=== PATIENT | female | born 1970 | race Caucasian/White ===

== ENCOUNTER → 2018-07-20 10:43 | Outpatient (CLI) | payer OTHER, SELFPAY ==
--- NOTE | 2018-07-20 | BRBX_PTH ---
PATIENT: TERRY FRANCO LOC: [facility] U#:[id number] AGE/SX: 55/F ROOM: RE07/20/[address]: Dr. Kya Bland MD : 1970 BED: DIS: SPEC #: [id number] RECD: 07/20/18 13:25 STATUS: LUIS AGUS #: [id number] YOHANA: 07/20/18 00:[address]: Kya Bland DEPT: SURGICAL PATHOLOGY RECD BY: Yousuf Potts ENTERED: 07/20/18 13:25 SP TYPE: BREAST BX OT DR: Dr. Monroe Dozier MD Tissues: Right breast, NOS Procedures: Surgery Specimen Level IV HEADER OPERATION: Right stereotactic breast biopsy PRE-OP DIAGNOSIS: Right upper outer quadrant microcalcifications TISSUE SUBMITTED: Right breast core tissue Ischemic time: 2 minutes Fixation time: 7.5 hours MICROSCOPIC DIAGNOSIS Right upper outer breast, stereotactic core biopsy: Focal intraductal hyperplasia without atypia. Nonproliferative fibrocystic change. Banal microcalcifications. No evidence of malignancy. AM:jayshree 07/21/18 MICROSCOPIC DESCRIPTION Slides are reviewed. GROSS DESCRIPTION Received is one container labeled with the patient's name and not further designated. The specimen consists of multiple irregular fragments of light marin-yellow soft tissue that in aggregate measure 2 x 1.6 x 0.2 cm. The specimen is totally submitted in one cassette. / AM:jayshree 07/20/18 TC:5 CPT: 24525
--- NOTE | 2018-07-20 16:47 | OP.PCM_ITS ---
Report of Operation Date of Procedure: 07/20/18 Pre-Operative Diagnosis: abnormal calcifications on right breast mammograms Post-Operative Diagnosis: same Surgery/Procedure Performed:: right stereotactic breast biopsy Description of Surgical Findings:: calcifications in upper outer quadrant of right breast, few calcifications seen on specimen mammogram Type of Anesthesia:: Local - 1% xylocaine Specimen's removed: right breast tissue Estimated Blood Loss (mL): < 1 ml Description of Procedure: After informed consent was given, the patient was brought into the breast biopsy suite. Appropriate time out protocol was followed. She was then placed in the prone position on the stereotactic biopsy table. The patient?s right breast was then placed at the opening at the head of the table. A strategic planning specialist compression mammogram was then obtained in the CC view. The suspicious radiological lesion was then identified. Stereo pictures of the lesion were then taken for XYZ coordinates. The Mammotome biopsy stylus was then positioned where it would be entering into the patient?s breast. The skin at this site was then cleansed with a surgical skin preparation. The skin and subcutaneous tissues at this site were then infiltrated with 1% xylocaine. A small skin incision was made with an 11 blade scalpel. The biopsy stylus was then positioned into the patient?s breast at the proper coordinates of depth. Using the Mammotome vacuum-assist device, several core samples of breast tissue were obtained. A specimen mammogram was the obtained and revealed that the suspicious lesion was within the specimen. A hemostatic marker clip was then placed into the biopsy cavity and a strategic planning specialist film revealed that it was properly deployed. The patient was then placed in the supine position and pressure was applied to the breast until no active bleeding was noted. Steristrips were applied to reapproximate the skin. A unilateral mammogram in the CC and MLO view were then taken which revealed that the marker clip was in the same area as the previous suspicious lesion. The patient tolerated the procedure well and was discharged from the breast biopsy suite in good condition. - Complications none noted
== END ==
PROVIDERS: Family Provider Family Medicine; PCP Family Medicine; Visit Provider Surgery
DX: N60.91 Unspecified benign mammary dysplasia of right breast (principal); N60.11 Diffuse cystic mastopathy of right breast; E10.9 Type 1 diabetes mellitus without complications; F41.9 Anxiety disorder, unspecified; Z79.82 Long term (current) use of aspirin; Z79.4 Long term (current) use of insulin; Z79.899 Other long term (current) drug therapy; F17.210 Nicotine dependence, cigarettes, uncomplicated
CPT/HCPCS: 19081; 88305; J7050

== ENCOUNTER 2020-09-17 16:42 | Emergency (ER) | payer OTHER, SELFPAY ==
[2020-09-17 16:42] VITALS: BP 151/86; PULSE 101; RESP 17; TEMP 36.2; O2SAT 100; BMI 25.8
--- NOTE | 2020-09-17 17:15 | ED.DCSUM_ITS ---
History of Present Illness Chief Complaint: Cold Sx Informant: Patient Current Severity: Mild Maximum Severity: Mild Narrative: The patient is a 50-year-old female with medical history significant for smoking that presents to the emergency department concerned that she may have Covid. She states that she was exposed about 10 days ago. She states that she was at a gathering with a band. She states 3 people in the band ended up testing posit crys. She states that she is also had other people that were at this gathering that tested positive. She denies any kiersten symptoms. She states she does smoke and has a cough, but states it has not significantly changed. She denies fever. She denies chest pain. She is otherwise been in her normal state of health. Prior similar symptoms: No Recent Illness/Hospitalization: No Past Medical History - Allergies and Home Meds Allergies/Adverse Reactions: Allergies No Known Allergies Allergy (Verified 09/17/20 16:44) Primary Care Physician: Monroe Dozier MD [Primary Care Provider] - Prior records reviewed: Yes Past Medical History: None Surgical History: no surgical history Smoking Status: Current every day smoker Review of Systems General: Denies: Chills, Fever, Sweats Eyes: Denies: Visual changes - bilaterally, Diplopia ENT: Denies: Rhinorrhea, Sore throat Cardiovascular: Denies: Chest pain, Palpitations Respiratory: Denies: Dyspnea, Cough, Dyspnea on exertion Gastrointestinal: Denies: Abdominal pain, Nausea, Vomiting, Diarrhea, Melena, Hematochezia Genitourinary: Denies: Dysuria, Hematuria, Frequency Musculoskeletal: Denies: Back pain, Extremity Pain Skin: Denies: Rash, Wounds Neurological: Denies: Headache, Weakness, Numbness Physical Exam Vital Signs/Narrative: Vital Signs Temp Pulse Resp BP Pulse Ox 09/17/20 16:42 97.2 F L 101 H 17 151/86 H 100 Inital Vital Signs reviewed: Yes General: Well nourished, Well developed, No Acute Distress Head: Normocephalic, Atraumatic Eyes: Perrl, EOMI ENT: Moist mucous membranes, No rhinorrhea Neck: Supple, Nontender Cardiovascular: Regular rate, Regular rhythm, No murmurs Respiratory: No distress, CTA bilaterally, Chest nontender Abdomen: Soft, Nontender, Nondistended, Normal bowel sounds Back: Nontender, Normal Inspection Extremities: Nontender, No edema Skin: Normal color, No rash Neurological: Alert, Oriented x3, Cranial nerves II-XII grossly intact, Normal Strength, Normal Sensation Psychological: Normal affect, Normal Mood Diagnostic/Tx/Re-eval - Medical Decision Making Patient is very well-appearing. She is not febrile. She is not hypoxic. She has no tachypnea. She really has no symptoms. Did discuss options. The patient will undergo a send out test. She was counseled to quarantine. She will follow-up for the results of this. She will be discharged home. Impression 1. Exposure to COVID-19 ED Disposition - Plan for ED Patient: Instructions: ED Upper Resp Infec No Abx Tx Referrals: Monroe Dozier MD [Primary Care Provider] -
== END 2020-09-17 18:02 | disposition home or self-care (01) ==
LOC: ED 18:01
PROVIDERS: Emergency Provider Emergency Medicine; PCP Family Medicine
DX: Z20.828 Contact with and (suspected) exposure to other viral communicable diseases (principal)
CPT/HCPCS: 87635; 99281; U0003

== ENCOUNTER 2020-12-31 14:10 | Inpatient (IN) | payer OTHER, SELFPAY ==
[2020-12-31] VITALS (28 sets, daily range): BP systolic 60–211; BP diastolic 38–135; PULSE 62–145; RESP 14–43; TEMP -17.7–37.9; O2SAT 92–100; BMI 32.7; BMI 32.8
[2020-12-31] MEDS: Etomidate 20 MG/10 ML Vial IV (14:18)
[2020-12-31] MEDS: 0.9% Normal Saline 1,000 ML 999 ML IV (14:20)
--- NOTE | 2020-12-31 14:20 | NURSING ---
1407 CODE BLUE 1417 STEMI
[2020-12-31] MEDS: Rocuronium Bromide 50 MG/5 ML Vial IV (14:21)
[2020-12-31] MEDS: Aspirin 300 MG Suppository RC (14:22)
[2020-12-31] MEDS: Heparin 10,000 UNITS/10 ML Vial 4000 UNITS IV (14:22)
--- NOTE | 2020-12-31 14:27 | NURSING ---
DR GUZMAN IN ROOM
--- NOTE | 2020-12-31 14:36 | EKG12_ITS ---
Test Reason : Blood Pressure : / mmHG Vent. Rate : 138 BPM Atrial Rate : 138 BPM P-R Int : 128 ms QRS Dur : 110 ms QT Int : 268 ms P-R-T Axes : 063 076 110 degrees QTc Int : 406 ms Sinus tachycardia with occasional Premature ventricular complexes ST elevation consider inferior injury or acute infarct ACUTE VT / STEMI Consider right ventricular involvement in acute inferior infarct Abnormal ECG Confirmed by OVI BARRAGAN, RUPESH ([id number]), staff editor GAUDENCIO HERZOG ([id number]) on 01/02/2021 10:28:34 AM Referred By: Rob Gracia Confirmed By:RUPESH DIOR MD
--- NOTE | 2020-12-31 14:38 | ED.DCSUM_ITS ---
- ER Visit Summary Date of Service: 12/31/20 Chief Complaint: V. fib arrest brought in by squad History of Present Illness: The patient is a 50 F history of diabetes insulin- dependent and smoker. No known cardiac history. According to the squad and the patient's sister she works to go to [employer]. Her sister also works to go to [employer]. 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 They started CPR at the scene the squad was called and arrived quickly. Family stated that she was admitted to another hospital in September for her diabetes. Sister stated that she has not had any complaints recently and did not have any complaints today prior to the episode. Physical Examination: Middle-aged female arrives via squad with a life band CPR device in place and doing CPR. She and I gel in place. Patient is unresponsive. She is not breathing on her own. Currently she is pulseless. CPR was continued. She was given a dose of epinephrine. H EENT exam unremarkable. Pupils about 3 mm bilaterally. They are not dilated. Neck nontender. Lungs clear to auscultation with bagging bilaterally. Initially she had no spontaneous heart tones. He did require abdomen soft nontender normal bowel sounds. Extremities are flaccid but warm. Initially she did not have femoral or carotid pulses. Neurologically she is completely unresponsive. Test Results: [] Emergency Department Course and Treatment: We continued CPR. Patient was given 1 dose of epinephrine here in the emergency department. She did regain pulses femoral and carotid. She was also given an amp of bicarbonate. And then a second. EKG was obtained which shows a sinus tachycardia with acute inferior wall MO. STEMI team was activated. Dr. Tarango from cardiology was in the emergency department evaluate the patient and took her to the [facility]. Prior to leaving the emergency department she had a second event where she was pulseless. Was given another dose of epinephrine. CPR was again restarted and she again regained her pulses. Patient was given a 4000 heparin bolus once the EKG confirmed acute inferior wall MO. She will be given rectal aspirin. Treatment Plan: Patient being taken to the cardiac catheterization lab for an acute inferior wall MO and cardiopulmonary arrest secondary to ventricular fibrillation. I spoken to her sisters in emergency department. She understands she is critically ill and also the concern not only of cardiac damage but also for possible anoxic brain injury. Procedure patient was given IV etomidate. Was intubated on the first attempt. I did remove her upper dentures. We obtained good bilateral breath sounds. There was a 7/2 ET tube at 22 cm at the lips. Good color change. Good vapor and ET tube. Disposition: Admission ICU from the [facility]. Impression: Acute cardiopulmonary arrest Acute ventricular fibrillation Acute PEA Acute inferior wall MO Intubated by emergency department This note was generated with Rdio dictation software. It may contain incorrect words, spelling, and punctuation that were not noted in review of the chart prior to signing ED Disposition - Plan for ED Patient: Referrals: Monroe Dozier MD [Primary Care Provider] -
--- NOTE | 2020-12-31 14:39 | NURSING ---
DR VALDEZ FOR DR BHAT
[2020-12-31 14:54] LABS: Hematocrit 39.3 % (37-47); Hemoglobin 11.9 g/dL (12.0-15.0); Mean Corp Hgb Conc 30.3 g/dL (32-36); Mean Corpuscular Hgb 29.8 pg (27.0-32.0); Mean Corpuscular Volume 98.5 fL (81-99); POSITIVE COUNT YES; POSITIVE DIFFERENTIAL YES; POSITIVE MORPHOLOGY YES; Platelet Count 108 K/mm3 (150-450); RBC Distribution Width CV 12.1 % (11.6-14.6); RBC Distribution Width SD 44.4 fl (35.1-43.9); Red Blood Count 3.99 M/mm3 (4.2-5.4); White Blood Count 9.8 K/mm3 (4.4-11.0)
--- NOTE | 2020-12-31 15:05 | CM.ED ---
Social Work Responding to Code Blue. Patient sister, Dalia present. Support provided. quill worker assisted with facilitating conversation with Dalia and Dr. Pope. Izzy Lutz also present for support. Per Dalia patient has daughter, Lian that is on her way. Dalia reports that Lian is patient HCPOA. Will continue to follow as needed. Kris Beaulieu MSW, ADAN-S
[2020-12-31 15:25] LABS: Basophil 1 % (0-1); Eosinophil 5 % (0-5); Lymphocyte 65 % (19-41); Metamyelocyte 1 % (0-1); Monocyte 4 % (0-10); Myelocyte 2 (0-0); Neutrophil-Band 8 % (0-5); Neutrophil-Segmented 14 % (47-70); Nucleated Red Bld Cells,Manual 1 % (0-5); Total Cells Counted 100 (MANUAL DIFF)
[2020-12-31 15:27] LABS: Differential Indicated MANUAL DIFF
[2020-12-31 15:28] LABS: Absolute Lymphocyte Count 6.39 X10^3/uL (0.83-4.51); Absolute Neutrophil Count 2.2 X10^3/uL (2.0-7.7); Reactive Lymphocyte 1+
[2020-12-31 15:29] LABS: Platelet Estimate SLT DEC (ADEQ); Red Cell Morphology NORM C+C NORMAL (NORM C&C)
--- NOTE | 2020-12-31 15:45 | EKG12_ITS ---
Test Reason : AM EKG Blood Pressure : / mmHG Vent. Rate : 123 BPM Atrial Rate : 123 BPM P-R Int : 114 ms QRS Dur : 084 ms QT Int : 324 ms P-R-T Axes : 061 054 102 degrees QTc Int : 463 ms Sinus tachycardia Otherwise normal ECG When compared with ECG of 01-JAN-2021 05:25, MANUAL COMPARISON REQUIRED, DATA IS UNCONFIRMED Confirmed by MEGAN BARRAGAN, ZACHARIAH ([id number]), photographic editor GAUDENCIO HERZOG ([id number]) on 01/03/2021 8:51:19 AM Referred By: Rob Gracia Confirmed By:GARY GUZMAN MD
[2020-12-31 15:51] LABS: Lactic Acid 11.1 mmol/L (0.4-1.9)
--- NOTE | 2020-12-31 15:51 | PCM.CONS.C ---
Problem List (1) Cardiac arrest Status: Acute (2) STEMI (ST elevation myocardial infarction) Status: Acute Reason for Consult Date of Consultation: 12/31/20 Reason for Consultation: cardiac arrest, STEMI History of Present Illness: The patient is a 50 year old F [who had a witnessed collapse. 911 was called and bystanders initiated CPR. When the paramedics came to the patient, she was in V. fib. CPR was continued and she required 6 shocks. CPR was continued for about half an hour on the way to the hospital. As she was entering the hospital she was in sinus rhythm and had a pulse. The EKG showed inferior ST elevation SC and STEMI alert was called. Patient was also intubated in the emergency room. She went into PEA in the emergency room and required epinephrine, bicarbonate and chest compressions for about 2 minutes. She regained a pulse and then after discussing with the family patient was brought emergently to the cardiac Primary Clinician. She was evaluated initially in the emergency room. She underwent emergency coronary angiography which revealed 99% stenosis in the RCA that was treated with drug-eluting stent basement. She has residual 70 to 80% stenosis in the proximal and mid LAD. She has an EF of around 35 to 40%. Review of systems: Patient is unresponsive and intubated. Review of systems cannot be obtained.] Past Medical History Allergies/Adverse Reactions: Allergies No Known Allergies Allergy (Verified 12/31/20 14:41) Surgical History: no surgical history Smoking Status: Unknown if ever smoked Objective: Vital Signs Temp Pulse Resp BP 0 F L 139 H 22 H 211/135 H 12/31/20 14:10 12/31/20 14:35 12/31/20 14:30 12/31/20 14:30 Oxygen Delivery Method Ambu-Bag Weight: 196 lb 10.437 oz Body Mass Index (BMI) 32.7 General: - - Intubated, unresponsive Cardiovascular: Regular Rhythm Abdomen: Distended Extremities: No edema Skin: No Rashes 12/31/20 14:20: WBC 9.8, RBC 3.99 L, Hgb 11.9 L, Hct 39.3, MCV 98.5, MCH 29.8, MCHC 30.3 L, Plt Count 108 L, MPV 11.0, Neut % (Auto) Not Reportable, Absolute Neuts (auto) 2.2, Total Counted 100, Neutrophils % (Manual) 14 L, Band Neutrophils % 8 H, Lymphocytes % (Manual) 65 H, Monocytes % (Manual) 4, Eosinophils % (Manual) 5, Basophils % (Manual) 1, Metamyelocytes % 1, Myelocytes % 2 H 12/31/20 14:20: Sodium Cancelled, Potassium Cancelled, Chloride Cancelled, Carbon Dioxide Cancelled, Anion Gap Cancelled, BUN Cancelled, Creatinine Cancelled, Est GFR (MDRD) Af Amer Cancelled, Est GFR (MDRD) Non-Af Cancelled, BUN/Creatinine Ratio Cancelled, Glucose Cancelled, Calcium Cancelled, Troponin I Cancelled 12/31/20 14:20: PT Cancelled, INR Cancelled, APTT Cancelled 12/31/20 15:10: Lactic Acid 11.1 H* 12/31/20 15:10: PT Cancelled, INR Cancelled, APTT Cancelled Rhythm: EKG: ECHO: Stress Test: Cardiac Cath: PCI: CT Surgery: Holter monitor: EPS: PPM: CXR: Chest CT Scan: Assessment/Plan 1. Cardiac arrest: Secondary to inferior ST elevation SC. Patient was initially in V. fib and then was in PEA. She underwent PCI to the RCA. She is intubated. We will admit her to the ICU for further management. Her clinical condition was discussed with the family in detail. It appears that she was in cardiac arrest for about half an hour. 2. Inferior ST elevation SC: Patient was treated with JOSE J to the RCA. We will keep her on dual antiplatelet therapy, statin. Her blood pressure is on the low side and we are not able to start her on a beta-sanaz or CHAVA inhibitor at this time.
[2020-12-31 15:52] LABS: Anion Gap 16 (5-15); BUN 11 mg/dL (7-18); BUN/Creat Ratio 8.4 RATIO (10-20); Calcium,Total 6.6 mg/dL (8.5-10.1); Chloride 105 mmol/L (98-107); Creatinine, Serum 1.31 mg/dL (0.55-1.02); EST Glomerular Filtration Rate 46 mL/min (>60); Est Glom Filt Rate - Afr Amer 56 mL/min (>60); Estimated Creatinine Clearance 47.26 ml/min; Glucose 438 mg/dL (74-106); Potassium 2.6 mmol/L (3.5-5.1); Sodium Level 144 mmol/L (136-145)
--- NOTE | 2020-12-31 15:56 | CHAPLAIN ---
Type of Pastoral Visit ___ Initial Visit ___ Follow-up Visit ___ On-call Visit ___ General Patient Visit ___ Spiritual Assessment ___ Family Conference ___ Bereavement ___ Rapid Response _x__ Code Blue ___ Other (describe below) Pastoral Care Referral From ___ Patient ___ Family ___ Nurse ___ Physician ___ Open End Spinning Operator ___ Vulcanizing Machine Operator _x__ Other (describe below) Sacrament/Intervention _x__ Active listening ___ Anointing ___ Synagogue ___ Bereavement ___ Communion ___ Serenity exploration ___ ___ Life review ___ Prayer ___ Reconciliation ___ Sacrament of Sick _x__ Supportive presence ___ Wedding ___ Other (describe below) Pastoral Comments responded to Code Blue which turned into Stemi and then Catheterization; sister/co-worker was present and along with SW support and presence was given; escorted sister to Plumbing Installer and stayed present as other family members arrived and joined the waiting; was present and gave water, food, and updates from staff to the family; SW followed up and hand off made
--- NOTE | 2020-12-31 16:03 | PCM.HP.STD ---
Problem List (1) Ventricular fibrillation Status: Acute (2) Acute hypoxic respiratory failure Status: Acute (3) Cardiac arrest Status: Acute (4) STEMI (ST elevation myocardial infarction) Status: Acute History of Present Illness Date of Admission: 12/31/20 Chief Complaint: Cardiac arrest outside hospital The patient is a 50 year old F with diabetes mellitus type 1, chronic smoker was brought by EMS with cardiac arrest outside hospital. 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 She started CPR at the scene and EMS arrived on the scene and took over. Patient was witnessed cardiac arrest at 1315 hrs. Patient was in V. fib and was shocked multiple times and then PEA. Patient had LMA with Ambu bag. 4 doses of epi given and 300 mg of IV amiodarone. Patient arrived in ER. Patient was on bag mask ventilation and CPR and received epinephrine, bicarbonate and was shocked. In ED, CPR was continued, PEA and had Epinephrine and bicarbonate. The patient was intubated. Twelve-lead EKG shows inferior wall STEMI. Sinus tachycardia at 138 bpm, reciprocal changes in V1 V2. [place] interval 128 ms, first-degree AV block, QRS 110 ms, QTC 406 ms. Patient was taken emergently to [employer] [facility] and mid RCA was 99% stenosis and had PCI and stent inserted. Patient is admitted in ICU. I talked briefly with the patient's daughter and sisters present in the [employer] [facility]. I discussed with Dr. Tarango about the [employer] [facility] report. [] Past Medical History Allergies No Known Allergies Allergy (Verified 12/31/20 14:41) Surgical History: no surgical history Smoking Status: Unknown if ever smoked - *Family History Maternal History Items: Unknown Review of Systems Unable to obtain accurate/complete ROS d/t: Unconscious, unresponsive, intubated. VTE Information - Inpt Only VTE Present on Admission: No VTE Mechan Device Prophylaxis: SCD's Reason prophylaxis not ordered:: Treatment Not Indicated - Patient just had a STEMI Patient Problems: Active and Suspected Problems Cardiac arrest (Acute) STEMI (ST elevation myocardial infarction) (Acute) Ventricular fibrillation (Acute) Acute hypoxic respiratory failure (Acute) Objective: Physical exam General: Unconscious, unresponsive, intubated on ventilator. HEENT: Bilateral pupils dilated. No light reflex or corneal reflex elicited. Oral: ET tube present. Neck: Supple, No JVD, Negative Carotid Bruits Lungs: Patient intubated on ventilator. Air entry diminished in bilateral lung bases. Cardiovascular: Heart sounds muffled. Carotid pulse present. No murmur gallop or rub. Abdomen: Possible gaseous from Ambu bag. Bowel Sounds absent, Soft, Non Tender. : No renal angle tenderness. No suprapubic tenderness. Extremities: No edema, Capillary Refill Less than 3 Seconds Skin: No rashes, No breakdown Musculoskeletal: No Tenderness to Palpation of Joints or Extremities Neurological: Neuro exam unobtainable. Psych/Mental Status: Intubated. - Physical Exam Vitals/I&O's: Vital Signs Temp Pulse Resp BP 0 F L 139 H 22 H 211/135 H 12/31/20 14:10 12/31/20 14:35 12/31/20 14:30 12/31/20 14:30 Oxygen Delivery Method Ambu-Bag Weight: 196 lb 10.437 oz Body Mass Index (BMI) 32.7 Laboratory Results 12/31/20 14:20: WBC 9.8, RBC 3.99 L, Hgb 11.9 L, Hct 39.3, MCV 98.5, MCH 29.8, MCHC 30.3 L, RDW Std Deviation 44.4 H, RDW Coeff of Ana 12.1, Plt Count 108 L, MPV 11.0, Neut % (Auto) Not Reportable, Absolute Neuts (auto) 2.2, Absolute Lymphs (auto) 6.39 H, Total Counted 100, Neutrophils % (Manual) 14 L, Band Neutrophils % 8 H, Lymphocytes % (Manual) 65 H, Monocytes % (Manual) 4, Eosinophils % (Manual) 5, Basophils % (Manual) 1, Metamyelocytes % 1, Myelocytes % 2 H, Nucleated RBCs/100 WBC 1, Diff Path Review May foll, Reactive Lymphocytes 1+, Platelet Estimate SLT DEC, RBC Morphology NORM C+C 12/31/20 14:20: Sodium Cancelled, Potassium Cancelled, Chloride Cancelled, Carbon Dioxide Cancelled, Anion Gap Cancelled, BUN Cancelled, Creatinine Cancelled, Estim Creat Clear Calc Cancelled, Est GFR (MDRD) Af Amer Cancelled, Est GFR (MDRD) Non-Af Cancelled, BUN/Creatinine Ratio Cancelled, Glucose Cancelled, Calcium Cancelled, Troponin I Cancelled 12/31/20 14:20: PT Cancelled, INR Cancelled, APTT Cancelled 12/31/20 15:10: Lactic Acid 11.1 H* 12/31/20 15:10: PT Cancelled, INR Cancelled, APTT Cancelled 12/31/20 15:10: Sodium 144, Potassium 2.6 L*, Chloride 105, Carbon Dioxide 23.0, Anion Gap 16 H, BUN 11, Creatinine 1.31 H, Estim Creat Clear Calc 47.26, Est GFR (MDRD) Af Amer 56 L, Est GFR (MDRD) Non-Af 46 L, BUN/Creatinine Ratio 8.4 L, Glucose 438 H, Calcium 6.6 L, Troponin I 3.870 H* Current Medications Aspirin (Aspirin E.C. 81 Mg Tablet) 81 mg PO DAILY@0800 [facility] Atorvastatin Calcium (Atorvastatin Calcium 40 Mg Tablet) 40 mg PO QHS [facility] Atropine Sulfate (Atropine Sulfate 1 Mg/10 Ml Syringe) 0.5 mg IV UD PRN PRN Reason: HR <50 bpm Heparin Sodium (Beef Lung) (Heparin Lock 500 Unit/5 Ml In 10 Ml Syringe) 500 unit IV UD PRN PRN Reason: HEPARIN FLUSH Sodium Chloride () 1,000 mls @ 60 mls/hr IV .[id number] [facility] Eptifibatide (Integrilin) 75 mg in 100 mls @ 14.272 mls/hr CONT INF .Q7H1M [facility] Stop: 12/31/20 19:00 Labetalol HCl (Labetalol (Prefilled) 20 Mg/4 Ml) 5 mg IV X1 PRN PRN Reason: SBP >160 when pulling sheath Stop: 01/02/21 15:45 Sodium Chloride (0.9% Normal Saline 500 Ml Iv.Soln.) 500 ml IV BOLUS PRN PRN Reason: VASO-VAGAL PROTOCOL Ticagrelor (Ticagrelor 90 Mg Tablet) 180 mg PO X1 ONE Stop: 12/31/20 15:46 Ticagrelor (Ticagrelor 90 Mg Tablet) 90 mg PO BID [facility] Assessment/Plan All Active Problems Cardiac arrest (Acute) STEMI (ST elevation myocardial infarction) (Acute) Ventricular fibrillation (Acute) Acute hypoxic respiratory failure (Acute) The patient is a 50 year old F with diabetes mellitus type 1, chronic smoker was brought by EMS with cardiac arrest outside hospital.Twelve-lead EKG shows inferior wall STEMI. Sinus tachycardia at 138 bpm, reciprocal changes in V1 V2. [place] interval 128 ms, first-degree AV block, QRS 110 ms, QTC 406 ms. Patient is admitted in ICU. 1. Cardiac arrest mostly due to inferior wall STEMI, complicated with ventricular fibrillation, PEA: Patient had short period of asystole in [employer] [facility] and had 1 dose of epinephrine and atropine in [employer] [facility] as per cruise staff member. Patient had emergent cardiac cath with PCI/stent in mid RCA. Mid RCA was about 99% stenosis. Patient is admitted in ICU. On aspirin, Brilinta, atorvastatin. Patient blood pressure is still low therefore no CHAVA or ARB if needed. Lactic acid 11.1, troponin III 0.87. 1 L Ringer lactate and then 150 mill per hour. Patient has sheath left on the radial artery access for A-line monitoring. 2. Acute hypoxic respiratory failure with cardiac arrest: Patient is on ventilator. ABG stat ordered. Patient has severe hypokalemia, K2.6, bicarb 23, anion gap 16. 40 M EQ IV KCl bolus. Serum magnesium, phosphorus, PT/INR, UA ordered. Serum test also ordered. COVID-19 PCR negative on 09/17/2020. 3. Severe hypokalemia, ventricular fibrillation, PEA: As mentioned above 4. Diabetes mellitus type 1: Accu-Chek every 4 hourly and cover with Humalog sliding scale. Glucose in BMP 438. A1c tomorrow a.m. 5. Chronic smoker: VTE prophylaxis: Bilateral SCDs. Patient just had cardiac cath therefore no antithrombotic agent for next 24 hours. Prognosis: I talked briefly with the patient's daughter and sisters present in the [employer] [facility]. I talked to the patient's daughter and 3 other sisters and try to explain the possibility of anoxic brain injury for prolonged period of cardiac arrest, CPR and difficulty in extubation. Inpatient E&M: 96571 Init Hosp L3
[2020-12-31 16:16] LABS: Base Excess 0 mmol/L (-2 to +2); Bicarbonate 25.7 mmol/L (22-26); Blood Gas Specimen Type ART; FI02 100; Mode AC; O2 Delivery Device Adult Vent; PEEP 5; PO2 230 mmHG (75-100); RR 24; SITE Art Line; SO2 100 % (95-99); Total Carbon Dioxide 27 mmol/L; Vt 450; pCO2 46.8 mmHg (35-45); pH 7.35 (7.35-7.45)
--- NOTE | 2020-12-31 16:25 | RAD_ITS ---
STUDY: X-RAY CHEST REASON FOR EXAM: Female, 50 years old. ETT PLACEMENT, OG PLACEMENT, S/P CPR TECHNIQUE: Single AP portable view of the chest. COMPARISON: FINDINGS: Interval placement of endotracheal tube with the tip approximately 3 cm above the kenisha. Interval placement of nasogastric tube with the tip below the diaphragm. Alveolar opacity throughout the right lung consistent with right-sided pneumonia. There is no demonstrated pleural abnormality. Normal size heart. Normal mediastinum and ish. Normal visualized pulmonary arteries. Normal visualized aortic arch and descending thoracic aorta. Normal visualized thoracic spine. Normal visualized ribs, clavicles, and shoulders. There is no demonstrated abnormality of the visualized soft tissue structures of the upper abdomen. RAD/Chest 1 View (Portable) IMPRESSION: 1. Interval placement of endotracheal tube with tip approximately 3 7 m above the kenisha. 2. Interval placement of nasogastric tube with the tip below the diaphragm. 3. Right-sided pneumonia. Electronically Signed: Akash Jamse MD at 17:23 EST Tel , Service support ,
[2020-12-31] MEDS: Propofol 10MG/Ml 1,000 MG/100 ML Bottle 5.4 MG CONT INF (16:44)
[2020-12-31] MEDS: Lactated Ringers 1,000 ML 999 ML IV ×2 (16:46→18:00)
[2020-12-31 16:49] LABS: Mucous, Urine 0 SEEN /hpf (<or=2+); Squamous Epithelial Cells - UA 0 SEEN /hpf (5-10)
--- NOTE | 2020-12-31 16:53 | PCS.PANDOC ---
PANDEMIC DOCUMENTATION INITIATED: Date: 12/31/20 Time: 5517
[2020-12-31 16:56] LABS: Hematocrit 34.5 % (37-47); Hemoglobin 11.6 g/dL (12.0-15.0); Mean Corp Hgb Conc 33.6 g/dL (32-36); Mean Corpuscular Hgb 30.9 pg (27.0-32.0); Mean Platelet Vol. 9.4 fl (6.2-12.0); Platelet Count 290 K/mm3 (150-450); RBC Distribution Width CV 12.2 % (11.6-14.6); RBC Distribution Width SD 41.2 fl (35.1-43.9); Red Blood Count 3.75 M/mm3 (4.2-5.4); White Blood Count 22.6 K/mm3 (4.4-11.0)
[2020-12-31 16:57] LABS: Color, Urine Yellow (Yellow); Glucose, Dipstick 1000 mg/dl (Normal); Ketone-Dipstick Negative (Negative); Leukocyte Esterase-Dipstick 25 /ul (Negative); Nitrite-Dipstick Negative (Negative); Occult Blood-Urine 250 /ul (Negative); Protein-Dipstick 100 mg/dl (Negative); Urine Bilirubin Dipstick Negative (Negative); Urine Clarity Sl. Cloudy (Clear); Urine Urobilinogen Normal (Normal)
[2020-12-31 16:58] LABS: Internal QC Validated? YES +Cl - CLEAR BKGD; International Normalized Ratio 1.4; Pregnancy, Serum, hCG Quali. NEGATIVE Negative; Prothrombin Time (Protime)PT. 16.7 SECONDS (11.7-14.9)
[2020-12-31 17:00] LABS: Magnesium 1.8 mg/dL (1.6-2.6)
[2020-12-31 17:03] LABS: POSITIVE COUNT NO; POSITIVE DIFFERENTIAL NO; POSITIVE MORPHOLOGY NO; Scan Indicated on CBC? Y/N NO
[2020-12-31 17:06] LABS: Bacteria RARE /hpf (None Seen); Red Blood Cells-Urine 5-10 SEEN /hpf (0-5); White Blood Cells 0-5 SEEN /hpf (0-5)
[2020-12-31 17:15] LABS: Partial Thromboplast Time > 250.0 Seconds (24.1-36.2)
[2020-12-31 17:22] LABS: CPK Total, Creatine Kinase 1504 U/L (26-192); Triglycerides 59 mg/dL
[2020-12-31] MEDS: Lactated Ringers 1,000 ML 150 ML IV ×2 (17:23→23:53)
[2020-12-31] MEDS: Potassium Chloride 10mEq/100mL 10 MEQ/100 ML IV.SOLN. 100 MEQ IV BOLUS ×4 (17:23→21:35)
[2020-12-31 17:56] LABS: AST(SGOT) 387 U/L (15-37); Alanine Aminotransfer ALT/SGPT 161 U/L (13-56); Albumin, Serum 2.7 g/dL (3.2-5.0); Alkaline Phosphatase 419 U/L (45-117); Bilirubin, Direct 0.11 mg/dL (0.00-0.30); Globulin 3.3 g/dL (2.2-4.2); Phosphorus 4.4 mg/dL (2.5-4.9)
[2020-12-31 18:04] LABS: M R Staph aureus DNA By PCR Negative (Negative); Probe Check PASS; Specimen Processing Control PASS
--- NOTE | 2020-12-31 18:25 | RAD_ITS ---
STUDY: X-RAY - ABDOMEN/PELVIS REASON FOR EXAM: Female, 50 years old. NG/OG tube placement TECHNIQUE: Single AP view of the abdomen / pelvis. COMPARISON: None. FINDINGS: Normal visualized lung bases. Nasogastric tube is coiled in the fundus of the stomach. Abnormal loops of small bowel are seen in the left mid abdomen. RAD/Abdomen Single View (Portable) IMPRESSION: Nasogastric tube is coiled in the fundus of the stomach. Electronically Signed: Dariel Eid MD at 19:19 EST , Service support ,
[2020-12-31 19:17] LABS: Reflex Lactate? Y
--- NOTE | 2020-12-31 20:00 | RAD_ITS ---
STUDY: X-RAY CHEST REASON FOR EXAM: Female, 50 years old. CENTRAL LINE PLACEMENT TECHNIQUE: Single AP portable view of the chest. COMPARISON: Same day 4:18 PM. FINDINGS: Endotracheal tube terminates 3.5 cm above the kenisha. Nasogastric tube coiled in the fundus of the stomach. New right IJ line terminates in the mid SVC. No pneumothorax. No other change since 4 hours earlier. Electronically Signed: Dariel Eid MD at 20:38 EST , Service support , RAD/Chest 1 View (Portable)
--- NOTE | 2020-12-31 20:10 | PRO.PCM_ITS ---
Problem List (1) Ventricular fibrillation Status: Acute (2) Acute hypoxic respiratory failure Status: Acute (3) Cardiac arrest Status: Acute (4) STEMI (ST elevation myocardial infarction) Status: Acute Procedure Report Date of Procedure: 12/31/20 Ultrasound-guided right IJ CVC catheter insertion Indication: Shock most probably cardiac shock but may be additional septic shock, needs vasopressor Procedure: Right neck and supraclavicular area was sterilized and draped. With ultrasound probe, right IJ was located and marked. Lidocaine 1% was used for local anesthesia. Under ultrasound guidance, right IJ vein was punctured and guidewire was passed without obstruction. Subsequently, the track was dilated with dilator and triple-lumen catheter was inserted over the guidewire. Good venous blood return from all 3 ports. Dressing was done. No hematoma or excessive bleeding. Portable chest x-ray was ordered, done and reviewed. Right IJ tip is at cavoat rial junction. No pneumothorax. Other findings as right lung diffuse infiltrates suggestive of possible pneumonic infiltrates or possible aspiration Procedures: [id number] Insert Non-tunnel CV Cath
[2020-12-31 21:14] LABS: Lactic Acid 5.2 mmol/L (0.4-1.9)
[2020-12-31] MEDS: TICAGRELOR 90 MG TABLET 180 MG PO (21:41)
[2020-12-31] MEDS: Atorvastatin Calcium 40 MG Tablet PO (21:50)
[2020-12-31] MEDS: Propofol 10MG/Ml 1,000 MG/100 ML Bottle 10.7 MG CONT INF (23:49)
[2021-01-01] VITALS (74 sets, daily range): BP systolic 71–154; BP diastolic 34–95; PULSE 83–150; RESP 12–43; TEMP 36.6–39.1; O2SAT 91–99; BMI 24.1
[2021-01-01 04:08] LABS: Absolute Lymphocyte Count 0.85 X10^3/uL (0.83-4.51); Absolute Neutrophil Count 21.3 X10^3/uL (2.0-7.7); Basophil# 0.05 X10^3/uL; Basophil% 0.2 % (0-1); Eosinophil# 0.01 X10^3/uL; Hematocrit 30.4 % (37-47); Hemoglobin 10.1 g/dL (12.0-15.0); Lymphocyte # 0.85 X10^3/ul (4.0); Lymphocyte % 3.6 % (19-41); Mean Corp Hgb Conc 33.2 g/dL (32-36); Mean Corpuscular Volume 93.3 fL (81-99); Mean Platelet Vol. 9.6 fl (6.2-12.0); Monocyte% 5.1 % (0-10); NRBC Flagged by Analyzer 0 % (0-5); Neutrophil # 21.28 X10^3/uL (2.7-7.7); Neutrophil % 90.2 % (47-70); POSITIVE DIFFERENTIAL YES; Platelet Count 230 K/mm3 (150-450); RBC Distribution Width CV 12.4 % (11.6-14.6); RBC Distribution Width SD 42.2 fl (35.1-43.9); Red Blood Count 3.26 M/mm3 (4.2-5.4); White Blood Count 23.6 K/mm3 (4.4-11.0)
[2021-01-01 04:09] LABS: Differential Indicated SCAN CRITERIA MET
[2021-01-01] MEDS: Insulin Lispro 100 UNIT/ML INSULN.PEN SC ×2 (04:59→10:36)
[2021-01-01 05:11] LABS: ALB/GLOB Ratio 0.8 RATIO (0.9-2.4); AST(SGOT) 292 U/L (15-37); Alanine Aminotransfer ALT/SGPT 124 U/L (13-56); Albumin, Serum 2.4 g/dL (3.2-5.0); Alkaline Phosphatase 288 U/L (45-117); Anion Gap 13 (5-15); BUN 21 mg/dL (7-18); BUN/Creat Ratio 13.5 RATIO (10-20); Calcium,Total 7.7 mg/dL (8.5-10.1); Chloride 106 mmol/L (98-107); Creatinine, Serum 1.55 mg/dL (0.55-1.02); EST Glomerular Filtration Rate 38 mL/min (>60); Est Glom Filt Rate - Afr Amer 46 mL/min (>60); Estimated Creatinine Clearance 38.33 ml/min; Glucose 498 mg/dL (74-106); Potassium 4.4 mmol/L (3.5-5.1); Protein, Total 5.4 g/dL (6.4-8.2); Sodium Level 141 mmol/L (136-145); Thyroid Stim Hormone (TSH) 2.79 uIU/mL (0.358-3.74)
--- NOTE | 2021-01-01 06:20 | CON.PCM_ITS ---
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 The patient does have a known history of type 1 diabetes mellitus. The remainder of her medical history is unknown, as there is no family available at the bedside. On presentation to the emergency department, CPR was in progress. The patient's eye gel was removed and she was intubated with an endotracheal tube. Shortly after arriving to the ED, return of spontaneous circulation was achieved. Cardiology was contacted to evaluate the patient after an EKG revealed sinus tachycardia with an acute inferior wall GA. Prior to leaving the emergency department, the patient once again became pulseless and experienced a second arrest due to ventricular fibrillation. The patient underwent cardiac catheterization which revealed a 99% stenosis in the RCA which was treated with a drug-eluting stent. She was noted to have residual 70 to 80% stenosis in the proximal and mid LAD. Ejection fraction was noted to be 35 to 40%. The patient did develop an elevated white blood cell count to 22,000 overnight. She did have a presenting potassium which was low at 2.6 noted on her chemistry profile. Creatinine was elevated at 1.3. Initial lactate was documented to be 11.1. Urine analysis was largely unremarkable. MRSA screen was negative. Chest x-ray revealed diffuse right-sided airspace opacities. Past Medical History Allergies No Known Allergies Allergy (Verified 12/31/20 14:41) Surgical History: no surgical history Smoking Status: Unknown if ever smoked - *Family History Maternal History Items: Unknown Review of Systems Unable to obtain accurate/complete ROS d/t: Due to current intubation and mechanical ventilation status Patient Problems: Active and Suspected Problems Cardiac arrest (Acute) STEMI (ST elevation myocardial infarction) (Acute) Ventricular fibrillation (Acute) Acute hypoxic respiratory failure (Acute) Objective: The patient's most recent lab work, culture data and imaging studies have all been personally reviewed. Respiratory viral panel was negative. Strep and urine Legionella antigens were negative. Blood and sputum cultures are pending. - Physical Exam Vitals/I&O's: Vital Signs Temp Pulse Resp BP Pulse Ox 99.9 F H 124 H 12 105/53 L 95 02/10/21 05:00 01/01/21 05:00 01/01/21 05:00 01/01/21 05:00 01/01/21 05:00 Oxygen Delivery Method Mechanical Ventilator Weight: 144 lb 13.499 oz Body Mass Index (BMI) 32.8 Intake and Output for Last 24 Hours 12/30/20 12/31/20 01/01/21 23:59 23:59 23:59 Intake Total 4938.52 / 4993.63 209.75 / 209.75 Output Total 295 / 395 810 / 810 Balance 4643.52 / 4598.63 -600.25 / -600.25 General: - - Currently intubated and mechanically ventilated. No ventilator dyssynchrony noted. HEENT: Atraumatic, Normocephalic, - - Brisk left pupillary response Oral: No Gingival or Mucosal Lesions/ Ulcerations, - - Endotracheal and OG tubes in place Neck: Supple, No Nodes, Trachea Midline, - - Right IJ central venous catheter in place Lungs: No rhonchi, No wheeze, No rales, Diminished Cardiovascular: Normal S1, Normal S2, No murmurs, Tachycardic Abdomen: Bowel Sounds Present, Soft, Non Tender Extremities: No clubbing, No cyanosis, No edema Skin: No breakdown Musculoskeletal: No Muscle Wasting Lymphatic: No Cervical, Supraclavicular, or Inguinal Adenopathy Neurological: - - The patient is currently off of all forms of sedation and remains nonresponsive. She is, nevertheless, overbreathing the set rate on the ventilator. Labs (Last 48 Hours) 12/31/20 12/31/20 12/31/20 14:20 14:20 14:20 WBC 9.8 RBC 3.99 L Hgb 11.9 L Hct 39.3 MCV 98.5 MCH 29.8 MCHC 30.3 L RDW Std Deviation 44.4 H RDW Coeff of Ana 12.1 Plt Count 108 L MPV 11.0 Immature Gran % (Auto) Neut % (Auto) Not Reportable Lymph % (Auto) [place] % (Auto) Eos % (Auto) Baso % (Auto) Absolute Neuts (auto) 2.2 Absolute Lymphs (auto) 6.39 H Total Counted 100 Neutrophils % (Manual) 14 L Band Neutrophils % 8 H Lymphocytes % (Manual) 65 H Monocytes % (Manual) 4 Eosinophils % (Manual) 5 Basophils % (Manual) 1 Metamyelocytes % 1 Myelocytes % 2 H Nucleated RBC % Nucleated RBCs/100 WBC 1 Diff Path Review May foll Reactive Lymphocytes 1+ Platelet Estimate SLT DEC RBC Morphology NORM C+C PT Cancelled INR Cancelled APTT Cancelled Specimen Type Sample Site pH Bicarbonate Actual Total CO2 Base Excess O2 Saturation O2 % ABG pCO2 ABG pO2 Respiration Rate O2 Delivery Device Vent Mode Tidal Volume POC PEEP Sodium Cancelled Potassium Cancelled Chloride Cancelled Carbon Dioxide Cancelled Anion Gap Cancelled BUN Cancelled Creatinine Cancelled Estim Creat Clear Calc Cancelled Est GFR (MDRD) Af Amer Cancelled Est GFR (MDRD) Non-Af Cancelled BUN/Creatinine Ratio Cancelled Glucose Cancelled Lactic Acid Calcium Cancelled Phosphorus Magnesium Total Bilirubin Direct Bilirubin AST ALT Alkaline Phosphatase Total Creatine Kinase Troponin I Cancelled Total Protein Albumin Globulin Albumin/Globulin Ratio Triglycerides TSH Serum , Qual Urine Color Urine Clarity Urine pH Ur Specific Adams Urine Protein Urine Glucose (UA) Urine Ketones Urine Occult Blood Urine Nitrite Urine Bilirubin Urine Urobilinogen Ur Leukocyte Esterase Urine RBC Urine WBC Ur Squamous Epith Cells Urine Bacteria Urine Mucus MRSA (PCR) 12/31/20 12/31/20 12/31/20 15:10 15:10 15:10 WBC RBC Hgb Hct MCV MCH MCHC RDW Std Deviation RDW Coeff of Ana Plt Count MPV Immature Gran % (Auto) Neut % (Auto) Lymph % (Auto) [place] % (Auto) Eos % (Auto) Baso % (Auto) Absolute Neuts (auto) Absolute Lymphs (auto) Total Counted Neutrophils % (Manual) Band Neutrophils % Lymphocytes % (Manual) Monocytes % (Manual) Eosinophils % (Manual) Basophils % (Manual) Metamyelocytes % Myelocytes % Nucleated RBC % Nucleated RBCs/100 WBC Diff Path Review Reactive Lymphocytes Platelet Estimate RBC Morphology PT Cancelled INR Cancelled APTT Cancelled Specimen Type Sample Site pH Bicarbonate Actual Total CO2 Base Excess O2 Saturation O2 % ABG pCO2 ABG pO2 Respiration Rate O2 Delivery Device Vent Mode Tidal Volume POC PEEP Sodium 144 Potassium 2.6 L* Chloride 105 Carbon Dioxide 23.0 Anion Gap 16 H BUN 11 Creatinine 1.31 H Estim Creat Clear Calc 47.26 Est GFR (MDRD) Af Amer 56 L Est GFR (MDRD) Non-Af 46 L BUN/Creatinine Ratio 8.4 L Glucose 438 H Lactic Acid 11.1 H* Calcium 6.6 L Phosphorus Magnesium Total Bilirubin Direct Bilirubin AST ALT Alkaline Phosphatase Total Creatine Kinase Troponin I 3.870 H* Total Protein Albumin Globulin Albumin/Globulin Ratio Triglycerides TSH Serum , Qual Urine Color Urine Clarity Urine pH Ur Specific Adams Urine Protein Urine Glucose (UA) Urine Ketones Urine Occult Blood Urine Nitrite Urine Bilirubin Urine Urobilinogen Ur Leukocyte Esterase Urine RBC Urine WBC Ur Squamous Epith Cells Urine Bacteria Urine Mucus MRSA (PCR) 12/31/20 12/31/20 12/31/20 16:08 16:35 16:35 WBC 22.6 H RBC 3.75 L Hgb 11.6 L Hct 34.5 L MCV 92.0 D MCH 30.9 MCHC 33.6 D RDW Std Deviation 41.2 RDW Coeff of Ana 12.2 Plt Count 290 MPV 9.4 Immature Gran % (Auto) Neut % (Auto) Lymph % (Auto) [place] % (Auto) Eos % (Auto) Baso % (Auto) Absolute Neuts (auto) Absolute Lymphs (auto) Total Counted Neutrophils % (Manual) Band Neutrophils % Lymphocytes % (Manual) Monocytes % (Manual) Eosinophils % (Manual) Basophils % (Manual) Metamyelocytes % Myelocytes % Nucleated RBC % Nucleated RBCs/100 WBC Diff Path Review Reactive Lymphocytes Platelet Estimate RBC Morphology PT 16.7 H INR 1.4 APTT > 250.0 H* Specimen Type ART Sample Site Art Line pH 7.35 Bicarbonate Actual 25.7 Total CO2 27 Base Excess 0 O2 Saturation 100 H O2 % 100 ABG pCO2 46.8 H ABG pO2 230 H Respiration Rate 24 O2 Delivery Device Adult Vent Vent Mode AC Tidal Volume 450 POC PEEP 5 Sodium Potassium Chloride Carbon Dioxide Anion Gap BUN Creatinine Estim Creat Clear Calc Est GFR (MDRD) Af Amer Est GFR (MDRD) Non-Af BUN/Creatinine Ratio Glucose Lactic Acid Calcium Phosphorus Magnesium Total Bilirubin Direct Bilirubin AST ALT Alkaline Phosphatase Total Creatine Kinase Troponin I Total Protein Albumin Globulin Albumin/Globulin Ratio Triglycerides TSH Serum , Qual Urine Color Urine Clarity Urine pH Ur Specific Adams Urine Protein Urine Glucose (UA) Urine Ketones Urine Occult Blood Urine Nitrite Urine Bilirubin Urine Urobilinogen Ur Leukocyte Esterase Urine RBC Urine WBC Ur Squamous Epith Cells Urine Bacteria Urine Mucus MRSA (PCR) 12/31/20 12/31/20 12/31/20 16:35 16:35 16:35 WBC RBC Hgb Hct MCV MCH MCHC RDW Std Deviation RDW Coeff of Ana Plt Count MPV Immature Gran % (Auto) Neut % (Auto) Lymph % (Auto) [place] % (Auto) Eos % (Auto) Baso % (Auto) Absolute Neuts (auto) Absolute Lymphs (auto) Total Counted Neutrophils % (Manual) Band Neutrophils % Lymphocytes % (Manual) Monocytes % (Manual) Eosinophils % (Manual) Basophils % (Manual) Metamyelocytes % Myelocytes % Nucleated RBC % Nucleated RBCs/100 WBC Diff Path Review Reactive Lymphocytes Platelet Estimate RBC Morphology PT Cancelled INR Cancelled APTT Specimen Type Sample Site pH Bicarbonate Actual Total CO2 Base Excess O2 Saturation O2 % ABG pCO2 ABG pO2 Respiration Rate O2 Delivery Device Vent Mode Tidal Volume POC PEEP Sodium Potassium Chloride Carbon Dioxide Anion Gap BUN Creatinine Estim Creat Clear Calc Est GFR (MDRD) Af Amer Est GFR (MDRD) Non-Af BUN/Creatinine Ratio Glucose Lactic Acid Calcium Phosphorus Magnesium 1.8 Total Bilirubin Direct Bilirubin AST ALT Alkaline Phosphatase Total Creatine Kinase Troponin I Total Protein Albumin Globulin Albumin/Globulin Ratio Triglycerides TSH Serum , Qual NEGATIVE Urine Color Urine Clarity Urine pH Ur Specific [place] Urine Protein Urine Glucose (UA) Urine Ketones Urine Occult Blood Urine Nitrite Urine Bilirubin Urine Urobilinogen Ur Leukocyte Esterase Urine RBC Urine WBC Ur Squamous Epith Cells Urine Bacteria Urine Mucus MRSA (PCR) 12/31/20 12/31/20 12/31/20 16:35 16:35 16:40 WBC RBC Hgb Hct MCV MCH MCHC RDW Std Deviation RDW Coeff of Ana Plt Count MPV Immature Gran % (Auto) Neut % (Auto) Lymph % (Auto) [place] % (Auto) Eos % (Auto) Baso % (Auto) Absolute Neuts (auto) Absolute Lymphs (auto) Total Counted Neutrophils % (Manual) Band Neutrophils % Lymphocytes % (Manual) Monocytes % (Manual) Eosinophils % (Manual) Basophils % (Manual) Metamyelocytes % Myelocytes % Nucleated RBC % Nucleated RBCs/100 WBC Diff Path Review Reactive Lymphocytes Platelet Estimate RBC Morphology PT INR APTT Specimen Type Sample Site pH Bicarbonate Actual Total CO2 Base Excess O2 Saturation O2 % ABG pCO2 ABG pO2 Respiration Rate O2 Delivery Device Vent Mode Tidal Volume POC PEEP Sodium Potassium Chloride Carbon Dioxide Anion Gap BUN Creatinine Estim Creat Clear Calc Est GFR (MDRD) Af Amer Est GFR (MDRD) Non-Af BUN/Creatinine Ratio Glucose Lactic Acid Calcium Phosphorus 4.4 Magnesium Total Bilirubin 0.50 Direct Bilirubin 0.11 AST 387 H ALT 161 H Alkaline Phosphatase 419 H Total Creatine Kinase 1504 H Troponin I Total Protein 6.0 L Albumin 2.7 L Globulin 3.3 Albumin/Globulin Ratio Triglycerides 59 TSH Serum , Qual Urine Color Yellow Urine Clarity Sl. Cloudy Urine pH 5.0 Ur Specific Adams 1.010 Urine Protein 100 H Urine Glucose (UA) 1000 H Urine Ketones Negative Urine Occult Blood 250 H Urine Nitrite Negative Urine Bilirubin Negative Urine Urobilinogen Normal Ur Leukocyte Esterase 25 H Urine RBC 5-10 SEEN Urine WBC 0-5 SEEN Ur Squamous Epith Cells 0 SEEN Urine Bacteria RARE Urine Mucus 0 SEEN MRSA (PCR) 12/31/20 12/31/20 01/01/21 16:40 20:20 04:00 WBC RBC Hgb Hct MCV MCH MCHC RDW Std Deviation RDW Coeff of Ana Plt Count MPV Immature Gran % (Auto) Neut % (Auto) Lymph % (Auto) [place] % (Auto) Eos % (Auto) Baso % (Auto) Absolute Neuts (auto) Absolute Lymphs (auto) Total Counted Neutrophils % (Manual) Band Neutrophils % Lymphocytes % (Manual) Monocytes % (Manual) Eosinophils % (Manual) Basophils % (Manual) Metamyelocytes % Myelocytes % Nucleated RBC % Nucleated RBCs/100 WBC Diff Path Review Reactive Lymphocytes Platelet Estimate RBC Morphology PT INR APTT Specimen Type Sample Site pH Bicarbonate Actual Total CO2 Base Excess O2 Saturation O2 % ABG pCO2 ABG pO2 Respiration Rate O2 Delivery Device Vent Mode Tidal Volume POC PEEP Sodium 141 Potassium 4.4 Chloride 106 Carbon Dioxide 22.0 Anion Gap 13 BUN 21 H Creatinine 1.55 H Estim Creat Clear Calc 38.33 Est GFR (MDRD) Af Amer 46 L Est GFR (MDRD) Non-Af 38 L BUN/Creatinine Ratio 13.5 Glucose 498 H* Lactic Acid 5.2 H* Calcium 7.7 L Phosphorus Magnesium Total Bilirubin 0.90 Direct Bilirubin AST 292 H ALT 124 H Alkaline Phosphatase 288 H Total Creatine Kinase Troponin I 68.600 H* Total Protein 5.4 L Albumin 2.4 L Globulin 3.0 Albumin/Globulin Ratio 0.8 L Triglycerides TSH 2.79 Serum , Qual Urine Color Urine Clarity Urine pH Ur Specific [place] Urine Protein Urine Glucose (UA) Urine Ketones Urine Occult Blood Urine Nitrite Urine Bilirubin Urine Urobilinogen Ur Leukocyte Esterase Urine RBC Urine WBC Ur Squamous Epith Cells Urine Bacteria Urine Mucus MRSA (PCR) Negative 01/01/21 Unknown WBC 23.6 H RBC 3.26 L Hgb 10.1 L Hct 30.4 L MCV 93.3 MCH 31.0 MCHC 33.2 RDW Std Deviation 42.2 RDW Coeff of Ana 12.4 Plt Count 230 MPV 9.6 Immature Gran % (Auto) 0.900 Neut % (Auto) 90.2 H Lymph % (Auto) 3.6 L [place] % (Auto) 5.1 Eos % (Auto) 0.0 Baso % (Auto) 0.2 Absolute Neuts (auto) 21.3 H Absolute Lymphs (auto) 0.85 Total Counted Neutrophils % (Manual) Band Neutrophils % Lymphocytes % (Manual) Monocytes % (Manual) Eosinophils % (Manual) Basophils % (Manual) Metamyelocytes % Myelocytes % Nucleated RBC % 0 Nucleated RBCs/100 WBC Diff Path Review Reactive Lymphocytes Platelet Estimate RBC Morphology PT INR APTT Specimen Type Sample Site pH Bicarbonate Actual Total CO2 Base Excess O2 Saturation O2 % ABG pCO2 ABG pO2 Respiration Rate O2 Delivery Device Vent Mode Tidal Volume POC PEEP Sodium Potassium Chloride Carbon Dioxide Anion Gap BUN Creatinine Estim Creat Clear Calc Est GFR (MDRD) Af Amer Est GFR (MDRD) Non-Af BUN/Creatinine Ratio Glucose Lactic Acid Calcium Phosphorus Magnesium Total Bilirubin Direct Bilirubin AST ALT Alkaline Phosphatase Total Creatine Kinase Troponin I Total Protein Albumin Globulin Albumin/Globulin Ratio Triglycerides TSH Serum , Qual Urine Color Urine Clarity Urine pH Ur Specific [place] Urine Protein Urine Glucose (UA) Urine Ketones Urine Occult Blood Urine Nitrite Urine Bilirubin Urine Urobilinogen Ur Leukocyte Esterase Urine RBC Urine WBC Ur Squamous Epith Cells Urine Bacteria Urine Mucus MRSA (PCR) Microbiology 12/31/20 22:40 Mucosa - Nasopharyngeal Respiratory Panel (PCR) - Final 12/31/20 16:40 Urine Catheter - De Jesus Legionella Antigen - Final 12/31/20 16:40 Urine Catheter - De Jesus Streptococcus pneumoniae Antigen (M - Final Clinical Impression(s) from Imaging Studies Chest X-Ray 12/31/20 16:25 IMPRESSION: 1. Interval placement of endotracheal tube with tip approximately 3 7 m above the kenisha. 2. Interval placement of nasogastric tube with the tip below the diaphragm. 3. Right-sided pneumonia. Electronically Signed: Akash James MD at 17:23 EST Tel , Service support , KUB X-Ray 12/31/20 18:25 IMPRESSION: Nasogastric tube is coiled in the fundus of the stomach. Electronically Signed: Dariel Eid MD at 19:19 EST , Service support , Chest X-Ray 12/31/20 20:00 Current Medications Acetaminophen (Acetaminophen 325 Mg Tablet) 650 mg PO Q6H PRN PRN PRN Reason: Pain Score 1-10/Temp > 100.7 F Albuterol/Ipratropium (Ipratropium/Albuterol Sulfate 3 Ml Ampul.Neb) 3 ml INHALATION Q4H.RT PRN PRN Reason: wheezing Aspirin (Aspirin E.C. 81 Mg Tablet) 81 mg PO DAILY@0800 [facility] Atorvastatin Calcium (Atorvastatin Calcium 40 Mg Tablet) 40 mg PO QHS [facility] Last Admin: 12/31/20 21:50 Dose: 40 mg Documented by: Atropine Sulfate (Atropine Sulfate 1 Mg/10 Ml Syringe) 0.5 mg IV UD PRN PRN Reason: HR <50 bpm Heparin Sodium (Beef Lung) (Heparin Lock 500 Unit/5 Ml In 10 Ml Syringe) 500 unit IV UD PRN PRN Reason: HEPARIN FLUSH Lactated Ringer's () 1,000 mls @ 75 mls/hr IV .[id number] [facility] Last Admin: 12/31/20 23:53 Dose: 150 mls/hr Documented by: Propofol (Diprivan) 1,000 mg in 100 mls @ 5.352 mls/hr CONT INF .Q12H [facility]; Protocol Last Titration: 01/01/21 05:00 Dose: 10 mcg/kg/min, 5.4 mls/hr Documented by: Fentanyl Citrate 1,000 mcg/ (Sodium Chloride) 100 mls @ 5 mls/hr CONT INF .Q20H [facility]; Protocol Last Admin: 01/01/21 05:10 Dose: 50 mcg/hr, 5 mls/hr Documented by: Sodium Chloride () 250 mls @ 15 mls/hr IV .[id number] PRN PRN Reason: Saline Flush Sodium Chloride () 250 mls @ 15 mls/hr IV .[id number] PRN PRN Reason: Additional IVPB Infusion Piperacillin Sod/Tazobactam (Sod 3.375 gm/ Sodium Chloride) 50 mls @ 12.5 mls/hr IV Q8 [facility] Last Infusion: 01/01/21 01:00 Dose: Infused Documented by: Vancomycin IV Pharmacy to Dose (1 ea/ Sodium Chloride) 500 mls @ 250 mls/hr IV DAILY PRN; Protocol PRN Reason: RX to dose Norepinephrine Bitartrate 8 mg (/ Sodium Chloride) 250 mls @ 9.375 mls/hr CONT INF .[id number] [facility]; Protocol Last Titration: 01/01/21 05:36 Dose: 5 mcg/min, 9.4 mls/hr Documented by: Vancomycin HCl 750 mg/ Sodium (Chloride) 265 mls @ 250 mls/hr IV Q12H [facility] Insulin Human Lispro (Insulin Lispro 100 Unit/Ml Insuln.Pen) 0 unit SC Q4 [facility]; Protocol Last Admin: 01/01/21 04:59 Dose: 4 units Documented by: Labetalol HCl (Labetalol (Prefilled) 20 Mg/4 Ml) 5 mg IV X1 PRN PRN Reason: SBP >160 when pulling sheath Stop: 01/02/21 15:45 Morphine Sulfate (Morphine 2 Mg/Ml Syringe) 2 mg IV Q3H PRN PRN PRN Reason: Pain Score 6-10 Oxycodone HCl (Oxycodone 5 Mg Tablet) 5 mg PO Q4H PRN PRN PRN Reason: Pain Score 4-5 Prochlorperazine Edisylate (Prochlorperazine 10 Mg/2 Ml Vial) 5 mg IV Q4H PRN PRN PRN Reason: Breakthrough Nausea/Vomiting Sodium Chloride (0.9% Saline Lock 10 Ml Syringe) 10 - 40 ml IV UD PRN PRN Reason: SALINE FLUSH Ticagrelor (Ticagrelor 90 Mg Tablet) 90 mg PO BID [facility] Assessment/Plan Active and Suspected Problems Cardiac arrest (Acute) STEMI (ST elevation myocardial infarction) (Acute) Ventricular fibrillation (Acute) Acute hypoxic respiratory failure (Acute) RECOMMENDATIONS: 1. Continue patient on assist control mode of mechanical ventilation and wean FiO2 to maintain saturations at or above 90%. 2. Continue empiric antimicrobials, pending infectious work-up. 3. Continue Levophed to maintain a mean arterial pressure at or above [address] all forms of sedation on hold to better assess neurological status. 5. Obtain repeat ABG and check ammonia level. 6. Stop continuous supplemental IV fluids. 7. Okay to start tube feeds today from my perspective. 8. Start Protonix for GI prophylaxis. We will start subcu heparin for DVT prophylaxis. IMPRESSIONS: 1. Acute hypoxemic respiratory failure status post cardiac arrest The patient does appear to have multifocal airspace disease in the right hemithorax concerning for possible aspiration in the setting of cardiac arrest. Accordingly, she will be continued on broad-spectrum antimicrobials, pending further infectious work-up. Plan to continue to wean FiO2 and PEEP as tolerated to maintain saturations at or above 90%. The patient will be initiated on tube feeds today. 2. Inferior wall myocardial infarction/STEMI The patient did undergo angioplasty and stenting to her RCA. Ejection fraction was reduced at 35 to 40% per documentation. Accordingly, continuous fluids will be discontinued. Plan to continue supportive measures per cardiology recommendations. 3. Septic shock Clinical concern that the patient may also have a cardiac component to her shock state as well. Nevertheless, I do strongly suspect that she likely has an aspiration pneumonia. As noted above, the patient will be continued on broad- spectrum antimicrobials. Vasopressor support will be continued to maintain a mean arterial pressure at or above 65 mmHg. If Levophed requirements continue to increase, will add vasopressin. 4. Encephalopathy Likely metabolic and/or anoxic in etiology. The patient did have a reported 30- minute downtime prior to return of spontaneous circulation. At this time, I did recommend that all forms of sedation be discontinued to better assess the patient's baseline neurological status. Will obtain arterial blood gas as well and check ammonia level. If there is no interval improvement in her neurological status in the next 24 hours, will need to consider additional work- up including EEG and/or MRI brain. 5. Acute kidney injury Likely prerenal in etiology with likely a component of ischemic ATN due to hemodynamic instability in the setting of the patient's acute presentation. The patient will remain on vasopressor support in an attempt to maintain hemodynamic stability. We will continue to monitor urine output for now. There is no current indication for renal replacement therapy. 6. Elevated transaminases Unclear baseline levels. The mild elevations could also represent an acute reaction to the patient's cardiac arrest and subsequent hemodynamic instability. We will continue to monitor accordingly. 7. Diabetes mellitus Start Lantus and sliding scale insulin coverage. TIME: 40 minutes of critical care time, independent of procedures, was spent addressing the patient's acute hypoxemic respiratory failure, status post cardiac arrest, septic shock, encephalopathy, acute kidney injury, review of all data and collaboration with the care team. [id number]) [id number] Critical care first hour
--- NOTE | 2021-01-01 07:19 | PCM.PN.HOSP ---
Patient Problems: Active and Suspected Problems Cardiac arrest (Acute) STEMI (ST elevation myocardial infarction) (Acute) Ventricular fibrillation (Acute) Acute hypoxic respiratory failure (Acute) Reason for Visit: Acute ST segment elevation [place] Subjective: Patient is a 50-year-old lady who had a cardiac arrest found to be in V. fib resuscitated using ACLS protocol brought to the emergency department EKG demonstrated inferior ST segment elevation VT patient underwent emergency left catheterization which revealed a 99% stenosis of an RCA lesion which was treated with PCI/JOSE J. She was also found to have a 70 to 80% stenosis in the proximal and mid LAD ejection fraction found to be 35 to 40% Objective: GENERAL: on the vent without sedation HEENT: Atraumatic; EYES; Anicteric, Normal Conjunctiva NECK; supple, normal thyroid, RESPIRATORY: Diminished to auscultation CARDIOVASCULAR: Regular S1 S2, GI: soft, normoactive bowel sounds, : No Renal angle tenderness; EXTREMITIES: No edema, no clubbing, MUSCULOSKELETAL: no muscle waisting NEURO:Unresponsive on the vent without sedation SKIN: No Rash Vitals/I&O's: Vital Signs Temp Pulse Resp BP Pulse Ox 100.2 F H 132 H 21 H 111/63 97 01/01/21 06:45 01/01/21 07:00 01/01/21 07:00 01/01/21 06:45 01/01/21 07:00 Oxygen Delivery Method Mechanical Ventilator Weight: 65.7 kg Body Mass Index (BMI) 32.8 Intake and Output for Last 24 Hours 12/30/20 12/31/20 01/01/21 23:59 23:59 23:59 Intake Total 4938.52 / 4993.63 1091.88 / 1091.88 Output Total 295 / 395 910 / 910 Balance 4643.52 / 4598.63 181.88 / 181.88 Microbiology Past 72 Hours 12/31/20 22:40 Mucosa - Nasopharyngeal Respiratory Panel (PCR) - Final 12/31/20 16:40 Urine Catheter - De Jesus Legionella Antigen - Final 12/31/20 16:40 Urine Catheter - De Jesus Streptococcus pneumoniae Antigen (M - Final Laboratory Results 12/31/20 14:20: WBC 9.8, RBC 3.99 L, Hgb 11.9 L, Hct 39.3, MCV 98.5, MCH 29.8, MCHC 30.3 L, RDW Std Deviation 44.4 H, RDW Coeff of Ana 12.1, Plt Count 108 L, MPV 11.0, Neut % (Auto) Not Reportable, Absolute Neuts (auto) 2.2, Absolute Lymphs (auto) 6.39 H, Total Counted 100, Neutrophils % (Manual) 14 L, Band Neutrophils % 8 H, Lymphocytes % (Manual) 65 H, Monocytes % (Manual) 4, Eosinophils % (Manual) 5, Basophils % (Manual) 1, Metamyelocytes % 1, Myelocytes % 2 H, Nucleated RBCs/100 WBC 1, Diff Path Review March, Reactive Lymphocytes 1+, Platelet Estimate SLT DEC, RBC Morphology NORM C+C 12/31/20 14:20: Sodium Cancelled, Potassium Cancelled, Chloride Cancelled, Carbon Dioxide Cancelled, Anion Gap Cancelled, BUN Cancelled, Creatinine Cancelled, Estim Creat Clear Calc Cancelled, Est GFR (MDRD) Af Amer Cancelled, Est GFR (MDRD) Non-Af Cancelled, BUN/Creatinine Ratio Cancelled, Glucose Cancelled, Calcium Cancelled, Troponin I Cancelled 12/31/20 14:20: PT Cancelled, INR Cancelled, APTT Cancelled 12/31/20 15:10: Lactic Acid 11.1 H* 12/31/20 15:10: PT Cancelled, INR Cancelled, APTT Cancelled 12/31/20 15:10: Sodium 144, Potassium 2.6 L*, Chloride 105, Carbon Dioxide 23.0, Anion Gap 16 H, BUN 11, Creatinine 1.31 H, Estim Creat Clear Calc 47.26, Est GFR (MDRD) Af Amer 56 L, Est GFR (MDRD) Non-Af 46 L, BUN/Creatinine Ratio 8.4 L, Glucose 438 H, Calcium 6.6 L, Troponin I 3.870 H* 12/31/20 16:08: Specimen Type ART, Sample Site Art Line, pH 7.35, Bicarbonate Actual 25.7, Total CO2 27, Base Excess 0, O2 Saturation 100 H, O2 % 100, ABG pCO2 46.8 H, ABG pO2 230 H, Respiration Rate 24, O2 Delivery Device Adult Vent, Vent Mode AC, Tidal Volume 450, POC PEEP 5 12/31/20 16:35: PT 16.7 H, INR 1.4, APTT > 250.0 H* 12/31/20 16:35: WBC 22.6 H, RBC 3.75 L, Hgb 11.6 L, Hct 34.5 L, MCV 92.0 D, MCH 30.9, MCHC 33.6 D, RDW Std Deviation 41.2, RDW Coeff of Ana 12.2, Plt Count 290, MPV 9.4 12/31/20 16:35: PT Cancelled, INR Cancelled 12/31/20 16:35: Magnesium 1.8 12/31/20 16:35: Serum , Qual NEGATIVE 12/31/20 16:35: Total Creatine Kinase 1504 H, Triglycerides 59 12/31/20 16:35: Phosphorus 4.4, Total Bilirubin 0.50, Direct Bilirubin 0.11, AST 387 H, ALT 161 H, Alkaline Phosphatase 419 H, Total Protein 6.0 L, Albumin 2.7 L, Globulin 3.3 12/31/20 16:40: Urine Color Yellow, Urine Clarity Sl. Cloudy, Urine pH 5.0, Ur Specific [place] 1.010, Urine Protein 100 H, Urine Glucose (UA) 1000 H, Urine Ketones Negative, Urine Occult Blood 250 H, Urine Nitrite Negative, Urine Bilirubin Negative, Urine Urobilinogen Normal, Ur Leukocyte Esterase 25 H, Urine RBC 5-10 SEEN, Urine WBC 0-5 SEEN, Ur Squamous Epith Cells 0 SEEN, Urine Bacteria RARE, Urine Mucus 0 SEEN 12/31/20 16:40: MRSA (PCR) Negative 12/31/20 20:20: Lactic Acid 5.2 H* 01/01/21 04:00: Sodium 141, Potassium 4.4, Chloride 106, Carbon Dioxide 22.0, Anion Gap 13, BUN 21 H, Creatinine 1.55 H, Estim Creat Clear Calc 38.33, Est GFR (MDRD) Af Amer 46 L, Est GFR (MDRD) Non-Af 38 L, BUN/Creatinine Ratio 13.5, Glucose 498 H*, Calcium 7.7 L, Total Bilirubin 0.90, AST 292 H, ALT 124 H, Alkaline Phosphatase 288 H, Troponin I 68.600 H*, Total Protein 5.4 L, Albumin 2.4 L, Globulin 3.0, Albumin/Globulin Ratio 0.8 L, TSH 2.79 01/01/21 : WBC 23.6 H, RBC 3.26 L, Hgb 10.1 L, Hct 30.4 L, MCV 93.3, MCH 31.0, MCHC 33.2, RDW Std Deviation 42.2, RDW Coeff of Ana 12.4, Plt Count 230, MPV 9.6, Immature Gran % (Auto) 0.900, Neut % (Auto) 90.2 H, Lymph % (Auto) 3.6 L, Ashley % (Auto) 5.1, Eos % (Auto) 0.0, Baso % (Auto) 0.2, Absolute Neuts (auto) 21.3 H, Absolute Lymphs (auto) 0.85, Nucleated RBC % 0 Current Medications Acetaminophen (Acetaminophen 325 Mg Tablet) 650 mg PO Q6H PRN PRN PRN Reason: Pain Score 1-10/Temp > 100.7 F Albuterol/Ipratropium (Ipratropium/Albuterol Sulfate 3 Ml Ampul.Neb) 3 ml INHALATION Q4H.RT PRN PRN Reason: wheezing Aspirin (Aspirin E.C. 81 Mg Tablet) 81 mg PO DAILY@0800 [facility] Atorvastatin Calcium (Atorvastatin Calcium 40 Mg Tablet) 40 mg PO QHS [facility] Last Admin: 12/31/20 21:50 Dose: 40 mg Documented by: Atropine Sulfate (Atropine Sulfate 1 Mg/10 Ml Syringe) 0.5 mg IV UD PRN PRN Reason: HR <50 bpm Heparin Sodium (Beef Lung) (Heparin Lock 500 Unit/5 Ml In 10 Ml Syringe) 500 unit IV UD PRN PRN Reason: HEPARIN FLUSH Propofol (Diprivan) 1,000 mg in 100 mls @ 5.352 mls/hr CONT INF .Q12H [facility]; Protocol Last Titration: 01/01/21 06:00 Dose: 0 mcg/kg/min, 0 mls/hr Documented by: Fentanyl Citrate 1,000 mcg/ (Sodium Chloride) 100 mls @ 5 mls/hr CONT INF .Q20H [facility]; Protocol Last Titration: 01/01/21 06:00 Dose: 0 mcg/hr, 0 mls/hr Documented by: Sodium Chloride () 250 mls @ 15 mls/hr IV .[id number] PRN PRN Reason: Saline Flush Sodium Chloride () 250 mls @ 15 mls/hr IV .[id number] PRN PRN Reason: Additional IVPB Infusion Piperacillin Sod/Tazobactam (Sod 3.375 gm/ Sodium Chloride) 50 mls @ 12.5 mls/hr IV Q8 [facility] Last Admin: 01/01/21 06:18 Dose: 12.5 mls/hr Documented by: Vancomycin IV Pharmacy to Dose (1 ea/ Sodium Chloride) 500 mls @ 250 mls/hr IV DAILY PRN; Protocol PRN Reason: RX to dose Norepinephrine Bitartrate 8 mg (/ Sodium Chloride) 250 mls @ 9.375 mls/hr CONT INF .[id number] [facility]; Protocol Last Titration: 01/01/21 07:00 Dose: 10 mcg/min, 18.8 mls/hr Documented by: Vancomycin HCl 750 mg/ Sodium (Chloride) 265 mls @ 250 mls/hr IV Q12H [facility] Insulin Human Lispro (Insulin Lispro 100 Unit/Ml Insuln.Pen) 0 unit SC Q4 [facility]; Protocol Last Admin: 01/01/21 04:59 Dose: 4 units Documented by: Labetalol HCl (Labetalol (Prefilled) 20 Mg/4 Ml) 5 mg IV X1 PRN PRN Reason: SBP >160 when pulling sheath Stop: 01/02/21 15:45 Prochlorperazine Edisylate (Prochlorperazine 10 Mg/2 Ml Vial) 5 mg IV Q4H PRN PRN PRN Reason: Breakthrough Nausea/Vomiting Sodium Chloride (0.9% Saline Lock 10 Ml Syringe) 10 - 40 ml IV UD PRN PRN Reason: SALINE FLUSH Ticagrelor (Ticagrelor 90 Mg Tablet) 90 mg PO BID [facility] STROKE Vital Signs/Narrative: Vital Signs Temp Pulse Resp BP Pulse Ox 01/01/21 07:00 132 H 21 H 97 01/01/21 06:45 100.2 F H 134 H 21 H 111/63 95 01/01/21 06:00 100.2 F H 125 H 18 99/57 L 95 01/01/21 05:00 99.9 F H 124 H 12 105/53 L 95 01/01/21 04:41 128 H 21 H 94 01/01/21 04:00 100.1 F H 126 H 17 113/55 L 98 Medical Necessity - Tobacco Use Smoking Status: Unknown if ever smoked Assessment/Plan All Active Problems History of coronary artery stent placement (Acute ~12/31/20) Cardiac arrest (Acute) STEMI (ST elevation myocardial infarction) (Acute) Ventricular fibrillation (Acute) Acute hypoxic respiratory failure (Acute) Patient is a 50-year-old lady who had a cardiac arrest found to be in V. fib resuscitated using ACLS protocol brought to the emergency department EKG demonstrated inferior ST segment elevation [place] patient underwent emergency left catheterization which revealed a 99% stenosis of an RCA lesion which was treated with PCI/JOSE J. She was also found to have a 70 to 80% stenosis in the proximal and mid LAD ejection fraction found to be 35 to 40% 1. Acute inferior ST segment elevation [place] -Patient presented with cardiac arrest found to be in V. fib resuscitated using ACLS protocol brought to the emergency department EKG demonstrated inferior ST segment elevation [place] patient underwent emergency left catheterization which revealed a 99% stenosis of an RCA lesion which was treated with PCI/JOSE J. She was also found to have a 70 to 80% stenosis in the proximal and mid LAD ejection fraction found to be 35 to 40% 2. Cardiopulmonary arrest -Successfully resuscitated using ACLS protocol with ROSC 3. Acute hypoxic respiratory failure -Following cardiopulmonary arrest and acute inferior ST [place]. Patient was intubated admitted to the intensive care unit management deferred to biological technical officer 4. Cardiogenic shock -Patient is on Levophed and vasopressin 5. Acute kidney injury ?Following hypotension after patient's acute ST segment elevation [place] 6. Acute transaminitis -Secondary to shock liver following patient cardiopulmonary arrest 7. Diabetes mellitus type II -Placed on long acting insulin, Accu-Cheks a.c. and at bedtime and covered with sliding scale insulin 8. DVT prophylaxis ?Lovenox Inpatient E&M: [id number] [facility] L3
[2021-01-01 07:25] LABS: Blood Gas Specimen Type VEN; O2 Delivery Device Adult Vent; PEEP 5; SITE R Brach; VBG BASE EXCESS -9 mmol/L (-1.0-3.5); VBG Bicarbonate 16 mmol/L (22-26); VBG PO2 66 mmHg (25-40); VBG SO2 94 % (50-70); VBG TCO2 16 mmol/L (23-33); VBG pH 7.44 (7.32-7.42)
[2021-01-01 08:00] LABS: Base Excess -2 mmol/L (-2 to +2); Bicarbonate 26.5 mmol/L (22-26); Blood Gas Specimen Type ART; PO2 106 mmHG (75-100); SO2 96 % (95-99); Total Carbon Dioxide 29 mmol/L; pCO2 75.3 mmHg (35-45); pH 7.16 (7.35-7.45)
[2021-01-01] MEDS: Chlorhexidine 15 ML PO ×2 (09:34→21:12)
[2021-01-01 09:56] LABS: Bedside Glucose > 500 mg/dL (70-110)
--- NOTE | 2021-01-01 10:00 | EKG12_ITS ---
Test Reason : POST STEMI Blood Pressure : / mmHG Vent. Rate : 129 BPM Atrial Rate : 129 BPM P-R Int : 124 ms QRS Dur : 098 ms QT Int : 404 ms P-R-T Axes : 068 068 080 degrees QTc Int : 591 ms AGE AND GENDER SPECIFIC ECG ANALYSIS Sinus tachycardia with Premature supraventricular complexes ST elevation consider inferior injury or acute infarct * ACUTE CA Abnormal ECG When compared with ECG of 31-DEC-2020 14:17, MANUAL COMPARISON REQUIRED, DATA IS UNCONFIRMED Confirmed by MEGAN BARRAGAN, ZACHARIAH ([id number]), newspaper editor managing GAUDENCIO HERZOG ([id number]) on 01/03/2021 8:52:56 AM Referred By: Rob Gracia Confirmed By:GARY GUZMAN MD
--- NOTE | 2021-01-01 10:05 | CASEMGMT ---
Social Work SW placed phone call to pt daughter Lian Alston to determine pt medical decision maker. Dgt states pt is not and has one child which is Lian. Dgt confirms that she is over the age of 18. SW inquired about HCPOA and dgt states she is uncertain if her mother has completed a HCPOA and has not gone to pt home to go though her things and look for it. Dgt also states that pt has multiple sisters that live near by and are supportive to dgt. Pt was independent prior to hospitalization. 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 Dgt states pt has DM type I but otherwise has been healthy. Dgt Lian is agreeable to be pt decision maker at this time and has support of pt sisters. SW informed dgt that SW will remain available for support of family. Nursing updated. Further assessment deferred at this time due to pt condition. NELY Ga
[2021-01-01] MEDS: TICAGRELOR 90 MG TABLET GT ×2 (10:30→21:12)
[2021-01-01] MEDS: Aspirin 81 MG TAB.CHEW GT (10:30)
[2021-01-01] MEDS: Acetaminophen 325 MG Tablet 650 MG PO (11:20)
--- NOTE | 2021-01-01 11:31 | CL.I_ITS ---
Patient Name: TERRY FRANCO Study Date: 12/31/2020 Performing: Chioma Tarango MD Ht: inches cm : 1970 Wt: 196.5 lbs 89 kg Age: 50 Gender: female BSA: PROCEDURE(S) PERFORMED [id number]-LDN/COR/LV FL65-FSG, JOSE J AND/OR PTCA, ARTERY OR GRAFT, SINGLE VESSEL CLINICAL PROFILE AND CO-MORBIDITIES Indications: ACS <= 24 hrs Heart Failure: None Stress/Imaging Stress/Image Study Performed: No CAD Presentations: STEMI. Symptom onset Date/Time: 12/31/20 Time 13:30 Other: V fib cardiac arrest CONCLUSIONS CAD as described. EF is 35-40%. No significant or MR. Successful PCI of mRCA with JOSE J. RECOMMENDATIONS Admit to the ICU for further management of STEMI complicated by cardiac arrest. Dual antiplatelet the rapy for 1 year. Consider PCI of LAD in 1 month depending on the clinical situation DESCRIPTION OF PROCEDURE The patient arrived to the procedure lab. The risks and benefits of the procedure as well as a full d escription of our services here and current unavailability of surgical backup were fully explained to the patient and/or their significant other prior to the catheterization. The Timeout was completed, verifying the correct patient and procedure. The patient's procedural site was prepped and draped in the usual fashion. Local anesthetic was given subcutaneously to right radial region with Lidocaine 2% . Using a modified Seldinger technique, arterial access was obtained via the right femoral artery, a 6Fr sheath was inserted.. Right Coronary Artery selective angiography was then performed in multiple views using a 6 Fr.. Left Coronary Artery selective angiography was performed in multiple views using a 5 Fr. 4.0 Hamlin catheter. Left Ventriculography was performed in ARAIZA projection using a 5 Fr. Pigt ail catheter. LV to AO pullback pressures were then recorded JR 4 Guide catheter was inserted and engaged into the RCA. [employer] [place] Guide wire was advanced to the RCA. Emerge 2.5 x 15 Balloon catheter was inserted. Balloon catheter was advanced across lesio n in the right coronary, mid. PTCA balloon inflated at 4 atms for 10 secs. Drug Eluting stent was adv anced across the lesion in the right coronary, mid. Angiogram performed pre stent deployment. Synergy 3.0 x 20 Drug Eluting stent was inserted. Angiogram performed post stent deployment. The arterial s jamilah was sutured in place with heparinized normal saline under pressure INTERVENTION INFORMATION LESION SITE: RCA (Mid) Lesion Complexity: High/C, chronic total occlusion: No, lesion at bifurcation: No, thrombus present: Yes, lesion length: 15 mm, culprit lesion: Yes, Previously treated lesion: No Pre Stenosis: 99 % Pre intervention MILI flow: 2 PROCEDURE: Drug Eluting Stent with pre dilatation. Post Stenosis: 0 % Post intervention MILI flow: 3 Lesion Devices: Medtronic 6 Fr JR4.0 100cm Guide Catheter Vaughn .014 [employer] [place] Straight 190cm Kavin Sci EMERGE MR 2.50x15 BALLOON Kavin Sci Synergy MR JOSE J 3.00x20 COMPLICATIONS No Complications PROCEDURE MEDICATIONS Oxygen: % FiO2 via ventilator. See Resp Record for Settings Atropine 1mg/10ml 1 amp @ 12/31/2020 14:54:53 Epinephrine 1mg/10ml 1 amp 12/31/2020 14:54:53 Heparin 6000 unit(s) IV 12/31/2020 14:47:16 Sodium Bicarbonate 50meq/50ml 1 amp 12/31/2020 14:44:33 IV Bolus: .9 NaCl 1800 ml total 12/31/2020 15:43:56 SUMMARY OF HEMODYNAMIC DATA Time AIR REST ECG 14:42:18 AO 63/49 (57) SA 14:48:55 AO 188/105 (143) 15:02:05 AO 139/79 (107) 15:04:50 LV 87/20, 25 15:11:27 LV 83/19, 25 15:11:33 LV 85/19, 25 15:12:37 LVp 86/17, 25 15:12:43 AOp 83/60 (71) 15:12:48 Signed By Chioma Tarango MD On 01/01/2021 11:50:55 AM Chioma Tarango MD
--- NOTE | 2021-01-01 12:19 | PCM.NTREPORT ---
Nutrition Therapy Report - History Nutrition Services has been consulted to:: Manage nutrient details of diet order Current diet / nutrition support order:: NPO - Anthropometric Measurements Height:: 5 ft 4.96 in Weight:: 65.7 kg Body Mass Index (BMI):: 24.1 - Relevant Labs Relevant Labs:: WBC 23.6 K/mm3 (4.4-11.0) H 01/01/21 Unknown RBC 3.26 M/mm3 (4.2-5.4) L 01/01/21 Unknown Hgb 10.1 g/dL (12.0-15.0) L 01/01/21 Unknown Hct 30.4 % (37-47) L 01/01/21 Unknown MCHC 30.3 g/dL (32-36) L 12/31/20 14:20 RDW Std Deviation 44.4 fl (35.1-43.9) H 12/31/20 14:20 Plt Count 108 K/mm3 (150-450) L 12/31/20 14:20 Neut % (Auto) 90.2 % (47-70) H 01/01/21 Unknown Lymph % (Auto) 3.6 % (19-41) L 01/01/21 Unknown Absolute Neuts (auto) 21.3 X10^3/uL (2.0-7.7) H 01/01/21 Unknown Absolute Lymphs (auto) 6.39 X10^3/uL (0.83-4.51) H 12/31/20 14:20 Neutrophils % (Manual) 14 % (47-70) L 12/31/20 14:20 Band Neutrophils % 8 % (0-5) H 12/31/20 14:20 Lymphocytes % (Manual) 65 % (19-41) H 12/31/20 14:20 Myelocytes % 2 (0-0) H 12/31/20 14:20 PT 16.7 SECONDS (11.7-14.9) H 12/31/20 16:35 APTT > 250.0 Seconds (24.1-36.2) H* 12/31/20 16:35 Potassium 2.6 mmol/L (3.5-5.1) L* 12/31/20 15:10 Anion Gap 16 (5-15) H 12/31/20 15:10 BUN 21 mg/dL (7-18) H 01/01/21 04:00 Creatinine 1.55 mg/dL (0.55-1.02) H 01/01/21 04:00 Est GFR (MDRD) Af Amer 46 mL/min (>60) L 01/01/21 04:00 Est GFR (MDRD) Non-Af 38 mL/min (>60) L 01/01/21 04:00 BUN/Creatinine Ratio 8.4 RATIO (10-20) L 12/31/20 15:10 Glucose 498 mg/dL (74-106) H* 01/01/21 04:00 Lactic Acid 5.2 mmol/L (0.4-1.9) H* 12/31/20 20:20 Calcium 7.7 mg/dL (8.5-10.1) L 01/01/21 04:00 AST 292 U/L (15-37) H 01/01/21 04:00 ALT 124 U/L (13-56) H 01/01/21 04:00 Alkaline Phosphatase 288 U/L (45-117) H 01/01/21 04:00 Total Creatine Kinase 1504 U/L (26-192) H 12/31/20 16:35 Troponin I 68.600 ng/mL (<0.045) H* 01/01/21 04:00 Total Protein 5.4 g/dL (6.4-8.2) L 01/01/21 04:00 Albumin 2.4 g/dL (3.2-5.0) L 01/01/21 04:00 Albumin/Globulin Ratio 0.8 RATIO (0.9-2.4) L 01/01/21 04:00 - Assessment Food / Nutrition-Related History:: Information gathered from care team during ICU rounds and EMR. Currently intubated w/ OGT in place. No wt hx available, pt appears adequately nourished. Per rounds, okay to initiate nutrition support via OGT. - Nutrition Diagnosis Problem / Etiology / Signs & Symptoms (PES):: Inadequate oral intake related to increased nutrient needs d/t cardiac arrest, mechanical intubation as evidenced by NPO status Evidence of Malnutrition Exists:: No - Nutrition Intervention Nutrition Prescription:: [id number] calories/day (1.3xRMR). 90-100 g protein/day (1.5g/kg). 1800mL fluid/day (1mL/calorie) - Food / Nutrient Delivery Interventions Summary of nutrition intervention:: Will order enteral nutrition. Nutrition support ordered as / adjusted to:: Vital AF 1.2 via OGT at goal rate of 60mL/hour w/ 100mL H2O flush every 4 hours to provide 1728 calories, 108 g protein, and 1767mL total fluid/day. Start at 15mL/hour and increase by 15mL every 12 hours as pt tolerates until goal rate achieved. - MNT Monitoring Further MNT monitoring and evaluation required?: Yes MNT Follow-up in:: 1-2 days
[2021-01-01 13:32] LABS: Pathologist Review Reviewed
[2021-01-01] MEDS: Heparin Injection (Vial) 5,000 UNIT/ML VIAL 5000 UNIT SC ×2 (13:53→21:12)
[2021-01-01 13:55] LABS: Bedside Glucose > 500 mg/dL (70-110)
[2021-01-01] MEDS: Vital AF 1.2 Cal Liquid 1,000 ML 15 ML GT (15:09)
[2021-01-01 15:36] LABS: Bedside Glucose > 500 mg/dL (70-110)
--- NOTE | 2021-01-01 15:45 | EKG12_ITS ---
Test Reason : AM EKG Blood Pressure : / mmHG Vent. Rate : 123 BPM Atrial Rate : 123 BPM P-R Int : 116 ms QRS Dur : 070 ms QT Int : 366 ms P-R-T Axes : 060 043 067 degrees QTc Int : 523 ms Sinus tachycardia Otherwise normal ECG When compared with ECG of 31-DEC-2020 15:49, MANUAL COMPARISON REQUIRED, DATA IS UNCONFIRMED Confirmed by MEGAN BARRAGAN, ZACHARIAH ([id number]), editorial clerk GAUDENCIO HERZOG ([id number]) on 01/03/2021 8:51:59 AM Referred By: Rob Gracia Confirmed By:GARY GUZMAN MD
--- NOTE | 2021-01-01 16:13 | PCM.PN.CARD ---
Subjectve: Patient is intubated, not sedated. She is not arousable even to painful stimuli. Objective: Vital Signs Temp Pulse Resp BP Pulse Ox 99.6 F H 147 H 23 H 93/73 96 01/01/21 15:00 01/01/21 16:00 01/01/21 16:00 01/01/21 16:00 01/01/21 16:00 Oxygen Delivery Method Mechanical Ventilator Weight: 144 lb 13.499 oz Body Mass Index (BMI) 24.1 Finger Stick Blood Glucose 581 Intake and Output for Last 24 Hours 12/30/20 12/31/20 01/01/21 23:59 23:59 23:59 Intake Total 4938.52 / 4993.63 1841.47 / 1841.47 Output Total 295 / 395 1210 / 1210 Balance 4643.52 / 4598.63 631.47 / 631.47 General: - - Patient is not arousable to painful stimuli. Lungs: Clear to auscultation Cardiovascular: Regular Rhythm Extremities: No edema Skin: No Rashes 12/31/20 15:06: pH 7.16 L*, Bicarbonate Actual 26.5 H, Base Excess -2, O2 Saturation 96, ABG pCO2 75.3 H*, ABG pO2 106 H 12/31/20 16:08: pH 7.35, Bicarbonate Actual 25.7, Base Excess 0, O2 Saturation 100 H, ABG pCO2 46.8 H, ABG pO2 230 H 12/31/20 16:35: PT 16.7 H, INR 1.4, APTT > 250.0 H* 12/31/20 16:35: WBC 22.6 H, RBC 3.75 L, Hgb 11.6 L, Hct 34.5 L, MCV 92.0 D, MCH 30.9, MCHC 33.6 D, Plt Count 290, MPV 9.4 12/31/20 16:35: PT Cancelled, INR Cancelled 12/31/20 16:35: Magnesium 1.8 12/31/20 16:35: Triglycerides 59 12/31/20 16:35: Phosphorus 4.4, Total Bilirubin 0.50, Direct Bilirubin 0.11 12/31/20 16:40: Urine Color Yellow, Urine Clarity Sl. Cloudy, Urine pH 5.0, Ur Specific [place] 1.010, Urine Protein 100 H, Urine Glucose (UA) 1000 H, Urine Ketones Negative, Urine Occult Blood 250 H, Urine Nitrite Negative, Urine Bilirubin Negative, Urine Urobilinogen Normal, Ur Leukocyte Esterase 25 H, Urine RBC 5-10 SEEN, Urine WBC 0-5 SEEN 12/31/20 20:20: Lactic Acid 5.2 H* 01/01/21 04:00: Sodium 141, Potassium 4.4, Chloride 106, Carbon Dioxide 22.0, Anion Gap 13, BUN 21 H, Creatinine 1.55 H, Est GFR (MDRD) Af Amer 46 L, Est GFR (MDRD) Non-Af 38 L, BUN/Creatinine Ratio 13.5, Glucose 498 H*, Calcium 7.7 L, Total Bilirubin 0.90, Troponin I 68.600 H* 01/01/21 07:18: VBG pH 7.44 H, VBG pO2 66 H, VBG HCO3 16 L, VBG O2 Sat (Calc) 94 H, VBG Base Excess -9 L 01/01/21 : WBC 23.6 H, RBC 3.26 L, Hgb 10.1 L, Hct 30.4 L, MCV 93.3, MCH 31.0, MCHC 33.2, Plt Count 230, MPV 9.6, Immature Gran % (Auto) 0.900, Neut % (Auto) 90.2 H, Lymph % (Auto) 3.6 L, [place] % (Auto) 5.1, Eos % (Auto) 0.0, Baso % (Auto) 0.2, Absolute Neuts (auto) 21.3 H, Nucleated RBC % 0 Rhythm: EKG: ECHO: Stress Test: Cardiac Cath: PCI: CT Surgery: Holter monitor: EPS: PPM: CXR: Chest CT Scan: Medical Necessity - Tobacco Use Smoking Status: Unknown if ever smoked Assessment/Plan 1. Cardiac arrest: Secondary to inferior ST elevation CT. Patient was initially in V. fib and then was in PEA. She underwent PCI to the RCA. She is intubated and currently on 2 pressors. She is not arousable at this time. 2. Inferior ST elevation CT: Patient was treated with JOSE J to the RCA. We will keep her on dual antiplatelet therapy, statin. She is on 2 pressors currently.
[2021-01-01 16:30] LABS: Bedside Glucose 453 mg/dL (70-110)
[2021-01-01 16:35] LABS: Bedside Glucose > 500 mg/dL (70-110)
[2021-01-01 17:36] LABS: Bedside Glucose > 500 mg/dL (70-110)
[2021-01-01 18:35] LABS: Bedside Glucose > 500 mg/dL (70-110)
[2021-01-01] MEDS: Acetaminophen 650 MG/20 ML UDC GT (20:34)
[2021-01-01 20:36] LABS: Bedside Glucose 500 mg/dL (70-110)
[2021-01-01 20:36] LABS: Bedside Glucose 404 mg/dL (70-110)
[2021-01-01] MEDS: Atorvastatin Calcium 40 MG Tablet GT (21:12)
[2021-01-01 23:40] LABS: Bedside Glucose 415 mg/dL (70-110)
[2021-01-01 23:40] LABS: Bedside Glucose 409 mg/dL (70-110)
[2021-01-02] VITALS (64 sets, daily range): BP systolic 71–144; BP diastolic 39–73; PULSE 71–136; RESP 14–169; TEMP 37.1–38.6; O2SAT 92–100
[2021-01-02 00:55] LABS: Bedside Glucose 337 mg/dL (70-110)
[2021-01-02 02:16] LABS: Bedside Glucose 332 mg/dL (70-110)
[2021-01-02 02:16] LABS: Bedside Glucose 364 mg/dL (70-110)
[2021-01-02] MEDS: Acetaminophen 650 MG/20 ML UDC GT ×2 (02:56→09:45)
[2021-01-02 04:29] LABS: Absolute Lymphocyte Count 1.34 X10^3/uL (0.83-4.51); Absolute Neutrophil Count 20.8 X10^3/uL (2.0-7.7); Basophil# 0.07 X10^3/uL; Basophil% 0.3 % (0-1); Eosinophil# 1.12 X10^3/uL; Eosinophils% 4.5 % (0-5); Hematocrit 25.9 % (37-47); Hemoglobin 8.7 g/dL (12.0-15.0); Lymphocyte # 1.34 X10^3/ul (4.0); Lymphocyte % 5.3 % (19-41); Mean Corp Hgb Conc 33.6 g/dL (32-36); Mean Corpuscular Hgb 31.1 pg (27.0-32.0); Mean Corpuscular Volume 92.5 fL (81-99); Monocyte% 5.6 % (0-10); NRBC Flagged by Analyzer 0 % (0-5); Neutrophil % 82.9 % (47-70); POSITIVE DIFFERENTIAL YES; POSITIVE MORPHOLOGY YES; Platelet Count 199 K/mm3 (150-450); RBC Distribution Width CV 12.8 % (11.6-14.6); RBC Distribution Width SD 43.5 fl (35.1-43.9); White Blood Count 25.1 K/mm3 (4.4-11.0)
[2021-01-02 04:35] LABS: Differential Indicated SCAN CRITERIA MET
[2021-01-02 04:42] LABS: AST(SGOT) 113 U/L (15-37); Alanine Aminotransfer ALT/SGPT 84 U/L (13-56); Albumin, Serum 2.1 g/dL (3.2-5.0); Alkaline Phosphatase 205 U/L (45-117); Anion Gap 6 (5-15); BUN 34 mg/dL (7-18); Bilirubin, Direct 0.21 mg/dL (0.00-0.30); Calcium,Total 8.1 mg/dL (8.5-10.1); Chloride 117 mmol/L (98-107); Creatinine, Serum 2.43 mg/dL (0.55-1.02); EST Glomerular Filtration Rate 23 mL/min (>60); Est Glom Filt Rate - Afr Amer 27 mL/min (>60); Estimated Creatinine Clearance 24.45 ml/min; Globulin 3.3 g/dL (2.2-4.2); Glucose 365 mg/dL (74-106); Magnesium 2.1 mg/dL (1.6-2.6); Potassium 3.4 mmol/L (3.5-5.1); Protein, Total 5.4 g/dL (6.4-8.2); Sodium Level 150 mmol/L (136-145)
[2021-01-02 05:06] LABS: Bedside Glucose 334 mg/dL (70-110)
[2021-01-02 05:06] LABS: Bedside Glucose 366 mg/dL (70-110)
[2021-01-02] MEDS: Heparin Injection (Vial) 5,000 UNIT/ML VIAL 5000 UNIT SC ×3 (05:33→20:01)
[2021-01-02 06:11] LABS: Bedside Glucose 321 mg/dL (70-110)
[2021-01-02 06:11] LABS: Bedside Glucose 322 mg/dL (70-110)
[2021-01-02] MEDS: TITRATION PARAMETER CHANGE 1 EACH IV (06:28)
--- NOTE | 2021-01-02 06:28 | PCM.PN.INT ---
Subjective: The patient was seen and examined at the bedside this morning. Events from the last 24 hours have been reviewed. The patient is currently hemodynamically stable on Levophed at 5 mcg/min. Vasopressin was able to be weaned off completely overnight. The patient did have a fever overnight with a T-max of 102.3 ?F. White blood cell count remains elevated at 25,000. Hemoglobin has dropped from 10.1 to 8.7 g/dL this morning. Sodium is elevated at 150. Chloride is also elevated at 117 with a potassium of 3.4. The patient's creatinine has also worsened to 2.43 this morning. The patient did also have to be started on a continuous insulin infusion yesterday due to persistent hyperglycemia. The patient was noted to have a positive blood culture this morning with gram-negative rods. She remains on broad-spectrum antimicrobials with vancomycin and Zosyn. Ventilator requirements are minimal with an FiO2 of 30% and PEEP of 5. The patient remains off of all forms of sedation, but is still not doing anything purposeful from a neurological perspective. She is currently tolerating tube feeds. The patient is currently documented to be overall net +6.3 L for the hospital admission. Objective: The patient's most recent lab work, culture data and imaging studies have all been personally reviewed. Preliminary blood culture dated December 31 was positive for gram-negative rods. Sputum culture was positive for beta-hemolytic organism. General: - - Remains intubated and mechanically ventilated. No ventilator dyssynchrony noted. HEENT: Atraumatic, Normocephalic, - - Brisk left pupillary response. Oral: No Gingival or Mucosal Lesions/ Ulcerations, - - Stable endotracheal and OG tubes. Neck: Supple, No Nodes, Trachea Midline, - - Stable central venous catheter in place Lungs: No rhonchi, No wheeze, No rales, Diminished Cardiovascular: Normal S1, Normal S2, No murmurs, Tachycardic Abdomen: Bowel Sounds Present, Soft, Non Tender Extremities: No clubbing, No cyanosis, No edema Skin: No breakdown Musculoskeletal: No Tenderness to Palpation of Joints or Extremities, No Muscle Wasting Lymphatic: No Cervical, Supraclavicular, or Inguinal Adenopathy Neurological: - - Neurologically unchanged from previous. Nonresponsive to verbal and tactile stimulation. The patient does have a positive gag and will initiate spontaneous breaths on her own. Vital Signs Temp Pulse Resp BP Pulse Ox 100.7 F H 123 H 18 112/68 95 01/02/21 06:15 01/02/21 06:15 01/02/21 06:15 01/02/21 06:15 01/02/21 06:15 Oxygen Delivery Method Mechanical Ventilator Weight: 151 lb 3.794 oz Body Mass Index (BMI) 24.1 Finger Stick Blood Glucose 322 Intake and Output for Last 24 Hours 12/31/20 01/01/21 01/02/21 23:59 23:59 23:59 Intake Total 4938.52 / 4993.63 3588.09 / 3690.44 545.10 / 545.10 Output Total 295 / 395 2360 / 2360 100 / 100 Balance 4643.52 / 4598.63 1228.09 / 1330.44 445.10 / 445.10 Labs (Last 48 Hours) 12/31/20 12/31/20 12/31/20 14:20 14:20 14:20 WBC 9.8 RBC 3.99 L Hgb 11.9 L Hct 39.3 MCV 98.5 MCH 29.8 MCHC 30.3 L RDW Std Deviation 44.4 H RDW Coeff of Ana 12.1 Plt Count 108 L MPV 11.0 Immature Gran % (Auto) Neut % (Auto) Not Reportable Lymph % (Auto) [place] % (Auto) Eos % (Auto) Baso % (Auto) Absolute Neuts (auto) 2.2 Absolute Lymphs (auto) 6.39 H Total Counted 100 Neutrophils % (Manual) 14 L Band Neutrophils % 8 H Lymphocytes % (Manual) 65 H Monocytes % (Manual) 4 Eosinophils % (Manual) 5 Basophils % (Manual) 1 Metamyelocytes % 1 Myelocytes % 2 H Nucleated RBC % Nucleated RBCs/100 WBC 1 Diff Path Review Reviewed Reactive Lymphocytes 1+ Platelet Estimate SLT DEC RBC Morphology NORM C+C PT Cancelled INR Cancelled APTT Cancelled Specimen Type Sample Site pH Bicarbonate Actual Total CO2 Base Excess O2 Saturation O2 % ABG pCO2 ABG pO2 VBG pH VBG pO2 VBG HCO3 VBG Total CO2 VBG O2 Sat (Calc) VBG Base Excess POC Mix VBG pCO2 Pt Tmp Respiration Rate O2 Delivery Device Vent Mode Tidal Volume POC PEEP Sodium Cancelled Potassium Cancelled Chloride Cancelled Carbon Dioxide Cancelled Anion Gap Cancelled BUN Cancelled Creatinine Cancelled Estim Creat Clear Calc Cancelled Est GFR (MDRD) Af Amer Cancelled Est GFR (MDRD) Non-Af Cancelled BUN/Creatinine Ratio Cancelled Glucose Cancelled Lactic Acid Calcium Cancelled Phosphorus Magnesium Total Bilirubin Direct Bilirubin AST ALT Alkaline Phosphatase Ammonia Total Creatine Kinase Troponin I Cancelled Total Protein Albumin Globulin Albumin/Globulin Ratio Triglycerides TSH Serum , Qual Urine Color Urine Clarity Urine pH Ur Specific [place] Urine Protein Urine Glucose (UA) Urine Ketones Urine Occult Blood Urine Nitrite Urine Bilirubin Urine Urobilinogen Ur Leukocyte Esterase Urine RBC Urine WBC Ur Squamous Epith Cells Urine Bacteria Urine Mucus MRSA (PCR) POC Glucose 12/31/20 12/31/20 12/31/20 15:06 15:10 15:10 WBC RBC Hgb Hct MCV MCH MCHC RDW Std Deviation RDW Coeff of Ana Plt Count MPV Immature Gran % (Auto) Neut % (Auto) Lymph % (Auto) [place] % (Auto) Eos % (Auto) Baso % (Auto) Absolute Neuts (auto) Absolute Lymphs (auto) Total Counted Neutrophils % (Manual) Band Neutrophils % Lymphocytes % (Manual) Monocytes % (Manual) Eosinophils % (Manual) Basophils % (Manual) Metamyelocytes % Myelocytes % Nucleated RBC % Nucleated RBCs/100 WBC Diff Path Review Reactive Lymphocytes Platelet Estimate RBC Morphology PT Cancelled INR Cancelled APTT Cancelled Specimen Type ART Sample Site pH 7.16 L* Bicarbonate Actual 26.5 H Total CO2 29 Base Excess -2 O2 Saturation 96 O2 % ABG pCO2 75.3 H* ABG pO2 106 H VBG pH VBG pO2 VBG HCO3 VBG Total CO2 VBG O2 Sat (Calc) VBG Base Excess POC Mix VBG pCO2 Pt Tmp Respiration Rate O2 Delivery Device Vent Mode Tidal Volume POC PEEP Sodium Potassium Chloride Carbon Dioxide Anion Gap BUN Creatinine Estim Creat Clear Calc Est GFR (MDRD) Af Amer Est GFR (MDRD) Non-Af BUN/Creatinine Ratio Glucose Lactic Acid 11.1 H* Calcium Phosphorus Magnesium Total Bilirubin Direct Bilirubin AST ALT Alkaline Phosphatase Ammonia Total Creatine Kinase Troponin I Total Protein Albumin Globulin Albumin/Globulin Ratio Triglycerides TSH Serum , Qual Urine Color Urine Clarity Urine pH Ur Specific [place] Urine Protein Urine Glucose (UA) Urine Ketones Urine Occult Blood Urine Nitrite Urine Bilirubin Urine Urobilinogen Ur Leukocyte Esterase Urine RBC Urine WBC Ur Squamous Epith Cells Urine Bacteria Urine Mucus MRSA (PCR) POC Glucose 12/31/20 12/31/20 12/31/20 15:10 16:08 16:35 WBC RBC Hgb Hct MCV MCH MCHC RDW Std Deviation RDW Coeff of Ana Plt Count MPV Immature Gran % (Auto) Neut % (Auto) Lymph % (Auto) [place] % (Auto) Eos % (Auto) Baso % (Auto) Absolute Neuts (auto) Absolute Lymphs (auto) Total Counted Neutrophils % (Manual) Band Neutrophils % Lymphocytes % (Manual) Monocytes % (Manual) Eosinophils % (Manual) Basophils % (Manual) Metamyelocytes % Myelocytes % Nucleated RBC % Nucleated RBCs/100 WBC Diff Path Review Reactive Lymphocytes Platelet Estimate RBC Morphology PT 16.7 H INR 1.4 APTT > 250.0 H* Specimen Type ART Sample Site Art Line pH 7.35 Bicarbonate Actual 25.7 Total CO2 27 Base Excess 0 O2 Saturation 100 H O2 % 100 ABG pCO2 46.8 H ABG pO2 230 H VBG pH VBG pO2 VBG HCO3 VBG Total CO2 VBG O2 Sat (Calc) VBG Base Excess POC Mix VBG pCO2 Pt Tmp Respiration Rate 24 O2 Delivery Device Adult Vent Vent Mode AC Tidal Volume 450 POC PEEP 5 Sodium 144 Potassium 2.6 L* Chloride 105 Carbon Dioxide 23.0 Anion Gap 16 H BUN 11 Creatinine 1.31 H Estim Creat Clear Calc 47.26 Est GFR (MDRD) Af Amer 56 L Est GFR (MDRD) Non-Af 46 L BUN/Creatinine Ratio 8.4 L Glucose 438 H Lactic Acid Calcium 6.6 L Phosphorus Magnesium Total Bilirubin Direct Bilirubin AST ALT Alkaline Phosphatase Ammonia Total Creatine Kinase Troponin I 3.870 H* Total Protein Albumin Globulin Albumin/Globulin Ratio Triglycerides TSH Serum , Qual Urine Color Urine Clarity Urine pH Ur Specific [place] Urine Protein Urine Glucose (UA) Urine Ketones Urine Occult Blood Urine Nitrite Urine Bilirubin Urine Urobilinogen Ur Leukocyte Esterase Urine RBC Urine WBC Ur Squamous Epith Cells Urine Bacteria Urine Mucus MRSA (PCR) POC Glucose 12/31/20 12/31/20 12/31/20 16:35 16:35 16:35 WBC 22.6 H RBC 3.75 L Hgb 11.6 L Hct 34.5 L MCV 92.0 D MCH 30.9 MCHC 33.6 D RDW Std Deviation 41.2 RDW Coeff of Ana 12.2 Plt Count 290 MPV 9.4 Immature Gran % (Auto) Neut % (Auto) Lymph % (Auto) [place] % (Auto) Eos % (Auto) Baso % (Auto) Absolute Neuts (auto) Absolute Lymphs (auto) Total Counted Neutrophils % (Manual) Band Neutrophils % Lymphocytes % (Manual) Monocytes % (Manual) Eosinophils % (Manual) Basophils % (Manual) Metamyelocytes % Myelocytes % Nucleated RBC % Nucleated RBCs/100 WBC Diff Path Review Reactive Lymphocytes Platelet Estimate RBC Morphology PT Cancelled INR Cancelled APTT Specimen Type Sample Site pH Bicarbonate Actual Total CO2 Base Excess O2 Saturation O2 % ABG pCO2 ABG pO2 VBG pH VBG pO2 VBG HCO3 VBG Total CO2 VBG O2 Sat (Calc) VBG Base Excess POC Mix VBG pCO2 Pt Tmp Respiration Rate O2 Delivery Device Vent Mode Tidal Volume POC PEEP Sodium Potassium Chloride Carbon Dioxide Anion Gap BUN Creatinine Estim Creat Clear Calc Est GFR (MDRD) Af Amer Est GFR (MDRD) Non-Af BUN/Creatinine Ratio Glucose Lactic Acid Calcium Phosphorus Magnesium 1.8 Total Bilirubin Direct Bilirubin AST ALT Alkaline Phosphatase Ammonia Total Creatine Kinase Troponin I Total Protein Albumin Globulin Albumin/Globulin Ratio Triglycerides TSH Serum , Qual Urine Color Urine Clarity Urine pH Ur Specific [place] Urine Protein Urine Glucose (UA) Urine Ketones Urine Occult Blood Urine Nitrite Urine Bilirubin Urine Urobilinogen Ur Leukocyte Esterase Urine RBC Urine WBC Ur Squamous Epith Cells Urine Bacteria Urine Mucus MRSA (PCR) POC Glucose 12/31/20 12/31/20 12/31/20 16:35 16:35 16:35 WBC RBC Hgb Hct MCV MCH MCHC RDW Std Deviation RDW Coeff of Ana Plt Count MPV Immature Gran % (Auto) Neut % (Auto) Lymph % (Auto) [place] % (Auto) Eos % (Auto) Baso % (Auto) Absolute Neuts (auto) Absolute Lymphs (auto) Total Counted Neutrophils % (Manual) Band Neutrophils % Lymphocytes % (Manual) Monocytes % (Manual) Eosinophils % (Manual) Basophils % (Manual) Metamyelocytes % Myelocytes % Nucleated RBC % Nucleated RBCs/100 WBC Diff Path Review Reactive Lymphocytes Platelet Estimate RBC Morphology PT INR APTT Specimen Type Sample Site pH Bicarbonate Actual Total CO2 Base Excess O2 Saturation O2 % ABG pCO2 ABG pO2 VBG pH VBG pO2 VBG HCO3 VBG Total CO2 VBG O2 Sat (Calc) VBG Base Excess POC Mix VBG pCO2 Pt Tmp Respiration Rate O2 Delivery Device Vent Mode Tidal Volume POC PEEP Sodium Potassium Chloride Carbon Dioxide Anion Gap BUN Creatinine Estim Creat Clear Calc Est GFR (MDRD) Af Amer Est GFR (MDRD) Non-Af BUN/Creatinine Ratio Glucose Lactic Acid Calcium Phosphorus 4.4 Magnesium Total Bilirubin 0.50 Direct Bilirubin 0.11 AST 387 H ALT 161 H Alkaline Phosphatase 419 H Ammonia Total Creatine Kinase 1504 H Troponin I Total Protein 6.0 L Albumin 2.7 L Globulin 3.3 Albumin/Globulin Ratio Triglycerides 59 TSH Serum , Qual NEGATIVE Urine Color Urine Clarity Urine pH Ur Specific [place] Urine Protein Urine Glucose (UA) Urine Ketones Urine Occult Blood Urine Nitrite Urine Bilirubin Urine Urobilinogen Ur Leukocyte Esterase Urine RBC Urine WBC Ur Squamous Epith Cells Urine Bacteria Urine Mucus MRSA (PCR) POC Glucose 12/31/20 12/31/20 12/31/20 16:40 16:40 20:20 WBC RBC Hgb Hct MCV MCH MCHC RDW Std Deviation RDW Coeff of Ana Plt Count MPV Immature Gran % (Auto) Neut % (Auto) Lymph % (Auto) [place] % (Auto) Eos % (Auto) Baso % (Auto) Absolute Neuts (auto) Absolute Lymphs (auto) Total Counted Neutrophils % (Manual) Band Neutrophils % Lymphocytes % (Manual) Monocytes % (Manual) Eosinophils % (Manual) Basophils % (Manual) Metamyelocytes % Myelocytes % Nucleated RBC % Nucleated RBCs/100 WBC Diff Path Review Reactive Lymphocytes Platelet Estimate RBC Morphology PT INR APTT Specimen Type Sample Site pH Bicarbonate Actual Total CO2 Base Excess O2 Saturation O2 % ABG pCO2 ABG pO2 VBG pH VBG pO2 VBG HCO3 VBG Total CO2 VBG O2 Sat (Calc) VBG Base Excess POC Mix VBG pCO2 Pt Tmp Respiration Rate O2 Delivery Device Vent Mode Tidal Volume POC PEEP Sodium Potassium Chloride Carbon Dioxide Anion Gap BUN Creatinine Estim Creat Clear Calc Est GFR (MDRD) Af Amer Est GFR (MDRD) Non-Af BUN/Creatinine Ratio Glucose Lactic Acid 5.2 H* Calcium Phosphorus Magnesium Total Bilirubin Direct Bilirubin AST ALT Alkaline Phosphatase Ammonia Total Creatine Kinase Troponin I Total Protein Albumin Globulin Albumin/Globulin Ratio Triglycerides TSH Serum , Qual Urine Color Yellow Urine Clarity Sl. Cloudy Urine pH 5.0 Ur Specific [place] 1.010 Urine Protein 100 H Urine Glucose (UA) 1000 H Urine Ketones Negative Urine Occult Blood 250 H Urine Nitrite Negative Urine Bilirubin Negative Urine Urobilinogen Normal Ur Leukocyte Esterase 25 H Urine RBC 5-10 SEEN Urine WBC 0-5 SEEN Ur Squamous Epith Cells 0 SEEN Urine Bacteria RARE Urine Mucus 0 SEEN MRSA (PCR) Negative POC Glucose 01/01/21 01/01/21 01/01/21 02:53 04:00 07:18 WBC RBC Hgb Hct MCV MCH MCHC RDW Std Deviation RDW Coeff of Ana Plt Count MPV Immature Gran % (Auto) Neut % (Auto) Lymph % (Auto) [place] % (Auto) Eos % (Auto) Baso % (Auto) Absolute Neuts (auto) Absolute Lymphs (auto) Total Counted Neutrophils % (Manual) Band Neutrophils % Lymphocytes % (Manual) Monocytes % (Manual) Eosinophils % (Manual) Basophils % (Manual) Metamyelocytes % Myelocytes % Nucleated RBC % Nucleated RBCs/100 WBC Diff Path Review Reactive Lymphocytes Platelet Estimate RBC Morphology PT INR APTT Specimen Type CASSANDRA Sample Site R Brach pH Bicarbonate Actual Total CO2 Base Excess O2 Saturation O2 % ABG pCO2 ABG pO2 VBG pH 7.44 H VBG pO2 66 H VBG HCO3 16 L VBG Total CO2 16 L VBG O2 Sat (Calc) 94 H VBG Base Excess -9 L POC Mix VBG pCO2 Pt Tmp 23.0 L Respiration Rate O2 Delivery Device Adult Vent Vent Mode Tidal Volume POC PEEP 5 Sodium 141 Potassium 4.4 Chloride 106 Carbon Dioxide 22.0 Anion Gap 13 BUN 21 H Creatinine 1.55 H Estim Creat Clear Calc 38.33 Est GFR (MDRD) Af Amer 46 L Est GFR (MDRD) Non-Af 38 L BUN/Creatinine Ratio 13.5 Glucose 498 H* Lactic Acid Calcium 7.7 L Phosphorus Magnesium Total Bilirubin 0.90 Direct Bilirubin AST 292 H ALT 124 H Alkaline Phosphatase 288 H Ammonia Total Creatine Kinase Troponin I 68.600 H* Total Protein 5.4 L Albumin 2.4 L Globulin 3.0 Albumin/Globulin Ratio 0.8 L Triglycerides TSH 2.79 Serum , Qual Urine Color Urine Clarity Urine pH Ur Specific [place] Urine Protein Urine Glucose (UA) Urine Ketones Urine Occult Blood Urine Nitrite Urine Bilirubin Urine Urobilinogen Ur Leukocyte Esterase Urine RBC Urine WBC Ur Squamous Epith Cells Urine Bacteria Urine Mucus MRSA (PCR) POC Glucose 453 H* 01/01/21 01/01/21 01/01/21 08:55 09:49 13:47 WBC RBC Hgb Hct MCV MCH MCHC RDW Std Deviation RDW Coeff of Ana Plt Count MPV Immature Gran % (Auto) Neut % (Auto) Lymph % (Auto) [place] % (Auto) Eos % (Auto) Baso % (Auto) Absolute Neuts (auto) Absolute Lymphs (auto) Total Counted Neutrophils % (Manual) Band Neutrophils % Lymphocytes % (Manual) Monocytes % (Manual) Eosinophils % (Manual) Basophils % (Manual) Metamyelocytes % Myelocytes % Nucleated RBC % Nucleated RBCs/100 WBC Diff Path Review Reactive Lymphocytes Platelet Estimate RBC Morphology PT INR APTT Specimen Type Sample Site pH Bicarbonate Actual Total CO2 Base Excess O2 Saturation O2 % ABG pCO2 ABG pO2 VBG pH VBG pO2 VBG HCO3 VBG Total CO2 VBG O2 Sat (Calc) VBG Base Excess POC Mix VBG pCO2 Pt Tmp Respiration Rate O2 Delivery Device Vent Mode Tidal Volume POC PEEP Sodium Potassium Chloride Carbon Dioxide Anion Gap BUN Creatinine Estim Creat Clear Calc Est GFR (MDRD) Af Amer Est GFR (MDRD) Non-Af BUN/Creatinine Ratio Glucose Lactic Acid Calcium Phosphorus Magnesium Total Bilirubin Direct Bilirubin AST ALT Alkaline Phosphatase Ammonia 23.0 Total Creatine Kinase Troponin I Total Protein Albumin Globulin Albumin/Globulin Ratio Triglycerides TSH Serum , Qual Urine Color Urine Clarity Urine pH Ur Specific [place] Urine Protein Urine Glucose (UA) Urine Ketones Urine Occult Blood Urine Nitrite Urine Bilirubin Urine Urobilinogen Ur Leukocyte Esterase Urine RBC Urine WBC Ur Squamous Epith Cells Urine Bacteria Urine Mucus MRSA (PCR) POC Glucose > 500 H* > 500 H* 01/01/21 01/01/21 01/01/21 15:31 16:32 17:29 WBC RBC Hgb Hct MCV MCH MCHC RDW Std Deviation RDW Coeff of Ana Plt Count MPV Immature Gran % (Auto) Neut % (Auto) Lymph % (Auto) [place] % (Auto) Eos % (Auto) Baso % (Auto) Absolute Neuts (auto) Absolute Lymphs (auto) Total Counted Neutrophils % (Manual) Band Neutrophils % Lymphocytes % (Manual) Monocytes % (Manual) Eosinophils % (Manual) Basophils % (Manual) Metamyelocytes % Myelocytes % Nucleated RBC % Nucleated RBCs/100 WBC Diff Path Review Reactive Lymphocytes Platelet Estimate RBC Morphology PT INR APTT Specimen Type Sample Site pH Bicarbonate Actual Total CO2 Base Excess O2 Saturation O2 % ABG pCO2 ABG pO2 VBG pH VBG pO2 VBG HCO3 VBG Total CO2 VBG O2 Sat (Calc) VBG Base Excess POC Mix VBG pCO2 Pt Tmp Respiration Rate O2 Delivery Device Vent Mode Tidal Volume POC PEEP Sodium Potassium Chloride Carbon Dioxide Anion Gap BUN Creatinine Estim Creat Clear Calc Est GFR (MDRD) Af Amer Est GFR (MDRD) Non-Af BUN/Creatinine Ratio Glucose Lactic Acid Calcium Phosphorus Magnesium Total Bilirubin Direct Bilirubin AST ALT Alkaline Phosphatase Ammonia Total Creatine Kinase Troponin I Total Protein Albumin Globulin Albumin/Globulin Ratio Triglycerides TSH Serum , Qual Urine Color Urine Clarity Urine pH Ur Specific [place] Urine Protein Urine Glucose (UA) Urine Ketones Urine Occult Blood Urine Nitrite Urine Bilirubin Urine Urobilinogen Ur Leukocyte Esterase Urine RBC Urine WBC Ur Squamous Epith Cells Urine Bacteria Urine Mucus MRSA (PCR) POC Glucose > 500 H* > 500 H* > 500 H* 01/01/21 01/01/21 01/01/21 18:30 19:33 20:30 WBC RBC Hgb Hct MCV MCH MCHC RDW Std Deviation RDW Coeff of Ana Plt Count MPV Immature Gran % (Auto) Neut % (Auto) Lymph % (Auto) [place] % (Auto) Eos % (Auto) Baso % (Auto) Absolute Neuts (auto) Absolute Lymphs (auto) Total Counted Neutrophils % (Manual) Band Neutrophils % Lymphocytes % (Manual) Monocytes % (Manual) Eosinophils % (Manual) Basophils % (Manual) Metamyelocytes % Myelocytes % Nucleated RBC % Nucleated RBCs/100 WBC Diff Path Review Reactive Lymphocytes Platelet Estimate RBC Morphology PT INR APTT Specimen Type Sample Site pH Bicarbonate Actual Total CO2 Base Excess O2 Saturation O2 % ABG pCO2 ABG pO2 VBG pH VBG pO2 VBG HCO3 VBG Total CO2 VBG O2 Sat (Calc) VBG Base Excess POC Mix VBG pCO2 Pt Tmp Respiration Rate O2 Delivery Device Vent Mode Tidal Volume POC PEEP Sodium Potassium Chloride Carbon Dioxide Anion Gap BUN Creatinine Estim Creat Clear Calc Est GFR (MDRD) Af Amer Est GFR (MDRD) Non-Af BUN/Creatinine Ratio Glucose Lactic Acid Calcium Phosphorus Magnesium Total Bilirubin Direct Bilirubin AST ALT Alkaline Phosphatase Ammonia Total Creatine Kinase Troponin I Total Protein Albumin Globulin Albumin/Globulin Ratio Triglycerides TSH Serum , Qual Urine Color Urine Clarity Urine pH Ur Specific [place] Urine Protein Urine Glucose (UA) Urine Ketones Urine Occult Blood Urine Nitrite Urine Bilirubin Urine Urobilinogen Ur Leukocyte Esterase Urine RBC Urine WBC Ur Squamous Epith Cells Urine Bacteria Urine Mucus MRSA (PCR) POC Glucose > 500 H* 500 H* 404 H 01/01/21 01/01/2101/01/21 21:32 22:33 23:37 WBC RBC Hgb Hct MCV MCH MCHC RDW Std Deviation RDW Coeff of Ana Plt Count MPV Immature Gran % (Auto) Neut % (Auto) Lymph % (Auto) [place] % (Auto) Eos % (Auto) Baso % (Auto) Absolute Neuts (auto) Absolute Lymphs (auto) Total Counted Neutrophils % (Manual) Band Neutrophils % Lymphocytes % (Manual) Monocytes % (Manual) Eosinophils % (Manual) Basophils % (Manual) Metamyelocytes % Myelocytes % Nucleated RBC % Nucleated RBCs/100 WBC Diff Path Review Reactive Lymphocytes Platelet Estimate RBC Morphology PT INR APTT Specimen Type Sample Site pH Bicarbonate Actual Total CO2 Base Excess O2 Saturation O2 % ABG pCO2 ABG pO2 VBG pH VBG pO2 VBG HCO3 VBG Total CO2 VBG O2 Sat (Calc) VBG Base Excess POC Mix VBG pCO2 Pt Tmp Respiration Rate O2 Delivery Device Vent Mode Tidal Volume POC PEEP Sodium Potassium Chloride Carbon Dioxide Anion Gap BUN Creatinine Estim Creat Clear Calc Est GFR (MDRD) Af Amer Est GFR (MDRD) Non-Af BUN/Creatinine Ratio Glucose Lactic Acid Calcium Phosphorus Magnesium Total Bilirubin Direct Bilirubin AST ALT Alkaline Phosphatase Ammonia Total Creatine Kinase Troponin I Total Protein Albumin Globulin Albumin/Globulin Ratio Triglycerides TSH Serum , Qual Urine Color Urine Clarity Urine pH Ur Specific [place] Urine Protein Urine Glucose (UA) Urine Ketones Urine Occult Blood Urine Nitrite Urine Bilirubin Urine Urobilinogen Ur Leukocyte Esterase Urine RBC Urine WBC Ur Squamous Epith Cells Urine Bacteria Urine Mucus MRSA (PCR) POC Glucose 409 H 415 H 337 H 01/01/21 01/02/21 01/02/21 Unknown 00:53 02:04 WBC 23.6 H RBC 3.26 L Hgb 10.1 L Hct 30.4 L MCV 93.3 MCH 31.0 MCHC 33.2 RDW Std Deviation 42.2 RDW Coeff of Ana 12.4 Plt Count 230 MPV 9.6 Immature Gran % (Auto) 0.900 Neut % (Auto) 90.2 H Lymph % (Auto) 3.6 L [place] % (Auto) 5.1 Eos % (Auto) 0.0 Baso % (Auto) 0.2 Absolute Neuts (auto) 21.3 H Absolute Lymphs (auto) 0.85 Total Counted Neutrophils % (Manual) Band Neutrophils % Lymphocytes % (Manual) Monocytes % (Manual) Eosinophils % (Manual) Basophils % (Manual) Metamyelocytes % Myelocytes % Nucleated RBC % 0 Nucleated RBCs/100 WBC Diff Path Review Reactive Lymphocytes Platelet Estimate RBC Morphology PT INR APTT Specimen Type Sample Site pH Bicarbonate Actual Total CO2 Base Excess O2 Saturation O2 % ABG pCO2 ABG pO2 VBG pH VBG pO2 VBG HCO3 VBG Total CO2 VBG O2 Sat (Calc) VBG Base Excess POC Mix VBG pCO2 Pt Tmp Respiration Rate O2 Delivery Device Vent Mode Tidal Volume POC PEEP Sodium Potassium Chloride Carbon Dioxide Anion Gap BUN Creatinine Estim Creat Clear Calc Est GFR (MDRD) Af Amer Est GFR (MDRD) Non-Af BUN/Creatinine Ratio Glucose Lactic Acid Calcium Phosphorus Magnesium Total Bilirubin Direct Bilirubin AST ALT Alkaline Phosphatase Ammonia Total Creatine Kinase Troponin I Total Protein Albumin Globulin Albumin/Globulin Ratio Triglycerides TSH Serum , Qual Urine Color Urine Clarity Urine pH Ur Specific [place] Urine Protein Urine Glucose (UA) Urine Ketones Urine Occult Blood Urine Nitrite Urine Bilirubin Urine Urobilinogen Ur Leukocyte Esterase Urine RBC Urine WBC Ur Squamous Epith Cells Urine Bacteria Urine Mucus MRSA (PCR) POC Glucose 332 H 364 H 01/02/21 01/02/21 01/02/21 02:59 04:10 04:15 WBC 25.1 H RBC 2.80 L Hgb 8.7 L Hct 25.9 L MCV 92.5 MCH 31.1 MCHC 33.6 RDW Std Deviation 43.5 RDW Coeff of Ana 12.8 Plt Count 199 MPV 10.0 Immature Gran % (Auto) 1.400 H Neut % (Auto) 82.9 H Lymph % (Auto) 5.3 L [place] % (Auto) 5.6 Eos % (Auto) 4.5 Baso % (Auto) 0.3 Absolute Neuts (auto) 20.8 H Absolute Lymphs (auto) 1.34 Total Counted Neutrophils % (Manual) Band Neutrophils % Lymphocytes % (Manual) Monocytes % (Manual) Eosinophils % (Manual) Basophils % (Manual) Metamyelocytes % Myelocytes % Nucleated RBC % 0 Nucleated RBCs/100 WBC Diff Path Review Reactive Lymphocytes Platelet Estimate RBC Morphology PT INR APTT Specimen Type Sample Site pH Bicarbonate Actual Total CO2 Base Excess O2 Saturation O2 % ABG pCO2 ABG pO2 VBG pH VBG pO2 VBG HCO3 VBG Total CO2 VBG O2 Sat (Calc) VBG Base Excess POC Mix VBG pCO2 Pt Tmp Respiration Rate O2 Delivery Device Vent Mode Tidal Volume POC PEEP Sodium Potassium Chloride Carbon Dioxide Anion Gap BUN Creatinine Estim Creat Clear Calc Est GFR (MDRD) Af Amer Est GFR (MDRD) Non-Af BUN/Creatinine Ratio Glucose Lactic Acid Calcium Phosphorus Magnesium Total Bilirubin Direct Bilirubin AST ALT Alkaline Phosphatase Ammonia Total Creatine Kinase Troponin I Total Protein Albumin Globulin Albumin/Globulin Ratio Triglycerides TSH Serum , Qual Urine Color Urine Clarity Urine pH Ur Specific [place] Urine Protein Urine Glucose (UA) Urine Ketones Urine Occult Blood Urine Nitrite Urine Bilirubin Urine Urobilinogen Ur Leukocyte Esterase Urine RBC Urine WBC Ur Squamous Epith Cells Urine Bacteria Urine Mucus MRSA (PCR) POC Glucose 366 H 334 H 01/02/21 01/02/21 01/02/21 04:15 05:05 06:06 WBC RBC Hgb Hct MCV MCH MCHC RDW Std Deviation RDW Coeff of Ana Plt Count MPV Immature Gran % (Auto) Neut % (Auto) Lymph % (Auto) [place] % (Auto) Eos % (Auto) Baso % (Auto) Absolute Neuts (auto) Absolute Lymphs (auto) Total Counted Neutrophils % (Manual) Band Neutrophils % Lymphocytes % (Manual) Monocytes % (Manual) Eosinophils % (Manual) Basophils % (Manual) Metamyelocytes % Myelocytes % Nucleated RBC % Nucleated RBCs/100 WBC Diff Path Review Reactive Lymphocytes Platelet Estimate RBC Morphology PT INR APTT Specimen Type Sample Site pH Bicarbonate Actual Total CO2 Base Excess O2 Saturation O2 % ABG pCO2 ABG pO2 VBG pH VBG pO2 VBG HCO3 VBG Total CO2 VBG O2 Sat (Calc) VBG Base Excess POC Mix VBG pCO2 Pt Tmp Respiration Rate O2 Delivery Device Vent Mode Tidal Volume POC PEEP Sodium 150 H Potassium 3.4 L Chloride 117 H Carbon Dioxide 27.0 Anion Gap 6 BUN 34 H Creatinine 2.43 H Estim Creat Clear Calc 24.45 Est GFR (MDRD) Af Amer 27 L Est GFR (MDRD) Non-Af 23 L BUN/Creatinine Ratio 14.0 Glucose 365 H Lactic Acid Calcium 8.1 L Phosphorus Magnesium 2.1 Total Bilirubin 0.80 Direct Bilirubin 0.21 AST 113 H ALT 84 H Alkaline Phosphatase 205 H Ammonia Total Creatine Kinase Troponin I Total Protein 5.4 L Albumin 2.1 L Globulin 3.3 Albumin/Globulin Ratio Triglycerides TSH Serum , Qual Urine Color Urine Clarity Urine pH Ur Specific [place] Urine Protein Urine Glucose (UA) Urine Ketones Urine Occult Blood Urine Nitrite Urine Bilirubin Urine Urobilinogen Ur Leukocyte Esterase Urine RBC Urine WBC Ur Squamous Epith Cells Urine Bacteria Urine Mucus MRSA (PCR) POC Glucose 321 H 322 H Microbiology 12/31/20 20:20 Blood Culture (Wb) - Central Line Blood Culture - Preliminary 12/31/20 22:55 Sputum, Induced/Lukens Gram Stain - Final 12/31/20 22:55 Sputum, Induced/Lukens Respiratory Culture - Preliminary Beta hemolytic organism 12/31/20 22:40 Mucosa - Nasopharyngeal Respiratory Panel (PCR) - Final 12/31/20 16:40 Urine Catheter - De Jesus Legionella Antigen - Final 12/31/20 16:40 Urine Catheter - De Jesus Streptococcus pneumoniae Antigen (M - Final Clinical Impression(s) from Imaging Studies Chest X-Ray 12/31/20 16:25 IMPRESSION: 1. Interval placement of endotracheal tube with tip approximately 3 7 m above the kenisha. 2. Interval placement of nasogastric tube with the tip below the diaphragm. 3. Right-sided pneumonia. Electronically Signed: Akash James MD at 17:23 EST Tel , Service support , KUB X-Ray 12/31/20 18:25 IMPRESSION: Nasogastric tube is coiled in the fundus of the stomach. Electronically Signed: Dariel Eid MD at 19:19 EST , Service support , Chest X-Ray 12/31/20 20:00 Medical Necessity - Tobacco Use Smoking Status: Unknown if ever smoked Assessment/Plan All Active Problems History of coronary artery stent placement (Acute ~12/31/20) Cardiac arrest (Acute) STEMI (ST elevation myocardial infarction) (Acute) Ventricular fibrillation (Acute) Acute hypoxic respiratory failure (Acute) RECOMMENDATIONS: 1. Continue patient on assist control mode of mechanical ventilation and wean FiO2 to maintain saturations at or above 90%. 2. Continue antimicrobials as ordered. 3. Continue Levophed to maintain a mean arterial pressure at or above 65 mmHg. 4. Start D5W given increasing sodium and chloride. 5. Continue insulin infusion, given persistent hyperglycemia. 6. Potassium repletion as ordered. 7. Obtain MRI brain and EEG. Plan to obtain neurology consultation after work-up is completed. 8. Continue tube feeds as tolerated. 9. Continue appropriate DVT and GI prophylaxis. IMPRESSIONS: 1. Acute hypoxemic respiratory failure status post cardiac arrest The patient does appear to have multifocal airspace disease in the right hemithorax concerning for possible aspiration in the setting of cardiac arrest. Accordingly, she will be continued on broad-spectrum antimicrobials, pending further infectious work-up. Plan to continue to wean FiO2 and PEEP as tolerated to maintain saturations at or above 90%. The patient will be continued on tube feeds as tolerated. 2. Inferior wall myocardial infarction/STEMI The patient did undergo angioplasty and stenting to her RCA. Ejection fraction was reduced at 35 to 40% per documentation. Plan to continue supportive measures per cardiology recommendations. 3. Septic shock Clinical concern that the patient may also have a cardiac component to her shock state as well. Nevertheless, I do strongly suspect that she likely has an aspiration pneumonia. As noted above, the patient will be continued on broad-spectrum antimicrobials. Vasopressor support will be continued to maintain a mean arterial pressure at or above 65 mmHg. 4. Encephalopathy Likely metabolic and/or anoxic in etiology. The patient did have a reported 30-minute downtime prior to return of spontaneous circulation. At this time, I did recommend that all forms of sedation be discontinued to better assess the patient's baseline neurological status. Given no improvement noted in neurologic status over the last 24 hours, will obtain MRI brain and EEG. Recommend neurology consultation once work-up is complete. 5. Acute kidney injury Likely prerenal in etiology with likely a component of ischemic ATN due to hemodynamic instability in the setting of the patient's acute presentation. The patient will remain on vasopressor support in an attempt to maintain hemodynamic stability. We will continue to monitor urine output for now. There is no current indication for renal replacement therapy. 6. Elevated transaminases Unclear baseline levels. The mild elevations could also represent an acute reaction to the patient's cardiac arrest and subsequent hemodynamic instability. We will continue to monitor accordingly. 7. Diabetes mellitus Continue insulin infusion as ordered. TIME: 40 minutes of critical care time, independent of procedures, was spent addressing the patient's acute hypoxemic respiratory failure, status post cardiac arrest, septic shock, encephalopathy, acute kidney injury, review of all data and collaboration with the care team. ([id number]) [phone]: [id number] Critical care first hour
--- NOTE | 2021-01-02 06:34 | MRI_ITS ---
STUDY: MRI BRAIN WITHOUT CONTRAST REASON FOR EXAM: Female, 50 years old. encephalopathy, witnessed cardiac arrest, acute hypoxic resp failure TECHNIQUE: Standardized multiplanar fat and water weighted pulse sequences were obtained. COMPARISON: None. FINDINGS: Normal size of the ventricles and extra-axial spaces for the patient''s age. There is signal abnormality noted on diffusion-weighted images and on FLAIR images in the cortex of the posterior aspect of the right and left cingulate gyri and right and left temporal lobes suggesting hypoxic ischemic injury. Normal bilateral basal ganglia. Normal thalami. There is no extra-axial fluid accumulation. Normal flow voids within the major intracranial circulation suggesting patency by spin echo criteria. Normal sella turcica, pituitary gland, infundibular stalk, optic chiasm and hypothalamus. Normal tectal plate and pineal gland. Normal midbrain, anthony and medulla. Normal cerebellum. Normal basal cisterns. Normal bilateral temporal bones. Normal bilateral internal auditory canals. No demonstrated orbital abnormality, within the constraints of a routine brain study. There is air-fluid level in the left maxillary sinus suggesting sinusitis. Normal calvarium and skull base. Normal visualized soft tissue structures. Normal visualized upper cervical spine. MRI/Brain without Contrast IMPRESSION: There is signal abnormality noted on diffusion-weighted images and on FLAIR images in the cortex of the posterior aspect of the right and left cingulate gyri and right and left temporal lobes suggesting hypoxic ischemic injury. There is air-fluid level in the left maxillary sinus suggesting sinusitis. Electronically Signed: Anushka Stovall MD at 12:34 EST Tel , Service support ,
[2021-01-02 08:20] LABS: Bedside Glucose 224 mg/dL (70-110)
[2021-01-02 08:20] LABS: Bedside Glucose 266 mg/dL (70-110)
--- NOTE | 2021-01-02 08:32 | TELEMED_ITS ---
[facility] Tele[facility] has confirmed receipt of a request for visit. This document confirms receipt of the order initiating the consult. To find the results of the consultation, please view the patient's reports for the scanned Telemed Consult.
[2021-01-02] MEDS: Aspirin 81 MG TAB.CHEW GT (09:20)
[2021-01-02] MEDS: TICAGRELOR 90 MG TABLET GT ×2 (09:20→20:00)
[2021-01-02] MEDS: Chlorhexidine 15 ML PO ×2 (09:21→20:01)
[2021-01-02 09:36] LABS: Bedside Glucose 207 mg/dL (70-110)
--- NOTE | 2021-01-02 09:46 | PCM.PN.HOSP ---
Patient Problems: Active and Suspected Problems Cardiac arrest (Acute) STEMI (ST elevation myocardial infarction) (Acute) Ventricular fibrillation (Acute) Acute hypoxic respiratory failure (Acute) Reason for Visit: Acute ST segment elevation MT Acute encephalopathy?suspected anoxic encephalopathy Subjective: Patient is a 50-year-old lady who had a cardiac arrest found to be in V. fib resuscitated using ACLS protocol brought to the emergency department EKG demonstrated inferior ST segment elevation MT patient underwent emergency left catheterization which revealed a 99% stenosis of an RCA lesion which was treated with PCI/JOSE J. She was also found to have a 70 to 80% stenosis in the proximal and mid LAD ejection fraction found to be 35 to 40% 01/02/2021; patient remains on the vent unresponsive without any sedation. Patient kidney function continues to worsen. Sodium levels up to 150. Patient scheduled to undergo EEG as well as MRI for evaluation of suspected anoxic encephalopathy Objective: GENERAL: on the vent without sedation HEENT: Atraumatic; EYES; Anicteric, Normal Conjunctiva NECK; supple, normal thyroid, RESPIRATORY: Diminished to auscultation CARDIOVASCULAR: Regular S1 S2, GI: soft, normoactive bowel sounds, : No Renal angle tenderness; EXTREMITIES: No edema, no clubbing, MUSCULOSKELETAL: no muscle waisting NEURO:Unresponsive on the vent without sedation SKIN: No Rash Vitals/I&O's: Vital Signs Temp Pulse Resp BP Pulse Ox 100.9 F H 126 H 19 H 119/67 96 01/02/21 07:00 01/02/21 07:00 01/02/21 07:00 01/02/21 07:00 01/02/21 07:00 Oxygen Delivery Method Mechanical Ventilator Weight: 68.6 kg Body Mass Index (BMI) 24.1 Finger Stick Blood Glucose 207 Intake and Output for Last 24 Hours 12/31/20 01/01/21 01/02/21 23:59 23:59 23:59 Intake Total 4938.52 / 4993.63 3588.09 / 3690.44 572.06 / 572.06 Output Total 295 / 395 2360 / 2360 100 / 100 Balance 4643.52 / 4598.63 1228.09 / 1330.44 472.06 / 472.06 Microbiology Past 72 Hours 12/31/20 20:20 Blood Culture (Wb) - Central Line Blood Culture - Preliminary 12/31/20 22:55 Sputum, Induced/Lukens Gram Stain - Final 12/31/20 22:55 Sputum, Induced/Lukens Respiratory Culture - Preliminary Beta hemolytic organism 12/31/20 22:40 Mucosa - Nasopharyngeal Respiratory Panel (PCR) - Final 12/31/20 16:40 Urine Catheter - De Jesus Legionella Antigen - Final 12/31/20 16:40 Urine Catheter - De Jesus Streptococcus pneumoniae Antigen (M - Final Laboratory Results 12/31/20 14:20: Diff Path Review Reviewed 01/01/21 02:53: POC Glucose 453 H* 01/01/21 09:49: POC Glucose > 500 H* 01/01/21 13:47: POC Glucose > 500 H* 01/01/21 15:31: POC Glucose > 500 H* 01/01/21 16:32: POC Glucose > 500 H* 01/01/21 17:29: POC Glucose > 500 H* 01/01/21 18:30: POC Glucose > 500 H* 01/01/21 19:33: POC Glucose 500 H* 01/01/21 20:30: POC Glucose 404 H 01/01/21 21:32: POC Glucose 409 H 01/01/21 22:33: POC Glucose 415 H 01/01/21 23:37: POC Glucose 337 H 01/02/21 00:53: POC Glucose 332 H 01/02/21 02:04: POC Glucose 364 H 01/02/21 02:59: POC Glucose 366 H 01/02/21 04:10: POC Glucose 334 H 01/02/21 04:15: WBC 25.1 H, RBC 2.80 L, Hgb 8.7 L, Hct 25.9 L, MCV 92.5, MCH 31.1, MCHC 33.6, RDW Std Deviation 43.5, RDW Coeff of Ana 12.8, Plt Count 199, MPV 10.0, Immature Gran % (Auto) 1.400 H, Neut % (Auto) 82.9 H, Lymph % (Auto) 5.3 L, [place] % (Auto) 5.6, Eos % (Auto) 4.5, Baso % (Auto) 0.3, Absolute Neuts (auto) 20.8 H, Absolute Lymphs (auto) 1.34, Nucleated RBC % 0 01/02/21 04:15: Sodium 150 H, Potassium 3.4 L, Chloride 117 H, Carbon Dioxide 27.0, Anion Gap 6, BUN 34 H, Creatinine 2.43 H, Estim Creat Clear Calc 24.45, Est GFR (MDRD) Af Amer 27 L, Est GFR (MDRD) Non-Af 23 L, BUN/Creatinine Ratio 14.0, Glucose 365 H, Calcium 8.1 L, Magnesium 2.1, Total Bilirubin 0.80, Direct Bilirubin 0.21, AST 113 H, ALT 84 H, Alkaline Phosphatase 205 H, Total Protein 5.4 L, Albumin 2.1 L, Globulin 3.3 01/02/21 05:05: POC Glucose 321 H 01/02/21 06:06: POC Glucose 322 H 01/02/21 07:00: POC Glucose 266 H 01/02/21 08:16: POC Glucose 224 H 01/02/21 09:14: POC Glucose 207 H Current Medications Acetaminophen (Acetaminophen 650 Mg/20 Ml Udc) 650 mg GT Q6H PRN PRN PRN Reason: Pain Score 1-10/Temp > 100.7 F Last Admin: 01/02/21 02:56 Dose: 650 mg Documented by: Albuterol/Ipratropium (Ipratropium/Albuterol Sulfate 3 Ml Ampul.Neb) 3 ml INHALATION Q4H.RT PRN PRN Reason: wheezing Aspirin (Aspirin 81 Mg Tab.Chew) 81 mg GT DAILY@0800 [facility] Last Admin: 01/02/21 09:20 Dose: 81 mg Documented by: Atorvastatin Calcium (Atorvastatin Calcium 40 Mg Tablet) 40 mg GT QHS [facility] Last Admin: 01/01/21 21:12 Dose: 40 mg Documented by: Atropine Sulfate (Atropine Sulfate 1 Mg/10 Ml Syringe) 0.5 mg IV UD PRN PRN Reason: HR <50 bpm Chlorhexidine Gluconate (Chlorhexidine 15 Ml) 15 ml PO BID [facility] Last Admin: 01/02/21 09:21 Dose: 15 ml Documented by: Dextrose (Dextrose 50%-Water 25 Gm/50 Ml Disp.Syrin) 0 gm IV X1 PRN; Protocol PRN Reason: Hypoglycemia Protocol Heparin Sodium (Beef Lung) (Heparin Lock 500 Unit/5 Ml In 10 Ml Syringe) 500 unit IV UD PRN PRN Reason: HEPARIN FLUSH Heparin Sodium (Porcine) (Heparin Injection (Vial) 5,000 Unit/Ml Vial) 5,000 unit SC Q8 [facility] Last Admin: 01/02/21 05:33 Dose: 5,000 unit Documented by: Sodium Chloride () 250 mls @ 15 mls/hr IV .[id number] PRN PRN Reason: Saline Flush Sodium Chloride () 250 mls @ 15 mls/hr IV .[id number] PRN PRN Reason: Additional IVPB Infusion Piperacillin Sod/Tazobactam (Sod 3.375 gm/ Sodium Chloride) 50 mls @ 12.5 mls/hr IV Q8 [facility] Last Admin: 01/02/21 05:32 Dose: 12.5 mls/hr Documented by: Norepinephrine Bitartrate 8 mg (/ Sodium Chloride) 250 mls @ 9.375 mls/hr CONT INF .[id number] [facility]; Protocol Last Titration: 01/02/21 07:00 Dose: 5 mcg/min, 9.4 mls/hr Documented by: Pantoprazole Sodium 40 mg/ (Sodium Chloride) 110 mls @ 330 mls/hr IV Q12 [facility] Last Admin: 01/02/21 09:27 Dose: 330 mls/hr Documented by: Enteral Nutritional Formula (Vital Af 1.2 Raffi Liquid) 1,000 mls @ 60 mls/hr GT .[id number] [facility] Last Admin: 01/02/21 05:09 Dose: Not Given Documented by: Insulin Human Lispro 100 unit/ (Sodium Chloride) 100 mls @ 6.57 mls/hr CONT INF .[id number] [facility]; Protocol Last Admin: 01/02/21 09:16 Dose: 3.6 mls/hr Documented by: Dextrose () 1,000 mls @ 100 mls/hr IV .Q10H [facility] Last Infusion: 01/02/21 07:07 Dose: 0 mls/hr Documented by: Potassium Chloride 20 meq/ (Dextrose) 1,010 mls @ 75 mls/hr IV .[id number] [facility] Insulin Glargine (Insulin Glargine 100 Units/Ml Pen) 40 units SC BID [facility] Last Admin: 01/01/21 13:56 Dose: Not Given Documented by: Labetalol HCl (Labetalol (Prefilled) 20 Mg/4 Ml) 5 mg IV X1 PRN PRN Reason: SBP >160 when pulling sheath Stop: 01/02/21 15:45 Prochlorperazine Edisylate (Prochlorperazine 10 Mg/2 Ml Vial) 5 mg IV Q4H PRN PRN PRN Reason: Breakthrough Nausea/Vomiting Sodium Chloride (0.9% Saline Lock 10 Ml Syringe) 10 - 40 ml IV UD PRN PRN Reason: SALINE FLUSH Ticagrelor (Ticagrelor 90 Mg Tablet) 90 mg GT BID TANIA Last Admin: 01/02/21 09:20 Dose: 90 mg Documented by: STROKE Vital Signs/Narrative: Vital Signs Temp Pulse Resp BP Pulse Ox 01/02/21 07:00 100.9 F H 126 H 19 H 119/67 96 01/02/21 06:58 126 H 20 H 94 01/02/21 06:45 100.9 F H 125 H 15 122/64 H 96 01/02/21 06:30 100.8 F H 124 H 19 H 109/60 96 01/02/21 06:15 100.7 F H 123 H 18 112/68 95 01/02/21 06:00 100.7 F H 123 H 18 108/62 96 Medical Necessity - Tobacco Use Smoking Status: Unknown if ever smoked Assessment/Plan All Active Problems History of coronary artery stent placement (Acute ~12/31/20) Cardiac arrest (Acute) STEMI (ST elevation myocardial infarction) (Acute) Ventricular fibrillation (Acute) Acute hypoxic respiratory failure (Acute) Patient is a 50-year-old lady who had a cardiac arrest found to be in V. fib resuscitated using ACLS protocol brought to the emergency department EKG demonstrated inferior ST segment elevation MT patient underwent emergency left catheterization which revealed a 99% stenosis of an RCA lesion which was treated with PCI/JOSE J. She was also found to have a 70 to 80% stenosis in the proximal and mid LAD ejection fraction found to be 35 to 40% 1. Acute inferior ST segment elevation [place] -Patient presented with cardiac arrest found to be in V. fib resuscitated using ACLS protocol brought to the emergency department EKG demonstrated inferior ST segment elevation MT patient underwent emergency left catheterization which revealed a 99% stenosis of an RCA lesion which was treated with PCI/JOSE J. She was also found to have a 70 to 80% stenosis in the proximal and mid LAD ejection fraction found to be 35 to 40% 2. Acute hypoxic respiratory failure -Following cardiopulmonary arrest and acute inferior ST MT. Patient was intubated admitted to the intensive care unit management deferred to manufacturing technology professor 01/02/2021; patient remains on the vent unresponsive without any sedation. Patient kidney function continues to worsen. Sodium levels up to 150. Patient scheduled to undergo EEG as well as MRI for evaluation of suspected anoxic encephalopathy 3. Acute encephalopathy ?01/02/2021 suspected anoxic encephalopathy from prolonged CPR. Patient scheduled to undergo MRI and EEG 4. Cardiogenic shock -Patient is on Levophed and vasopressin 5. Acute kidney injury ?Following hypotension after patient's acute ST segment elevation MT -01/02/2021 kidney function continues to worsen consult placed to nephrology 6. Acute transaminitis -Secondary to shock liver following patient cardiopulmonary arrest 7. Hyponatremia ?Patient started on D5W with consultation placed to nephrology. Ordered serial BMPs 8. Cardiopulmonary arrest -Successfully resuscitated using ACLS protocol with ROSC 9. Diabetes mellitus type II -01/02/2021; patient has been placed on long-acting insulin discontinued in view of persistent hypoglycemia subsequently started on insulin drip 10. DVT prophylaxis ?Heparin Total CC time spent on patient 45 minutes Procedures: [id number] Critial Care 1st Hr
[2021-01-02 12:01] LABS: Bedside Glucose 243 mg/dL (70-110)
[2021-01-02 12:01] LABS: Bedside Glucose 216 mg/dL (70-110)
--- NOTE | 2021-01-02 13:08 | PCM.CONS.R ---
Consultation - Renal 01/02/21 PCP/ Referring MD: Requesting physician: []dr. Dalal Primary care physician: Dr. Monroe Dozier MD This is a 50-year-old female with a past medical history of diabetes mellitus type 1 who was brought by EMS after she had cardiac arrest outside hospital. Apparently she passed out in the field CPR was started and EMS arrived on the scene and took over. She was in V. fib and was shocked multiple times and then she had PEA. She initially had an LMA with Ambu bag 4 doses of epi were given and 300 mg of IV amiodarone prior to the ER. Then she got intubated and received epinephrine bicarbonate and she was shocked. CPR was continued in the emergency room along with epinephrine bicarbonate and then she was transferred emergently to the [facility] where she was found to have mid RCA 99% stenosis and had PCI with stent. Currently the patient is intubated and cannot provide review of systems. Her initial creatinine was 1.3 and it increased to 2.4 today which prompted renal consult. The patient is currently on low-dose Levophed. Urine output was 1960 mL. She received low-dose potassium supplement for potassium of 3.4 today. - History of Present Illness History of Present Illness: The patient is a 50 year old F [] - Allergies Allergies: Allergies No Known Allergies Allergy (Verified 12/31/20 14:41) - Current Medications Current Medications: Current Medications Acetaminophen (Acetaminophen 650 Mg/20 Ml Udc) 650 mg GT Q6H PRN PRN PRN Reason: Pain Score 1-10/Temp > 100.7 F Last Admin: 01/02/21 09:45 Dose: 650 mg Documented by: Albuterol/Ipratropium (Ipratropium/Albuterol Sulfate 3 Ml Ampul.Neb) 3 ml INHALATION Q4H.RT PRN PRN Reason: wheezing Aspirin (Aspirin 81 Mg Tab.Chew) 81 mg GT DAILY@0800 [facility] Last Admin: 01/02/21 09:20 Dose: 81 mg Documented by: Atorvastatin Calcium (Atorvastatin Calcium 40 Mg Tablet) 40 mg GT QHS [facility] Last Admin: 01/01/21 21:12 Dose: 40 mg Documented by: Atropine Sulfate (Atropine Sulfate 1 Mg/10 Ml Syringe) 0.5 mg IV UD PRN PRN Reason: HR <50 bpm Chlorhexidine Gluconate (Chlorhexidine 15 Ml) 15 ml PO BID [facility] Last Admin: 01/02/21 09:21 Dose: 15 ml Documented by: Dextrose (Dextrose 50%-Water 25 Gm/50 Ml Disp.Syrin) 0 gm IV X1 PRN; Protocol PRN Reason: Hypoglycemia Protocol Heparin Sodium (Beef Lung) (Heparin Lock 500 Unit/5 Ml In 10 Ml Syringe) 500 unit IV UD PRN PRN Reason: HEPARIN FLUSH Heparin Sodium (Porcine) (Heparin Injection (Vial) 5,000 Unit/Ml Vial) 5,000 unit SC Q8 [facility] Last Admin: 01/02/21 05:33 Dose: 5,000 unit Documented by: Sodium Chloride () 250 mls @ 15 mls/hr IV .[id number] PRN PRN Reason: Saline Flush Sodium Chloride () 250 mls @ 15 mls/hr IV .[id number] PRN PRN Reason: Additional IVPB Infusion Piperacillin Sod/Tazobactam (Sod 3.375 gm/ Sodium Chloride) 50 mls @ 12.5 mls/hr IV Q8 [facility] Last Infusion: 01/02/21 09:32 Dose: Infused Documented by: Norepinephrine Bitartrate 8 mg (/ Sodium Chloride) 250 mls @ 9.375 mls/hr CONT INF .[id number] [facility]; Protocol Last Titration: 01/02/21 07:00 Dose: 5 mcg/min, 9.4 mls/hr Documented by: Pantoprazole Sodium 40 mg/ (Sodium Chloride) 110 mls @ 330 mls/hr IV Q12 [facility] Last Infusion: 01/02/21 09:47 Dose: Infused Documented by: Enteral Nutritional Formula (Vital Af 1.2 Raffi Liquid) 1,000 mls @ 60 mls/hr GT .[id number] [facility] Last Admin: 01/02/21 05:09 Dose: Not Given Documented by: Insulin Human Lispro 100 unit/ (Sodium Chloride) 100 mls @ 6.57 mls/hr CONT INF .[id number] [facility]; Protocol Last Infusion: 01/02/21 10:20 Dose: 3.6 mls/hr Documented by: Dextrose () 1,000 mls @ 100 mls/hr IV .Q10H [facility] Last Infusion: 01/02/21 10:20 Dose: 0 mls/hr Documented by: Labetalol HCl (Labetalol (Prefilled) 20 Mg/4 Ml) 5 mg IV X1 PRN PRN Reason: SBP >160 when pulling sheath Stop: 01/02/21 15:45 Prochlorperazine Edisylate (Prochlorperazine 10 Mg/2 Ml Vial) 5 mg IV Q4H PRN PRN PRN Reason: Breakthrough Nausea/Vomiting Senna/Docusate Sodium (Senna/Docusate Sodium 1 Tablet) 1 tablet PO BID [facility] Sodium Chloride (0.9% Saline Lock 10 Ml Syringe) 10 - 40 ml IV UD PRN PRN Reason: SALINE FLUSH Ticagrelor (Ticagrelor 90 Mg Tablet) 90 mg GT BID [facility] Last Admin: 01/02/21 09:20 Dose: 90 mg Documented by: - Past Surgical History Surgical History: no surgical history - Social History Smoking Status: Unknown if ever smoked - Family History Maternal History Items: Unknown Review of Systems Eyes: Reports: - - Review of systems cannot be obtained because the patient is intubated Patient Problems: Active and Suspected Problems Cardiac arrest (Acute) STEMI (ST elevation myocardial infarction) (Acute) Ventricular fibrillation (Acute) Acute hypoxic respiratory failure (Acute) - Physical Exam Vitals/I&O's: Vital Signs Temp Pulse Resp BP Pulse Ox 100.9 F H 120 H 16 98/58 L 97 01/02/21 07:00 01/02/21 11:15 01/02/21 11:15 01/02/21 11:15 01/02/21 10:46 Oxygen Delivery Method Mechanical Ventilator Weight: 68.6 kg Body Mass Index (BMI) 24.1 Finger Stick Blood Glucose 207 Intake and Output for Last 24 Hours 12/31/20 01/01/21 01/02/21 23:59 23:59 23:59 Intake Total 4938.52 / 4993.63 3588.09 / 3690.44 1064.23 / 1064.23 Output Total 295 / 395 2360 / 2360 100 / 100 Balance 4643.52 / 4598.63 1228.09 / 1330.44 964.23 / 964.23 General: No apparent distress HEENT: Atraumatic, Normocephalic, - - Debated OG tube in place Neck: Trachea Midline Lungs: Clear to auscultation, Normal air movement Abdomen: Bowel Sounds Present, Soft Extremities: No edema, Cool Microbiology Past 72 Hours 12/31/20 22:55 Sputum, Induced/Lukens Gram Stain - Final 12/31/20 22:55 Sputum, Induced/Lukens Respiratory Culture - Preliminary Streptococcus group B 12/31/20 20:20 Blood Culture (Wb) - Central Line Blood Culture - Preliminary 12/31/20 22:40 Mucosa - Nasopharyngeal Respiratory Panel (PCR) - Final 12/31/20 16:40 Urine Catheter - De Jesus Legionella Antigen - Final 12/31/20 16:40 Urine Catheter - De Jesus Streptococcus pneumoniae Antigen (M - Final Laboratory Results 12/31/20 14:20: Diff Path Review Reviewed 01/01/21 02:53: POC Glucose 453 H* 01/01/21 13:47: POC Glucose > 500 H* 01/01/21 15:31: POC Glucose > 500 H* 01/01/21 16:32: POC Glucose > 500 H* 01/01/21 17:29: POC Glucose > 500 H* 01/01/21 18:30: POC Glucose > 500 H* 01/01/21 19:33: POC Glucose 500 H* 01/01/21 20:30: POC Glucose 404 H 01/01/21 21:32: POC Glucose 409 H 01/01/21 22:33: POC Glucose 415 H 01/01/21 23:37: POC Glucose 337 H 01/02/21 00:53: POC Glucose 332 H 01/02/21 02:04: POC Glucose 364 H 01/02/21 02:59: POC Glucose 366 H 01/02/21 04:10: POC Glucose 334 H 01/02/21 04:15: WBC 25.1 H, RBC 2.80 L, Hgb 8.7 L, Hct 25.9 L, MCV 92.5, MCH 31.1, MCHC 33.6, RDW Std Deviation 43.5, RDW Coeff of Ana 12.8, Plt Count 199, MPV 10.0, Immature Gran % (Auto) 1.400 H, Neut % (Auto) 82.9 H, Lymph % (Auto) 5.3 L, [place] % (Auto) 5.6, Eos % (Auto) 4.5, Baso % (Auto) 0.3, Absolute Neuts (auto) 20.8 H, Absolute Lymphs (auto) 1.34, Nucleated RBC % 0 01/02/21 04:15: Sodium 150 H, Potassium 3.4 L, Chloride 117 H, Carbon Dioxide 27.0, Anion Gap 6, BUN 34 H, Creatinine 2.43 H, Estim Creat Clear Calc 24.45, Est GFR (MDRD) Af Amer 27 L, Est GFR (MDRD) Non-Af 23 L, BUN/Creatinine Ratio 14.0, Glucose 365 H, Calcium 8.1 L, Magnesium 2.1, Total Bilirubin 0.80, Direct Bilirubin 0.21, AST 113 H, ALT 84 H, Alkaline Phosphatase 205 H, Total Protein 5.4 L, Albumin 2.1 L, Globulin 3.3 01/02/21 05:05: POC Glucose 321 H 01/02/21 06:06: POC Glucose 322 H 01/02/21 07:00: POC Glucose 266 H 01/02/21 08:16: POC Glucose 224 H 01/02/21 09:14: POC Glucose 207 H 01/02/21 10:19: POC Glucose 216 H 01/02/21 11:40: POC Glucose 243 H Current Medications Acetaminophen (Acetaminophen 650 Mg/20 Ml Udc) 650 mg GT Q6H PRN PRN PRN Reason: Pain Score 1-10/Temp > 100.7 F Last Admin: 01/02/21 09:45 Dose: 650 mg Documented by: Albuterol/Ipratropium (Ipratropium/Albuterol Sulfate 3 Ml Ampul.Neb) 3 ml INHALATION Q4H.RT PRN PRN Reason: wheezing Aspirin (Aspirin 81 Mg Tab.Chew) 81 mg GT DAILY@0800 [facility] Last Admin: 01/02/21 09:20 Dose: 81 mg Documented by: Atorvastatin Calcium (Atorvastatin Calcium 40 Mg Tablet) 40 mg GT QHS [facility] Last Admin: 01/01/21 21:12 Dose: 40 mg Documented by: Atropine Sulfate (Atropine Sulfate 1 Mg/10 Ml Syringe) 0.5 mg IV UD PRN PRN Reason: HR <50 bpm Chlorhexidine Gluconate (Chlorhexidine 15 Ml) 15 ml PO BID [facility] Last Admin: 01/02/21 09:21 Dose: 15 ml Documented by: Dextrose (Dextrose 50%-Water 25 Gm/50 Ml Disp.Syrin) 0 gm IV X1 PRN; Protocol PRN Reason: Hypoglycemia Protocol Heparin Sodium (Beef Lung) (Heparin Lock 500 Unit/5 Ml In 10 Ml Syringe) 500 unit IV UD PRN PRN Reason: HEPARIN FLUSH Heparin Sodium (Porcine) (Heparin Injection (Vial) 5,000 Unit/Ml Vial) 5,000 unit SC Q8 [facility] Last Admin: 01/02/21 05:33 Dose: 5,000 unit Documented by: Sodium Chloride () 250 mls @ 15 mls/hr IV .[id number] PRN PRN Reason: Saline Flush Sodium Chloride () 250 mls @ 15 mls/hr IV .[id number] PRN PRN Reason: Additional IVPB Infusion Piperacillin Sod/Tazobactam (Sod 3.375 gm/ Sodium Chloride) 50 mls @ 12.5 mls/hr IV Q8 [facility] Last Infusion: 01/02/21 09:32 Dose: Infused Documented by: Norepinephrine Bitartrate 8 mg (/ Sodium Chloride) 250 mls @ 9.375 mls/hr CONT INF .[id number] [facility]; Protocol Last Titration: 01/02/21 07:00 Dose: 5 mcg/min, 9.4 mls/hr Documented by: Pantoprazole Sodium 40 mg/ (Sodium Chloride) 110 mls @ 330 mls/hr IV Q12 [facility] Last Infusion: 01/02/21 09:47 Dose: Infused Documented by: Enteral Nutritional Formula (Vital Af 1.2 Raffi Liquid) 1,000 mls @ 60 mls/hr GT .[id number] [facility] Last Admin: 01/02/21 05:09 Dose: Not Given Documented by: Insulin Human Lispro 100 unit/ (Sodium Chloride) 100 mls @ 6.57 mls/hr CONT INF .[id number] [facility]; Protocol Last Infusion: 01/02/21 10:20 Dose: 3.6 mls/hr Documented by: Dextrose () 1,000 mls @ 100 mls/hr IV .Q10H [facility] Last Infusion: 01/02/21 10:20 Dose: 0 mls/hr Documented by: Labetalol HCl (Labetalol (Prefilled) 20 Mg/4 Ml) 5 mg IV X1 PRN PRN Reason: SBP >160 when pulling sheath Stop: 01/02/21 15:45 Prochlorperazine Edisylate (Prochlorperazine 10 Mg/2 Ml Vial) 5 mg IV Q4H PRN PRN PRN Reason: Breakthrough Nausea/Vomiting Senna/Docusate Sodium (Senna/Docusate Sodium 1 Tablet) 1 tablet PO BID [facility] Sodium Chloride (0.9% Saline Lock 10 Ml Syringe) 10 - 40 ml IV UD PRN PRN Reason: SALINE FLUSH Ticagrelor (Ticagrelor 90 Mg Tablet) 90 mg GT BID [facility] Last Admin: 01/02/21 09:20 Dose: 90 mg Documented by: Assessment/Plan All Active Problems History of coronary artery stent placement (Acute ~12/31/20) Cardiac arrest (Acute) STEMI (ST elevation myocardial infarction) (Acute) Ventricular fibrillation (Acute) Acute hypoxic respiratory failure (Acute) DOUGLAS?likely ATN with cardiac arrest and shock Hypernatremia iatrogenic Hypokalemia STEMI s/p RCA PCI with stent Cardiac arrest with V. fib and PEA s/p ACLS Respiratory failure s/p intubation on vent Agree with D5 water as you are doing. The patient has excellent urine output and now she is requiring only 2 mcg of Levophed check UA/renal ultrasound/FENA keep MAP>65 avoid nephrotoxins Further work-up as indicated by clinical course. Thank you for consult will follow up.
[2021-01-02 13:16] LABS: Bedside Glucose 243 mg/dL (70-110)
--- NOTE | 2021-01-02 13:19 | US_ITS ---
STUDY: RENAL ULTRASOUND - COMPLETE REASON FOR EXAM: Female, 50 years old. DOUGLAS TECHNIQUE: Ultrasound evaluation of the kidneys was performed with real-time and static robb-scale imaging. COMPARISON: None. FINDINGS: RIGHT KIDNEY: Normal location of the right kidney, which is normal in size. The right kidney measures 12.3 x 4.3 x 5.1 cm. There is a normal cortex of the right kidney. The renal cortex measures 2.0 cm. There is no right renal mass or cyst. There are no right renal calculi. There is no right hydronephrosis. DISTAL RIGHT URETER: There is non-visualization of the distal right ureter. There is no demonstrated right ureterovesical junction calculus. There is no demonstrated right ureteral jet. LEFT KIDNEY: Normal location of the left kidney, which is normal in size. The left kidney measures 11.3 x 4.6 x 5.5 cm. There is a normal cortex of the left kidney. The renal cortex measures 2.1 cm. There is no left renal mass or cyst. There are no left renal calculi. There is no left hydronephrosis. DISTAL LEFT URETER: There is non-visualization of the distal left ureter. There is no demonstrated left ureterovesical junction calculus. There is no demonstrated left ureteral jet. BLADDER: There is a De Jesus catheter emptying the bladder. There is a normal wall thickness of the distended urinary bladder. There is no demonstrated mass within the urinary bladder. There are no demonstrated bladder calculi. US/Kidney and Bladder IMPRESSION: Normal ultrasound of the kidneys and urinary bladder. Electronically Signed: Dariel Eid MD at 19:02 EST , Service support ,
--- NOTE | 2021-01-02 13:45 | PN.CARD_ITS ---
Subjectve: Patient is still intubated, unresponsive. Her hemodynamics have improved since yesterday. She is on low-dose Levophed today. She was on max dose of Levophed and required vasopressin in addition yesterday. Her creatinine has increased but she is maintaining good urine output. Unfortunately her MRI does indicate hypoxic injury. Patient cannot give review of systems. Objective: Vital Signs Temp Pulse Resp BP Pulse Ox 100.9 F H 120 H 16 98/58 L 97 01/02/21 07:00 01/02/21 11:15 01/02/21 11:15 01/02/21 11:15 01/02/21 10:46 Oxygen Delivery Method Mechanical Ventilator Weight: 151 lb 3.794 oz Body Mass Index (BMI) 24.1 Finger Stick Blood Glucose 207 Intake and Output for Last 24 Hours 12/31/20 01/01/21 01/02/21 23:59 23:59 23:59 Intake Total 4938.52 / 4993.63 3588.09 / 3690.44 1064.23 / 1064.23 Output Total 295 / 395 2360 / 2360 100 / 100 Balance 4643.52 / 4598.63 1228.09 / 1330.44 964.23 / 964.23 General: - - Intubated, unresponsive Extremities: No edema Skin: No Rashes 01/02/21 04:15: WBC 25.1 H, RBC 2.80 L, Hgb 8.7 L, Hct 25.9 L, MCV 92.5, MCH 31.1, MCHC 33.6, Plt Count 199, MPV 10.0, Immature Gran % (Auto) 1.400 H, Neut % (Auto) 82.9 H, Lymph % (Auto) 5.3 L, [place] % (Auto) 5.6, Eos % (Auto) 4.5, Baso % (Auto) 0.3, Absolute Neuts (auto) 20.8 H, Nucleated RBC % 0 01/02/21 04:15: Sodium 150 H, Potassium 3.4 L, Chloride 117 H, Carbon Dioxide 27.0, Anion Gap 6, BUN 34 H, Creatinine 2.43 H, Est GFR (MDRD) Af Amer 27 L, Est GFR (MDRD) Non-Af 23 L, BUN/Creatinine Ratio 14.0, Glucose 365 H, Calcium 8.1 L, Magnesium 2.1, Total Bilirubin 0.80, Direct Bilirubin 0.21 Rhythm: EKG: ECHO: Stress Test: Cardiac Cath: PCI: CT Surgery: Holter monitor: EPS: PPM: CXR: Chest CT Scan: Medical Necessity - Tobacco Use Smoking Status: Unknown if ever smoked Assessment/Plan 1. Cardiac arrest: Secondary to inferior ST elevation [place]. Patient was initially in V. fib and then was in PEA. She underwent PCI to the RCA. She is intubated and continues to be unresponsive. Hemodynamically she is improved and requires only low-dose Levophed at this time. 2. Inferior ST elevation [place]: Patient was treated with JOSE J to the RCA. We will keep her on dual antiplatelet therapy, statin. Evaluation for anoxic encephalopathy is underway.
[2021-01-02 14:15] LABS: Bedside Glucose 224 mg/dL (70-110)
[2021-01-02] MEDS: 0.9% Saline Lock 10 ML Syringe IV ×2 (15:40→15:42)
[2021-01-02 16:30] LABS: Bedside Glucose 174 mg/dL (70-110)
[2021-01-02 17:16] LABS: Bedside Glucose 252 mg/dL (70-110)
[2021-01-02 18:59] LABS: Mucous, Urine 0 SEEN /hpf (<or=2+)
[2021-01-02 19:04] LABS: Color, Urine Yellow (Yellow); Glucose, Dipstick 100 mg/dl (Normal); Ketone-Dipstick 5 mg/dl (Negative); Leukocyte Esterase-Dipstick 100 /ul (Negative); Nitrite-Dipstick Positive (Negative); Occult Blood-Urine 250 /ul (Negative); Protein-Dipstick 30 mg/dl (Negative); Urine Bilirubin Dipstick Negative (Negative); Urine Clarity Cloudy (Clear); Urine Urobilinogen Normal (Normal)
[2021-01-02 19:27] LABS: Red Blood Cells-Urine > 100 SEEN /hpf (0-5); White Blood Cells 10-25 SEEN /hpf (0-5); Yeast-Urine 1+ /hpf (None Seen)
[2021-01-02 19:28] LABS: Bacteria RARE /hpf (None Seen); Squamous Epithelial Cells - UA 0-5 SEEN /hpf (5-10)
[2021-01-02 19:41] LABS: Bedside Glucose 219 mg/dL (70-110)
[2021-01-02 19:42] LABS: Urine Sodium 12 mmol/L (Not Establ.)
[2021-01-02] MEDS: Senna/Docusate Sodium 1 Tablet PO (20:00)
[2021-01-02] MEDS: Atorvastatin Calcium 40 MG Tablet GT (20:02)
--- NOTE | 2021-01-02 20:39 | NURSING ---
Spoke with Neurologist, Dr. Jensen, on [facility] telemed. I filled Dr. Jensen in on patient history and condition and performed a neurological exam for him to see patient. Dr. Jensen stated that he would be contacting Dr. Islas in regards to patient. Dr. Jensen's number is [phone].
[2021-01-02 22:35] LABS: Bedside Glucose 194 mg/dL (70-110)
[2021-01-02 22:35] LABS: Bedside Glucose 163 mg/dL (70-110)
[2021-01-02 23:11] LABS: Bedside Glucose 204 mg/dL (70-110)
[2021-01-03] VITALS (26 sets, daily range): BP systolic 97–147; BP diastolic 57–80; PULSE 117–131; RESP 15–21; TEMP 37.6–38.2; O2SAT 92–99
[2021-01-03 00:36] LABS: Bedside Glucose 174 mg/dL (70-110)
[2021-01-03 00:41] LABS: Bedside Glucose 101 mg/dL (70-110)
[2021-01-03 00:41] LABS: Bedside Glucose 140 mg/dL (70-110)
[2021-01-03] MEDS: Insulin Lispro 100 UNIT/ML INSULN.PEN SC ×4 (02:18→15:14)
[2021-01-03] MEDS: Acetaminophen 650 MG/20 ML UDC GT ×3 (03:57→18:01)
[2021-01-03] MEDS: 0.9% Saline Lock 10 ML Syringe IV ×3 (03:57→18:01)
[2021-01-03] MEDS: Vital AF 1.2 Cal Liquid 1,000 ML 60 ML GT (04:04)
[2021-01-03 04:13] LABS: Absolute Lymphocyte Count 1.42 X10^3/uL (0.83-4.51); Absolute Neutrophil Count 18.6 X10^3/uL (2.0-7.7); Basophil# 0.04 X10^3/uL; Basophil% 0.2 % (0-1); Eosinophil# 0.02 X10^3/uL; Eosinophils% 0.1 % (0-5); Hematocrit 25.6 % (37-47); Lymphocyte # 1.42 X10^3/ul (4.0); Lymphocyte % 6.5 % (19-41); Mean Corp Hgb Conc 31.3 g/dL (32-36); Mean Corpuscular Hgb 30.1 pg (27.0-32.0); Mean Corpuscular Volume 96.2 fL (81-99); Mean Platelet Vol. 10.1 fl (6.2-12.0); Monocyte# 1.02 X10^3/uL; Monocyte% 4.7 % (0-10); NRBC Flagged by Analyzer 0 % (0-5); Neutrophil # 18.63 X10^3/uL (2.7-7.7); Neutrophil % 85.3 % (47-70); Platelet Count 164 K/mm3 (150-450); RBC Distribution Width CV 13.2 % (11.6-14.6); RBC Distribution Width SD 46.3 fl (35.1-43.9); Red Blood Count 2.66 M/mm3 (4.2-5.4); White Blood Count 21.8 K/mm3 (4.4-11.0)
[2021-01-03 04:39] LABS: AST(SGOT) 84 U/L (15-37); Alanine Aminotransfer ALT/SGPT 66 U/L (13-56); Albumin, Serum 2.1 g/dL (3.2-5.0); Alkaline Phosphatase 186 U/L (45-117); Anion Gap 7 (5-15); BUN 37 mg/dL (7-18); BUN/Creat Ratio 19.4 RATIO (10-20); Bilirubin, Direct 0.21 mg/dL (0.00-0.30); Calcium,Total 7.7 mg/dL (8.5-10.1); Chloride 113 mmol/L (98-107); Creatinine, Serum 1.91 mg/dL (0.55-1.02); EST Glomerular Filtration Rate 30 mL/min (>60); Est Glom Filt Rate - Afr Amer 36 mL/min (>60); Globulin 3.5 g/dL (2.2-4.2); Glucose 342 mg/dL (74-106); Potassium 3.8 mmol/L (3.5-5.1); Protein, Total 5.6 g/dL (6.4-8.2); Sodium Level 143 mmol/L (136-145)
[2021-01-03] MEDS: Heparin Injection (Vial) 5,000 UNIT/ML VIAL 5000 UNIT SC ×2 (05:32→13:19)
[2021-01-03 05:40] LABS: Bedside Glucose 222 mg/dL (70-110)
--- NOTE | 2021-01-03 06:35 | PCM.PN.INT ---
Subjective: The patient was seen and examined at the bedside this morning. Events from the last 24 hours have been reviewed. The patient currently has a low-grade fever and remains tachycardic. However, her ventilatory requirements are minimal with an FiO2 of 25% and PEEP of 5. The patient was evaluated by neurology following completion of her MRI, which did reveal findings concerning for hypoxic injury. The patient remains neurologically unchanged from previous. The patient's insulin drip was discontinued overnight and now the patient is hyperglycemic this morning. Therefore, her insulin infusion was once again restarted. She was able to be weaned off of Levophed overnight. White count remains elevated at 22,000 with a hemoglobin of 8.0. Sodium and chloride levels have improved. Creatinine has improved to 1.9 this morning. The patient is currently documented to be overall net +9.7 L for the hospital admission. I did speak with the neurologist this morning after he reviewed the patient's EEG. He did indicate that he could not discount the possibility that the patient was experiencing nonconvulsive status epilepticus. I subsequently had a very kiersten discussion with the patient's daughter regarding her overall prognosis. Despite this, the patient's daughter requested that she be transferred to a tertiary care facility for continuous EEG monitoring. Objective: The patient's most recent lab work, culture data and imaging studies have all been personally reviewed. Preliminary blood culture dated December 31 was positive for gram-negative rods. Sputum culture was positive for group B streptococcus. General: - - Remains intubated mechanically ventilated. Neurologically unchanged from previous. HEENT: Atraumatic, Normocephalic Oral: No Gingival or Mucosal Lesions/ Ulcerations, - - Endotracheal and OG tubes remain in place. Neck: Supple, No Nodes, Trachea Midline, - - Stable central venous catheter Lungs: No rhonchi, No wheeze, No rales, Diminished Cardiovascular: Normal S1, Normal S2, Tachycardic Abdomen: Bowel Sounds Present, Soft, Non Tender Extremities: No clubbing, No cyanosis, No edema Skin: No breakdown Musculoskeletal: No Tenderness to Palpation of Joints or Extremities Lymphatic: No Cervical, Supraclavicular, or Inguinal Adenopathy Neurological: - - Neurologically unchanged from previous. Patient still has a gag and is overbreathing the set rate on the ventilator. Vital Signs Temp Pulse Resp BP Pulse Ox 100.3 F H 121 H 15 122/64 H 95 01/03/21 05:00 01/03/21 06:00 01/03/21 06:00 01/03/21 06:00 01/03/21 06:00 Oxygen Delivery Method Mechanical Ventilator Weight: 152 lb 1.903 oz Body Mass Index (BMI) 24.1 Finger Stick Blood Glucose 101 Intake and Output for Last 24 Hours 01/01/21 01/02/21 01/03/21 23:59 23:59 23:59 Intake Total 3588.09 / 3690.44 2846.72 / 2846.72 1676.6 / 1676.6 Output Total 2360 / 2360 420 / 420 200 / 200 Balance 1228.09 / 1330.44 2426.72 / 2426.72 1476.6 / 1476.6 Labs (Last 48 Hours) 12/31/20 12/31/20 01/01/21 14:20 15:06 02:53 WBC RBC Hgb Hct MCV MCH MCHC RDW Std Deviation RDW Coeff of Ana Plt Count MPV Immature Gran % (Auto) Neut % (Auto) Lymph % (Auto) Blair % (Auto) Eos % (Auto) Baso % (Auto) Absolute Neuts (auto) Absolute Lymphs (auto) Nucleated RBC % Diff Path Review Reviewed Specimen Type ART Sample Site pH 7.16 L* Bicarbonate Actual 26.5 H Total CO2 29 Base Excess -2 O2 Saturation 96 ABG pCO2 75.3 H* ABG pO2 106 H VBG pH VBG pO2 VBG HCO3 VBG Total CO2 VBG O2 Sat (Calc) VBG Base Excess POC Mix VBG pCO2 Pt Tmp O2 Delivery Device POC PEEP Sodium Potassium Chloride Carbon Dioxide Anion Gap BUN Creatinine Estim Creat Clear Calc Est GFR (MDRD) Af Amer Est GFR (MDRD) Non-Af BUN/Creatinine Ratio Glucose Calcium Magnesium Total Bilirubin Direct Bilirubin AST ALT Alkaline Phosphatase Ammonia Total Protein Albumin Globulin Urine Color Urine Clarity Urine pH Ur Specific [place] Urine Protein Urine Glucose (UA) Urine Ketones Urine Occult Blood Urine Nitrite Urine Bilirubin Urine Urobilinogen Ur Leukocyte Esterase Urine RBC Urine WBC Ur Squamous Epith Cells Urine Bacteria Urine Mucus Urine Yeast Ur Random Sodium Urine Creatinine POC Glucose 453 H* 01/01/21 01/01/21 01/01/21 07:18 08:55 09:49 WBC RBC Hgb Hct MCV MCH MCHC RDW Std Deviation RDW Coeff of Ana Plt Count MPV Immature Gran % (Auto) Neut % (Auto) Lymph % (Auto) Blair % (Auto) Eos % (Auto) Baso % (Auto) Absolute Neuts (auto) Absolute Lymphs (auto) Nucleated RBC % Diff Path Review Specimen Type CASSANDRA Sample Site R Brach pH Bicarbonate Actual Total CO2 Base Excess O2 Saturation ABG pCO2 ABG pO2 VBG pH 7.44 H VBG pO2 66 H VBG HCO3 16 L VBG Total CO2 16 L VBG O2 Sat (Calc) 94 H VBG Base Excess -9 L POC Mix VBG pCO2 Pt Tmp 23.0 L O2 Delivery Device Adult Vent POC PEEP 5 Sodium Potassium Chloride Carbon Dioxide Anion Gap BUN Creatinine Estim Creat Clear Calc Est GFR (MDRD) Af Amer Est GFR (MDRD) Non-Af BUN/Creatinine Ratio Glucose Calcium Magnesium Total Bilirubin Direct Bilirubin AST ALT Alkaline Phosphatase Ammonia 23.0 Total Protein Albumin Globulin Urine Color Urine Clarity Urine pH Ur Specific [place] Urine Protein Urine Glucose (UA) Urine Ketones Urine Occult Blood Urine Nitrite Urine Bilirubin Urine Urobilinogen Ur Leukocyte Esterase Urine RBC Urine WBC Ur Squamous Epith Cells Urine Bacteria Urine Mucus Urine Yeast Ur Random Sodium Urine Creatinine POC Glucose > 500 H* 01/01/21 01/01/21 01/01/21 13:47 15:31 16:32 WBC RBC Hgb Hct MCV MCH MCHC RDW Std Deviation RDW Coeff of Ana Plt Count MPV Immature Gran % (Auto) Neut % (Auto) Lymph % (Auto) Blair % (Auto) Eos % (Auto) Baso % (Auto) Absolute Neuts (auto) Absolute Lymphs (auto) Nucleated RBC % Diff Path Review Specimen Type Sample Site pH Bicarbonate Actual Total CO2 Base Excess O2 Saturation ABG pCO2 ABG pO2 VBG pH VBG pO2 VBG HCO3 VBG Total CO2 VBG O2 Sat (Calc) VBG Base Excess POC Mix VBG pCO2 Pt Tmp O2 Delivery Device POC PEEP Sodium Potassium Chloride Carbon Dioxide Anion Gap BUN Creatinine Estim Creat Clear Calc Est GFR (MDRD) Af Amer Est GFR (MDRD) Non-Af BUN/Creatinine Ratio Glucose Calcium Magnesium Total Bilirubin Direct Bilirubin AST ALT Alkaline Phosphatase Ammonia Total Protein Albumin Globulin Urine Color Urine Clarity Urine pH Ur Specific [place] Urine Protein Urine Glucose (UA) Urine Ketones Urine Occult Blood Urine Nitrite Urine Bilirubin Urine Urobilinogen Ur Leukocyte Esterase Urine RBC Urine WBC Ur Squamous Epith Cells Urine Bacteria Urine Mucus Urine Yeast Ur Random Sodium Urine Creatinine POC Glucose > 500 H* > 500 H* > 500 H* 01/01/21 01/01/21 01/01/21 17:29 18:30 19:33 WBC RBC Hgb Hct MCV MCH MCHC RDW Std Deviation RDW Coeff of Ana Plt Count MPV Immature Gran % (Auto) Neut % (Auto) Lymph % (Auto) Blair % (Auto) Eos % (Auto) Baso % (Auto) Absolute Neuts (auto) Absolute Lymphs (auto) Nucleated RBC % Diff Path Review Specimen Type Sample Site pH Bicarbonate Actual Total CO2 Base Excess O2 Saturation ABG pCO2 ABG pO2 VBG pH VBG pO2 VBG HCO3 VBG Total CO2 VBG O2 Sat (Calc) VBG Base Excess POC Mix VBG pCO2 Pt Tmp O2 Delivery Device POC PEEP Sodium Potassium Chloride Carbon Dioxide Anion Gap BUN Creatinine Estim Creat Clear Calc Est GFR (MDRD) Af Amer Est GFR (MDRD) Non-Af BUN/Creatinine Ratio Glucose Calcium Magnesium Total Bilirubin Direct Bilirubin AST ALT Alkaline Phosphatase Ammonia Total Protein Albumin Globulin Urine Color Urine Clarity Urine pH Ur Specific [place] Urine Protein Urine Glucose (UA) Urine Ketones Urine Occult Blood Urine Nitrite Urine Bilirubin Urine Urobilinogen Ur Leukocyte Esterase Urine RBC Urine WBC Ur Squamous Epith Cells Urine Bacteria Urine Mucus Urine Yeast Ur Random Sodium Urine Creatinine POC Glucose > 500 H* > 500 H* 500 H* 01/01/21 01/01/21 01/01/21 20:30 21:32 22:33 WBC RBC Hgb Hct MCV MCH MCHC RDW Std Deviation RDW Coeff of Ana Plt Count MPV Immature Gran % (Auto) Neut % (Auto) Lymph % (Auto) Blair % (Auto) Eos % (Auto) Baso % (Auto) Absolute Neuts (auto) Absolute Lymphs (auto) Nucleated RBC % Diff Path Review Specimen Type Sample Site pH Bicarbonate Actual Total CO2 Base Excess O2 Saturation ABG pCO2 ABG pO2 VBG pH VBG pO2 VBG HCO3 VBG Total CO2 VBG O2 Sat (Calc) VBG Base Excess POC Mix VBG pCO2 Pt Tmp O2 Delivery Device POC PEEP Sodium Potassium Chloride Carbon Dioxide Anion Gap BUN Creatinine Estim Creat Clear Calc Est GFR (MDRD) Af Amer Est GFR (MDRD) Non-Af BUN/Creatinine Ratio Glucose Calcium Magnesium Total Bilirubin Direct Bilirubin AST ALT Alkaline Phosphatase Ammonia Total Protein Albumin Globulin Urine Color Urine Clarity Urine pH Ur Specific [place] Urine Protein Urine Glucose (UA) Urine Ketones Urine Occult Blood Urine Nitrite Urine Bilirubin Urine Urobilinogen Ur Leukocyte Esterase Urine RBC Urine WBC Ur Squamous Epith Cells Urine Bacteria Urine Mucus Urine Yeast Ur Random Sodium Urine Creatinine POC Glucose 404 H 409 H 415 H 01/01/21 01/02/21 01/02/21 23:37 00:53 02:04 WBC RBC Hgb Hct MCV MCH MCHC RDW Std Deviation RDW Coeff of Ana Plt Count MPV Immature Gran % (Auto) Neut % (Auto) Lymph % (Auto) Blair % (Auto) Eos % (Auto) Baso % (Auto) Absolute Neuts (auto) Absolute Lymphs (auto) Nucleated RBC % Diff Path Review Specimen Type Sample Site pH Bicarbonate Actual Total CO2 Base Excess O2 Saturation ABG pCO2 ABG pO2 VBG pH VBG pO2 VBG HCO3 VBG Total CO2 VBG O2 Sat (Calc) VBG Base Excess POC Mix VBG pCO2 Pt Tmp O2 Delivery Device POC PEEP Sodium Potassium Chloride Carbon Dioxide Anion Gap BUN Creatinine Estim Creat Clear Calc Est GFR (MDRD) Af Amer Est GFR (MDRD) Non-Af BUN/Creatinine Ratio Glucose Calcium Magnesium Total Bilirubin Direct Bilirubin AST ALT Alkaline Phosphatase Ammonia Total Protein Albumin Globulin Urine Color Urine Clarity Urine pH Ur Specific [place] Urine Protein Urine Glucose (UA) Urine Ketones Urine Occult Blood Urine Nitrite Urine Bilirubin Urine Urobilinogen Ur Leukocyte Esterase Urine RBC Urine WBC Ur Squamous Epith Cells Urine Bacteria Urine Mucus Urine Yeast Ur Random Sodium Urine Creatinine POC Glucose 337 H 332 H 364 H 01/02/21 01/02/21 01/02/21 02:59 04:10 04:15 WBC 25.1 H RBC 2.80 L Hgb 8.7 L Hct 25.9 L MCV 92.5 MCH 31.1 MCHC 33.6 RDW Std Deviation 43.5 RDW Coeff of Ana 12.8 Plt Count 199 MPV 10.0 Immature Gran % (Auto) 1.400 H Neut % (Auto) 82.9 H Lymph % (Auto) 5.3 L Blair % (Auto) 5.6 Eos % (Auto) 4.5 Baso % (Auto) 0.3 Absolute Neuts (auto) 20.8 H Absolute Lymphs (auto) 1.34 Nucleated RBC % 0 Diff Path Review Specimen Type Sample Site pH Bicarbonate Actual Total CO2 Base Excess O2 Saturation ABG pCO2 ABG pO2 VBG pH VBG pO2 VBG HCO3 VBG Total CO2 VBG O2 Sat (Calc) VBG Base Excess POC Mix VBG pCO2 Pt Tmp O2 Delivery Device POC PEEP Sodium Potassium Chloride Carbon Dioxide Anion Gap BUN Creatinine Estim Creat Clear Calc Est GFR (MDRD) Af Amer Est GFR (MDRD) Non-Af BUN/Creatinine Ratio Glucose Calcium Magnesium Total Bilirubin Direct Bilirubin AST ALT Alkaline Phosphatase Ammonia Total Protein Albumin Globulin Urine Color Urine Clarity Urine pH Ur Specific [place] Urine Protein Urine Glucose (UA) Urine Ketones Urine Occult Blood Urine Nitrite Urine Bilirubin Urine Urobilinogen Ur Leukocyte Esterase Urine RBC Urine WBC Ur Squamous Epith Cells Urine Bacteria Urine Mucus Urine Yeast Ur Random Sodium Urine Creatinine POC Glucose 366 H 334 H 01/02/21 01/02/21 01/02/21 04:15 05:05 06:06 WBC RBC Hgb Hct MCV MCH MCHC RDW Std Deviation RDW Coeff of Ana Plt Count MPV Immature Gran % (Auto) Neut % (Auto) Lymph % (Auto) Blair % (Auto) Eos % (Auto) Baso % (Auto) Absolute Neuts (auto) Absolute Lymphs (auto) Nucleated RBC % Diff Path Review Specimen Type Sample Site pH Bicarbonate Actual Total CO2 Base Excess O2 Saturation ABG pCO2 ABG pO2 VBG pH VBG pO2 VBG HCO3 VBG Total CO2 VBG O2 Sat (Calc) VBG Base Excess POC Mix VBG pCO2 Pt Tmp O2 Delivery Device POC PEEP Sodium 150 H Potassium 3.4 L Chloride 117 H Carbon Dioxide 27.0 Anion Gap 6 BUN 34 H Creatinine 2.43 H Estim Creat Clear Calc 24.45 Est GFR (MDRD) Af Amer 27 L Est GFR (MDRD) Non-Af 23 L BUN/Creatinine Ratio 14.0 Glucose 365 H Calcium 8.1 L Magnesium 2.1 Total Bilirubin 0.80 Direct Bilirubin 0.21 AST 113 H ALT 84 H Alkaline Phosphatase 205 H Ammonia Total Protein 5.4 L Albumin 2.1 L Globulin 3.3 Urine Color Urine Clarity Urine pH Ur Specific [place] Urine Protein Urine Glucose (UA) Urine Ketones Urine Occult Blood Urine Nitrite Urine Bilirubin Urine Urobilinogen Ur Leukocyte Esterase Urine RBC Urine WBC Ur Squamous Epith Cells Urine Bacteria Urine Mucus Urine Yeast Ur Random Sodium Urine Creatinine POC Glucose 321 H 322 H 01/02/21 01/02/21 01/02/21 07:00 08:16 09:14 WBC RBC Hgb Hct MCV MCH MCHC RDW Std Deviation RDW Coeff of Ana Plt Count MPV Immature Gran % (Auto) Neut % (Auto) Lymph % (Auto) Blair % (Auto) Eos % (Auto) Baso % (Auto) Absolute Neuts (auto) Absolute Lymphs (auto) Nucleated RBC % Diff Path Review Specimen Type Sample Site pH Bicarbonate Actual Total CO2 Base Excess O2 Saturation ABG pCO2 ABG pO2 VBG pH VBG pO2 VBG HCO3 VBG Total CO2 VBG O2 Sat (Calc) VBG Base Excess POC Mix VBG pCO2 Pt Tmp O2 Delivery Device POC PEEP Sodium Potassium Chloride Carbon Dioxide Anion Gap BUN Creatinine Estim Creat Clear Calc Est GFR (MDRD) Af Amer Est GFR (MDRD) Non-Af BUN/Creatinine Ratio Glucose Calcium Magnesium Total Bilirubin Direct Bilirubin AST ALT Alkaline Phosphatase Ammonia Total Protein Albumin Globulin Urine Color Urine Clarity Urine pH Ur Specific [place] Urine Protein Urine Glucose (UA) Urine Ketones Urine Occult Blood Urine Nitrite Urine Bilirubin Urine Urobilinogen Ur Leukocyte Esterase Urine RBC Urine WBC Ur Squamous Epith Cells Urine Bacteria Urine Mucus Urine Yeast Ur Random Sodium Urine Creatinine POC Glucose 266 H 224 H 207 H 01/02/21 01/02/21 01/02/21 10:19 11:40 13:11 WBC RBC Hgb Hct MCV MCH MCHC RDW Std Deviation RDW Coeff of Ana Plt Count MPV Immature Gran % (Auto) Neut % (Auto) Lymph % (Auto) Blair % (Auto) Eos % (Auto) Baso % (Auto) Absolute Neuts (auto) Absolute Lymphs (auto) Nucleated RBC % Diff Path Review Specimen Type Sample Site pH Bicarbonate Actual Total CO2 Base Excess O2 Saturation ABG pCO2 ABG pO2 VBG pH VBG pO2 VBG HCO3 VBG Total CO2 VBG O2 Sat (Calc) VBG Base Excess POC Mix VBG pCO2 Pt Tmp O2 Delivery Device POC PEEP Sodium Potassium Chloride Carbon Dioxide Anion Gap BUN Creatinine Estim Creat Clear Calc Est GFR (MDRD) Af Amer Est GFR (MDRD) Non-Af BUN/Creatinine Ratio Glucose Calcium Magnesium Total Bilirubin Direct Bilirubin AST ALT Alkaline Phosphatase Ammonia Total Protein Albumin Globulin Urine Color Urine Clarity Urine pH Ur Specific [place] Urine Protein Urine Glucose (UA) Urine Ketones Urine Occult Blood Urine Nitrite Urine Bilirubin Urine Urobilinogen Ur Leukocyte Esterase Urine RBC Urine WBC Ur Squamous Epith Cells Urine Bacteria Urine Mucus Urine Yeast Ur Random Sodium Urine Creatinine POC Glucose 216 H 243 H 243 H 01/02/21 01/02/21 01/02/21 14:12 15:37 17:04 WBC RBC Hgb Hct MCV MCH MCHC RDW Std Deviation RDW Coeff of Ana Plt Count MPV Immature Gran % (Auto) Neut % (Auto) Lymph % (Auto) Blair % (Auto) Eos % (Auto) Baso % (Auto) Absolute Neuts (auto) Absolute Lymphs (auto) Nucleated RBC % Diff Path Review Specimen Type Sample Site pH Bicarbonate Actual Total CO2 Base Excess O2 Saturation ABG pCO2 ABG pO2 VBG pH VBG pO2 VBG HCO3 VBG Total CO2 VBG O2 Sat (Calc) VBG Base Excess POC Mix VBG pCO2 Pt Tmp O2 Delivery Device POC PEEP Sodium Potassium Chloride Carbon Dioxide Anion Gap BUN Creatinine Estim Creat Clear Calc Est GFR (MDRD) Af Amer Est GFR (MDRD) Non-Af BUN/Creatinine Ratio Glucose Calcium Magnesium Total Bilirubin Direct Bilirubin AST ALT Alkaline Phosphatase Ammonia Total Protein Albumin Globulin Urine Color Urine Clarity Urine pH Ur Specific [place] Urine Protein Urine Glucose (UA) Urine Ketones Urine Occult Blood Urine Nitrite Urine Bilirubin Urine Urobilinogen Ur Leukocyte Esterase Urine RBC Urine WBC Ur Squamous Epith Cells Urine Bacteria Urine Mucus Urine Yeast Ur Random Sodium Urine Creatinine POC Glucose 224 H 174 H 252 H 01/02/21 01/02/21 01/02/21 18:13 18:35 18:35 WBC RBC Hgb Hct MCV MCH MCHC RDW Std Deviation RDW Coeff of Ana Plt Count MPV Immature Gran % (Auto) Neut % (Auto) Lymph % (Auto) Blair % (Auto) Eos % (Auto) Baso % (Auto) Absolute Neuts (auto) Absolute Lymphs (auto) Nucleated RBC % Diff Path Review Specimen Type Sample Site pH Bicarbonate Actual Total CO2 Base Excess O2 Saturation ABG pCO2 ABG pO2 VBG pH VBG pO2 VBG HCO3 VBG Total CO2 VBG O2 Sat (Calc) VBG Base Excess POC Mix VBG pCO2 Pt Tmp O2 Delivery Device POC PEEP Sodium Potassium Chloride Carbon Dioxide Anion Gap BUN Creatinine Estim Creat Clear Calc Est GFR (MDRD) Af Amer Est GFR (MDRD) Non-Af BUN/Creatinine Ratio Glucose Calcium Magnesium Total Bilirubin Direct Bilirubin AST ALT Alkaline Phosphatase Ammonia Total Protein Albumin Globulin Urine Color Yellow Urine Clarity Cloudy Urine pH 5.0 Ur Specific [place] 1.020 Urine Protein 30 H Urine Glucose (UA) 100 H Urine Ketones 5 H Urine Occult Blood 250 H Urine Nitrite Positive H Urine Bilirubin Negative Urine Urobilinogen Normal Ur Leukocyte Esterase 100 H Urine RBC > 100 SEEN Urine WBC 10-25 SEEN Ur Squamous Epith Cells 0-5 SEEN Urine Bacteria RARE Urine Mucus 0 SEEN Urine Yeast 1+ Ur Random Sodium 12 Urine Creatinine 312.00 POC Glucose 204 H 01/02/21 01/02/21 01/02/21 19:30 20:34 21:33 WBC RBC Hgb Hct MCV MCH MCHC RDW Std Deviation RDW Coeff of Ana Plt Count MPV Immature Gran % (Auto) Neut % (Auto) Lymph % (Auto) [place] % (Auto) Eos % (Auto) Baso % (Auto) Absolute Neuts (auto) Absolute Lymphs (auto) Nucleated RBC % Diff Path Review Specimen Type Sample Site pH Bicarbonate Actual Total CO2 Base Excess O2 Saturation ABG pCO2 ABG pO2 VBG pH VBG pO2 VBG HCO3 VBG Total CO2 VBG O2 Sat (Calc) VBG Base Excess POC Mix VBG pCO2 Pt Tmp O2 Delivery Device POC PEEP Sodium Potassium Chloride Carbon Dioxide Anion Gap BUN Creatinine Estim Creat Clear Calc Est GFR (MDRD) Af Amer Est GFR (MDRD) Non-Af BUN/Creatinine Ratio Glucose Calcium Magnesium Total Bilirubin Direct Bilirubin AST ALT Alkaline Phosphatase Ammonia Total Protein Albumin Globulin Urine Color Urine Clarity Urine pH Ur Specific [place] Urine Protein Urine Glucose (UA) Urine Ketones Urine Occult Blood Urine Nitrite Urine Bilirubin Urine Urobilinogen Ur Leukocyte Esterase Urine RBC Urine WBC Ur Squamous Epith Cells Urine Bacteria Urine Mucus Urine Yeast Ur Random Sodium Urine Creatinine POC Glucose 219 H 194 H 163 H 01/02/21 01/02/21 01/03/21 22:28 23:42 00:31 WBC RBC Hgb Hct MCV MCH MCHC RDW Std Deviation RDW Coeff of Ana Plt Count MPV Immature Gran % (Auto) Neut % (Auto) Lymph % (Auto) [place] % (Auto) Eos % (Auto) Baso % (Auto) Absolute Neuts (auto) Absolute Lymphs (auto) Nucleated RBC % Diff Path Review Specimen Type Sample Site pH Bicarbonate Actual Total CO2 Base Excess O2 Saturation ABG pCO2 ABG pO2 VBG pH VBG pO2 VBG HCO3 VBG Total CO2 VBG O2 Sat (Calc) VBG Base Excess POC Mix VBG pCO2 Pt Tmp O2 Delivery Device POC PEEP Sodium Potassium Chloride Carbon Dioxide Anion Gap BUN Creatinine Estim Creat Clear Calc Est GFR (MDRD) Af Amer Est GFR (MDRD) Non-Af BUN/Creatinine Ratio Glucose Calcium Magnesium Total Bilirubin Direct Bilirubin AST ALT Alkaline Phosphatase Ammonia Total Protein Albumin Globulin Urine Color Urine Clarity Urine pH Ur Specific [place] Urine Protein Urine Glucose (UA) Urine Ketones Urine Occult Blood Urine Nitrite Urine Bilirubin Urine Urobilinogen Ur Leukocyte Esterase Urine RBC Urine WBC Ur Squamous Epith Cells Urine Bacteria Urine Mucus Urine Yeast Ur Random Sodium Urine Creatinine POC Glucose 174 H 140 H 101 01/03/21 01/03/21 01/03/21 02:12 04:00 04:00 WBC 21.8 H RBC 2.66 L Hgb 8.0 L Hct 25.6 L MCV 96.2 MCH 30.1 MCHC 31.3 L D RDW Std Deviation 46.3 H RDW Coeff of Ana 13.2 Plt Count 164 MPV 10.1 Immature Gran % (Auto) 3.200 H Neut % (Auto) 85.3 H Lymph % (Auto) 6.5 L [place] % (Auto) 4.7 Eos % (Auto) 0.1 Baso % (Auto) 0.2 Absolute Neuts (auto) 18.6 H Absolute Lymphs (auto) 1.42 Nucleated RBC % 0 Diff Path Review Specimen Type Sample Site pH Bicarbonate Actual Total CO2 Base Excess O2 Saturation ABG pCO2 ABG pO2 VBG pH VBG pO2 VBG HCO3 VBG Total CO2 VBG O2 Sat (Calc) VBG Base Excess POC Mix VBG pCO2 Pt Tmp O2 Delivery Device POC PEEP Sodium 143 Potassium 3.8 Chloride 113 H Carbon Dioxide 23.0 Anion Gap 7 BUN 37 H Creatinine 1.91 H Estim Creat Clear Calc 31.10 Est GFR (MDRD) Af Amer 36 L Est GFR (MDRD) Non-Af 30 L BUN/Creatinine Ratio 19.4 Glucose 342 H Calcium 7.7 L Magnesium Total Bilirubin 0.80 Direct Bilirubin 0.21 AST 84 H ALT 66 H Alkaline Phosphatase 186 H Ammonia Total Protein 5.6 L Albumin 2.1 L Globulin 3.5 Urine Color Urine Clarity Urine pH Ur Specific [place] Urine Protein Urine Glucose (UA) Urine Ketones Urine Occult Blood Urine Nitrite Urine Bilirubin Urine Urobilinogen Ur Leukocyte Esterase Urine RBC Urine WBC Ur Squamous Epith Cells Urine Bacteria Urine Mucus Urine Yeast Ur Random Sodium Urine Creatinine POC Glucose 222 H Microbiology 01/02/21 10:00 Stool C. difficile DNA Amplification - Final 12/31/20 22:55 Sputum, Induced/Lukens Gram Stain - Final 12/31/20 22:55 Sputum, Induced/Lukens Respiratory Culture - Preliminary Streptococcus group B 12/31/20 20:20 Blood Culture (Wb) - Central Line Blood Culture - Preliminary 12/31/20 22:40 Mucosa - Nasopharyngeal Respiratory Panel (PCR) - Final Clinical Impression(s) from Imaging Studies Chest X-Ray 12/31/20 16:25 IMPRESSION: 1. Interval placement of endotracheal tube with tip approximately 3 7 m above the kenisha. 2. Interval placement of nasogastric tube with the tip below the diaphragm. 3. Right-sided pneumonia. Electronically Signed: Akash James MD at 17:23 EST Tel , Service support , KUB X-Ray 12/31/20 18:25 IMPRESSION: Nasogastric tube is coiled in the fundus of the stomach. Electronically Signed: Dariel Eid MD at 19:19 EST , Service support , Chest X-Ray 12/31/20 20:00 Brain MRI 01/02/21 06:34 IMPRESSION: There is signal abnormality noted on diffusion-weighted images and on FLAIR images in the cortex of the posterior aspect of the right and left cingulate gyri and right and left temporal lobes suggesting hypoxic ischemic injury. There is air-fluid level in the left maxillary sinus suggesting sinusitis. Electronically Signed: Anushka Stovall MD at 12:34 EST Tel , Service support , Renal Ultrasound 01/02/21 13:19 IMPRESSION: Normal ultrasound of the kidneys and urinary bladder. Electronically Signed: Dariel Eid MD at 19:02 EST , Service support , Medical Necessity - Tobacco Use Smoking Status: Unknown if ever smoked Assessment/Plan All Active Problems History of coronary artery stent placement (Acute ~12/31/20) Cardiac arrest (Acute) STEMI (ST elevation myocardial infarction) (Acute) Ventricular fibrillation (Acute) Acute hypoxic respiratory failure (Acute) RECOMMENDATIONS: 1. Continue patient on assist control mode of mechanical ventilation and wean FiO2 to maintain saturations at or above 90%. 2. Continue antimicrobials as ordered. 3. Stop D5W infusion. 4. Transition to twice daily Lantus and sliding scale insulin coverage. 5. Continue tube feeds as tolerated. 6. Continue appropriate DVT and GI prophylaxis. 7. Over concerns for nonconvulsive status, and per patient family wishes, consider transfer to tertiary care facility. 8. Start scheduled Keppra. IMPRESSIONS: 1. Acute hypoxemic respiratory failure status post cardiac arrest The patient does appear to have multifocal airspace disease in the right hemithorax concerning for possible aspiration in the setting of cardiac arrest. Accordingly, she will be continued on broad-spectrum antimicrobials, pending further infectious work-up. Plan to continue to wean FiO2 and PEEP as tolerated to maintain saturations at or above 90%. The patient will be continued on tube feeds as tolerated. 2. Inferior wall myocardial infarction/STEMI The patient did undergo angioplasty and stenting to her RCA. Ejection fraction was reduced at 35 to 40% per documentation. Plan to continue supportive measures per cardiology recommendations. 3. Septic shock Improved. Clinical concern that the patient may also have a cardiac component to her shock state as well. Nevertheless, I do strongly suspect that she likely has an aspiration pneumonia. As noted above, the patient will be continued on broad-spectrum antimicrobials. Vasopressor support has been weaned at this time. 4. Encephalopathy Likely anoxic in etiology. The patient did have a reported 30-minute downtime prior to return of spontaneous circulation. The patient remains off of all form of sedation and remains neurologically unchanged. MRI did reveal findings concerning for anoxic brain injury. EEG was concerning for possible nonconvulsive status. The patient was subsequently loaded with Keppra. 5. Acute kidney injury Likely prerenal in etiology with likely a component of ischemic ATN due to hemodynamic instability in the setting of the patient's acute presentation. We will continue to monitor urine output for now. There is no current indication for renal replacement therapy. 6. Elevated transaminases Unclear baseline levels. The mild elevations could also represent an acute reaction to the patient's cardiac arrest and subsequent hemodynamic instability. We will continue to monitor accordingly. 7. Diabetes mellitus Continue basal and sliding scale insulin coverage as ordered. TIME: 37 minutes of critical care time, independent of procedures, was spent addressing the patient's acute hypoxemic respiratory failure, status post cardiac arrest, septic shock, encephalopathy, acute kidney injury, review of all data and collaboration with the care team. ([id number]) [id number] Critical care first hour
--- NOTE | 2021-01-03 07:22 | PCM.PN.HOSP ---
Patient Problems: Active and Suspected Problems Cardiac arrest (Acute) STEMI (ST elevation myocardial infarction) (Acute) Ventricular fibrillation (Acute) Acute hypoxic respiratory failure (Acute) Reason for Visit: Acute ST segment elevation SC Acute encephalopathy?suspected anoxic encephalopathy Subjective: Patient is a 50-year-old lady who had a cardiac arrest found to be in V. fib resuscitated using ACLS protocol brought to the emergency department EKG demonstrated inferior ST segment elevation SC patient underwent emergency left catheterization which revealed a 99% stenosis of an RCA lesion which was treated with PCI/JOSE J. She was also found to have a 70 to 80% stenosis in the proximal and mid LAD ejection fraction found to be 35 to 40% 01/02/2021; patient remains on the vent unresponsive without any sedation. Patient kidney function continues to worsen. Sodium levels up to 150. Patient scheduled to undergo EEG as well as MRI for evaluation of suspected anoxic encephalopathy 01/03/2021; MRI obtained the day prior demonstrated signal abnormality noted on diffusion-weighted images and on FLAIR images in the cortex of the posterior aspect of the right and left cingulate gyri and right and left temporal lobes suggesting hypoxic ischemic injury. 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 Patient started on Keppra discussions held with family and neurology plan is for patient to be transferred to a facility with neuro ICU capabilities Objective: GENERAL: on the vent without sedation HEENT: Atraumatic; EYES; Anicteric, Normal Conjunctiva NECK; supple, normal thyroid, RESPIRATORY: Diminished to auscultation CARDIOVASCULAR: Regular S1 S2, GI: soft, normoactive bowel sounds, : No Renal angle tenderness; EXTREMITIES: No edema, no clubbing, MUSCULOSKELETAL: no muscle waisting NEURO:Unresponsive on the vent without sedation SKIN: No Rash Vitals/I&O's: Vital Signs Temp Pulse Resp BP Pulse Ox 100.5 F H 124 H 16 116/64 94 01/03/21 07:00 01/03/21 07:00 01/03/21 07:00 01/03/21 07:00 01/03/21 07:00 Oxygen Delivery Method Mechanical Ventilator Weight: 69 kg Body Mass Index (BMI) 24.1 Finger Stick Blood Glucose 101 Intake and Output for Last 24 Hours 01/01/21 01/02/21 01/03/21 23:59 23:59 23:59 Intake Total 3588.09 / 3690.44 2846.72 / 2846.72 1676.6 / 1676.6 Output Total 2360 / 2360 420 / 420 200 / 200 Balance 1228.09 / 1330.44 2426.72 / 2426.72 1476.6 / 1476.6 Microbiology Past 72 Hours 01/02/21 10:00 Stool C. difficile DNA Amplification - Final 12/31/20 22:55 Sputum, Induced/Lukens Gram Stain - Final 12/31/20 22:55 Sputum, Induced/Lukens Respiratory Culture - Preliminary Streptococcus group B 12/31/20 20:20 Blood Culture (Wb) - Central Line Blood Culture - Preliminary 12/31/20 22:40 Mucosa - Nasopharyngeal Respiratory Panel (PCR) - Final 12/31/20 16:40 Urine Catheter - De Jesus Legionella Antigen - Final 12/31/20 16:40 Urine Catheter - De Jesus Streptococcus pneumoniae Antigen (M - Final Laboratory Results 01/02/21 07:00: POC Glucose 266 H 01/02/21 08:16: POC Glucose 224 H 01/02/21 09:14: POC Glucose 207 H 01/02/21 10:19: POC Glucose 216 H 01/02/21 11:40: POC Glucose 243 H 01/02/21 13:11: POC Glucose 243 H 01/02/21 14:12: POC Glucose 224 H 01/02/21 15:37: POC Glucose 174 H 01/02/21 17:04: POC Glucose 252 H 01/02/21 18:13: POC Glucose 204 H 01/02/21 18:35: Urine Color Yellow, Urine Clarity Cloudy, Urine pH 5.0, Ur Specific [place] 1.020, Urine Protein 30 H, Urine Glucose (UA) 100 H, Urine Ketones 5 H, Urine Occult Blood 250 H, Urine Nitrite Positive H, Urine Bilirubin Negative, Urine Urobilinogen Normal, Ur Leukocyte Esterase 100 H, Urine RBC > 100 SEEN, Urine WBC 10-25 SEEN, Ur Squamous Epith Cells 0-5 SEEN, Urine Bacteria RARE, Urine Mucus 0 SEEN, Urine Yeast 1+ 01/02/21 18:35: Ur Random Sodium 12, Urine Creatinine 312.00 01/02/21 19:30: POC Glucose 219 H 01/02/21 20:34: POC Glucose 194 H 01/02/21 21:33: POC Glucose 163 H 01/02/21 22:28: POC Glucose 174 H 01/02/21 23:42: POC Glucose 140 H 01/03/21 00:31: POC Glucose 101 01/03/21 02:12: POC Glucose 222 H 01/03/21 04:00: WBC 21.8 H, RBC 2.66 L, Hgb 8.0 L, Hct 25.6 L, MCV 96.2, MCH 30.1, MCHC 31.3 L D, RDW Std Deviation 46.3 H, RDW Coeff of Ana 13.2, Plt Count 164, MPV 10.1, Immature Gran % (Auto) 3.200 H, Neut % (Auto) 85.3 H, Lymph % (Auto) 6.5 L, [place] % (Auto) 4.7, Eos % (Auto) 0.1, Baso % (Auto) 0.2, Absolute Neuts (auto) 18.6 H, Absolute Lymphs (auto) 1.42, Nucleated RBC % 0 01/03/21 04:00: Sodium 143, Potassium 3.8, Chloride 113 H, Carbon Dioxide 23.0, Anion Gap 7, BUN 37 H, Creatinine 1.91 H, Estim Creat Clear Calc 31.10, Est GFR (MDRD) Af Amer 36 L, Est GFR (MDRD) Non-Af 30 L, BUN/Creatinine Ratio 19.4, Glucose 342 H, Calcium 7.7 L, Total Bilirubin 0.80, Direct Bilirubin 0.21, AST 84 H, ALT 66 H, Alkaline Phosphatase 186 H, Total Protein 5.6 L, Albumin 2.1 L, Globulin 3.5 Current Medications Acetaminophen (Acetaminophen 650 Mg/20 Ml Udc) 650 mg GT Q6H PRN PRN PRN Reason: Pain Score 1-10/Temp > 100.7 F Last Admin: 01/03/21 03:57 Dose: 650 mg Documented by: Albuterol/Ipratropium (Ipratropium/Albuterol Sulfate 3 Ml Ampul.Neb) 3 ml INHALATION Q4H.RT PRN PRN Reason: wheezing Aspirin (Aspirin 81 Mg Tab.Chew) 81 mg GT DAILY@0800 [facility] Last Admin: 01/02/21 09:20 Dose: 81 mg Documented by: Atorvastatin Calcium (Atorvastatin Calcium 40 Mg Tablet) 40 mg GT QHS [facility] Last Admin: 01/02/21 20:02 Dose: 40 mg Documented by: Atropine Sulfate (Atropine Sulfate 1 Mg/10 Ml Syringe) 0.5 mg IV UD PRN PRN Reason: HR <50 bpm Chlorhexidine Gluconate (Chlorhexidine 15 Ml) 15 ml PO BID [facility] Last Admin: 01/02/21 20:01 Dose: 15 ml Documented by: Dextrose (Dextrose 50%-Water 25 Gm/50 Ml Disp.Syrin) 0 gm IV X1 PRN; Protocol PRN Reason: Hypoglycemia Protocol Heparin Sodium (Beef Lung) (Heparin Lock 500 Unit/5 Ml In 10 Ml Syringe) 500 unit IV UD PRN PRN Reason: HEPARIN FLUSH Heparin Sodium (Porcine) (Heparin Injection (Vial) 5,000 Unit/Ml Vial) 5,000 unit SC Q8 [facility] Last Admin: 01/03/21 05:32 Dose: 5,000 unit Documented by: Sodium Chloride () 250 mls @ 15 mls/hr IV .[id number] PRN PRN Reason: Saline Flush Sodium Chloride () 250 mls @ 15 mls/hr IV .[id number] PRN PRN Reason: Additional IVPB Infusion Piperacillin Sod/Tazobactam (Sod 3.375 gm/ Sodium Chloride) 50 mls @ 12.5 mls/hr IV Q8 [facility] Last Admin: 01/03/21 05:32 Dose: 12.5 mls/hr Documented by: Norepinephrine Bitartrate 8 mg (/ Sodium Chloride) 250 mls @ 9.375 mls/hr CONT INF .[id number] [facility]; Protocol Last Admin: 01/02/21 22:31 Dose: Not Given Documented by: Pantoprazole Sodium 40 mg/ (Sodium Chloride) 110 mls @ 330 mls/hr IV Q12 [facility] Last Infusion: 01/02/21 20:22 Dose: Infused Documented by: Enteral Nutritional Formula (Vital Af 1.2 Raffi Liquid) 1,000 mls @ 60 mls/hr GT .[id number] [facility] Last Admin: 01/03/21 04:04 Dose: 60 mls/hr Documented by: Insulin Human Lispro 100 unit/ (Sodium Chloride) 100 mls @ 6.9 mls/hr CONT INF .[id number] [facility]; Protocol Last Titration: 01/03/21 06:48 Dose: 0.1 u/kg/hr, 6.9 mls/hr Documented by: Prochlorperazine Edisylate (Prochlorperazine 10 Mg/2 Ml Vial) 5 mg IV Q4H PRN PRN PRN Reason: Breakthrough Nausea/Vomiting Senna/Docusate Sodium (Senna/Docusate Sodium 1 Tablet) 1 tablet PO BID [facility] Last Admin: 01/02/21 20:00 Dose: 1 tablet Documented by: Sodium Chloride (0.9% Saline Lock 10 Ml Syringe) 10 - 40 ml IV UD PRN PRN Reason: SALINE FLUSH Last Admin: 01/03/21 03:57 Dose: 40 ml Documented by: Ticagrelor (Ticagrelor 90 Mg Tablet) 90 mg GT BID [facility] Last Admin: 01/02/21 20:00 Dose: 90 mg Documented by: STROKE Vital Signs/Narrative: Vital Signs Temp Pulse Resp BP Pulse Ox 01/03/21 07:00 100.5 F H 124 H 21 H 116/64 94 01/03/21 06:00 121 H 15 122/64 H 95 01/03/21 05:16 120 H 16 96 01/03/21 05:00 100.3 F H 122 H 17 125/65 H 94 01/03/21 04:00 100.2 F H 128 H 19 H 147/80 H 93 01/03/21 03:43 123 H Medical Necessity - Tobacco Use Smoking Status: Unknown if ever smoked Assessment/Plan All Active Problems History of coronary artery stent placement (Acute ~12/31/20) Cardiac arrest (Acute) STEMI (ST elevation myocardial infarction) (Acute) Ventricular fibrillation (Acute) Acute hypoxic respiratory failure (Acute) Patient is a 50-year-old lady who had a cardiac arrest found to be in V. fib resuscitated using ACLS protocol brought to the emergency department EKG demonstrated inferior ST segment elevation SC patient underwent emergency left catheterization which revealed a 99% stenosis of an RCA lesion which was treated with PCI/JOSE J. She was also found to have a 70 to 80% stenosis in the proximal and mid LAD ejection fraction found to be 35 to 40% 1. Acute inferior ST segment elevation SC -Patient presented with cardiac arrest found to be in V. fib resuscitated using ACLS protocol brought to the emergency department EKG demonstrated inferior ST segment elevation SC patient underwent emergency left catheterization which revealed a 99% stenosis of an RCA lesion which was treated with PCI/JOSE J. She was also found to have a 70 to 80% stenosis in the proximal and mid LAD ejection fraction found to be 35 to 40% 2. Acute hypoxic respiratory failure -Following cardiopulmonary arrest and acute inferior ST SC. Patient was intubated admitted to the intensive care unit management deferred to housing specialist 01/02/2021; patient remains on the vent unresponsive without any sedation. Patient kidney function continues to worsen. Sodium levels up to 150. Patient scheduled to undergo EEG as well as MRI for evaluation of suspected anoxic encephalopathy 3. Acute encephalopathy ?01/02/2021 suspected anoxic encephalopathy from prolonged CPR. Patient scheduled to undergo MRI and EEG -01/03/2021; MRI obtained the day prior demonstrated signal abnormality noted on diffusion-weighted images and on FLAIR images in the cortex of the posterior aspect of the right and left cingulate gyri and right and left temporal lobes suggesting hypoxic ischemic injury. 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 Patient started on Keppra discussions held with family and neurology plan is for patient to be transferred to a facility with neuro ICU capabilities 4. Cardiogenic shock -Patient is on Levophed and vasopressin 5. Acute kidney injury ?Following hypotension after patient's acute ST segment elevation SC -01/02/2021 kidney function continues to worsen consult placed to nephrology 6. Acute transaminitis -Secondary to shock liver following patient cardiopulmonary arrest 7. Hyponatremia ?Patient started on D5W with consultation placed to nephrology. Ordered serial BMPs 8. Cardiopulmonary arrest -Successfully resuscitated using ACLS protocol with ROSC 9. Diabetes mellitus type II -01/02/2021; patient has been placed on long-acting insulin discontinued in view of persistent hypoglycemia subsequently started on insulin drip 10. DVT prophylaxis ?Heparin Clinical Impression(s) from Imaging Studies Brain MRI 01/02/21 06:34 IMPRESSION: There is signal abnormality noted on diffusion-weighted images and on FLAIR images in the cortex of the posterior aspect of the right and left cingulate gyri and right and left temporal lobes suggesting hypoxic ischemic injury. There is air-fluid level in the left maxillary sinus suggesting sinusitis. Electronically Signed: Anushka Stovall MD at 12:34 EST Tel , Service support , Renal Ultrasound 01/02/21 13:19 IMPRESSION: Normal ultrasound of the kidneys and urinary bladder. Electronically Signed: Dariel Eid MD at 19:02 EST , Service support , [facility] E&M: [id number] [facility] Hosp L3
[2021-01-03 08:11] LABS: Bedside Glucose 394 mg/dL (70-110)
[2021-01-03 08:11] LABS: Bedside Glucose 385 mg/dL (70-110)
[2021-01-03 08:11] LABS: Bedside Glucose 436 mg/dL (70-110)
[2021-01-03 09:30] LABS: Bedside Glucose 345 mg/dL (70-110)
--- NOTE | 2021-01-03 10:00 | EKG12_ITS ---
Test Reason : AM EKG Blood Pressure : / mmHG Vent. Rate : 122 BPM Atrial Rate : 244 BPM P-R Int : 000 ms QRS Dur : 080 ms QT Int : 324 ms P-R-T Axes : 064 057 103 degrees QTc Int : 461 ms Sinus tachycardia Nonspecific ST and T wave abnormality Abnormal ECG When compared with ECG of 02-JAN-2021 04:33, MANUAL COMPARISON REQUIRED, DATA IS UNCONFIRMED Confirmed by MEGAN BARRAGAN, ZACHARIAH ([id number]), newspaper copy editor GAUDENCIO HERZOG ([id number]) on 01/06/2021 12:37:34 P M Referred By: Rob Gracia Confirmed By:GARY GUZMAN MD
--- NOTE | 2021-01-03 10:03 | CASEMGMT ---
Gray Note. [facility] using [facility] supermed website: [place]: [facility], [facility], [facility], [facility]: [facility], [facility], [facility]: [facility], [facility] [place], [place]: [facility]: [facility]
[2021-01-03 10:11] LABS: Bedside Glucose 306 mg/dL (70-110)
--- NOTE | 2021-01-03 10:27 | CASEMGMT ---
Transfer Note. [facility] facilities for Tertiary care using M[employer] supermed website: [place]: [facility], [facility], [facility], [facility]: [facility], [facility], [facility]: [facility], [place], [place]: [facility]: [facility]
--- NOTE | 2021-01-03 11:14 | DCINST_ITS ---
- Discharge Diagnoses Current Active Problems: Current Active and Chronic Problems Cardiac arrest (Acute) STEMI (ST elevation myocardial infarction) (Acute) Ventricular fibrillation (Acute) Acute hypoxic respiratory failure (Acute) Allergies/Adverse Reactions: Allergies No Known Allergies Allergy (Verified 12/31/20 14:41) Orders to be completed after discharge: Phase II, Outpatient Cardiac Rehab Location: None Selected Primary Care Physician: Monroe Dozier MD [Primary Care Provider] - Test Results: Test results from this visit will be discussed in further detail at your follow- up appointment, if applicable. Proposed Discharge Date: 01/03/21
--- NOTE | 2021-01-03 11:19 | DS.PCM_ITS ---
Discharge Date and Diagnosis - Problem List Patient Problems: Active and Suspected Problems Cardiac arrest (Acute) STEMI (ST elevation myocardial infarction) (Acute) Ventricular fibrillation (Acute) Acute hypoxic respiratory failure (Acute) Date of Admission: 12/31/20 Date of Discharge: 01/03/21 - Primary Discharge Diagnosis Acute Problems: Active Problems Cardiac arrest (Acute) STEMI (ST elevation myocardial infarction) (Acute) Ventricular fibrillation (Acute) Acute hypoxic respiratory failure (Acute) Hospital Course and Treatment Imaging Results: Clinical Impression(s) from Imaging Studies Chest X-Ray 12/31/20 16:25 IMPRESSION: 1. Interval placement of endotracheal tube with tip approximately 3 7 m above the kenisha. 2. Interval placement of nasogastric tube with the tip below the diaphragm. 3. Right-sided pneumonia. Electronically Signed: Akash James MD at 17:23 EST Tel , Service support , KUB X-Ray 12/31/20 18:25 IMPRESSION: Nasogastric tube is coiled in the fundus of the stomach. Electronically Signed: Dariel Eid MD at 19:19 EST , Service support , Chest X-Ray 12/31/20 20:00 Brain MRI 01/02/21 06:34 IMPRESSION: There is signal abnormality noted on diffusion-weighted images and on FLAIR images in the cortex of the posterior aspect of the right and left cingulate gyri and right and left temporal lobes suggesting hypoxic ischemic injury. There is air-fluid level in the left maxillary sinus suggesting sinusitis. Electronically Signed: Anushka Stovall MD at 12:34 EST Tel , Service support , Renal Ultrasound 01/02/21 13:19 IMPRESSION: Normal ultrasound of the kidneys and urinary bladder. Electronically Signed: Dariel Eid MD at 19:02 EST , Service support , Summary of Care Provided: Patient is a 50-year-old lady who had a cardiac arrest found to be in V. fib resuscitated using ACLS protocol brought to the emergency department EKG demonstrated inferior ST segment elevation PA patient underwent emergency left catheterization which revealed a 99% stenosis of an RCA lesion which was treated with PCI/JOSE J. She was also found to have a 70 to 80% stenosis in the proximal and mid LAD ejection fraction found to be 35 to 40% 1. Acute inferior ST segment elevation PA -Patient presented with cardiac arrest found to be in V. fib resuscitated using ACLS protocol brought to the emergency department EKG demonstrated inferior ST segment elevation PA patient underwent emergency left catheterization which revealed a 99% stenosis of an RCA lesion which was treated with PCI/JOSE J. She was also found to have a 70 to 80% stenosis in the proximal and mid LAD ejection fraction found to be 35 to 40% 2. Acute hypoxic respiratory failure -Following cardiopulmonary arrest and acute inferior ST PA. Patient was intubated admitted to the intensive care unit management deferred to booth manager 01/02/2021; patient remains on the vent unresponsive without any sedation. Patient kidney function continues to worsen. Sodium levels up to 150. Patient scheduled to undergo EEG as well as MRI for evaluation of suspected anoxic encephalopathy 3. Acute encephalopathy ?01/02/2021 suspected anoxic encephalopathy from prolonged CPR. Patient scheduled to undergo MRI and EEG -01/03/2021; MRI obtained the day prior demonstrated signal abnormality noted on diffusion-weighted images and on FLAIR images in the cortex of the posterior aspect of the right and left cingulate gyri and right and left temporal lobes suggesting hypoxic ischemic injury. 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 Patient started on Keppra discussions held with family and neurology plan is for patient to be transferred to a facility with neuro ICU capabilities -Call was placed patient was accepted for transfer to [facility] neuro ICU 4. Cardiogenic shock -Patient is on Levophed and vasopressin 5. Acute kidney injury ?Following hypotension after patient's acute ST segment elevation PA -01/02/2021 kidney function continues to worsen consult placed to nephrology -01/03/2020 Creatinine 1.91 patient was seen in consultation by nephrology the day prior 6. Acute transaminitis -Secondary to shock liver following patient cardiopulmonary arrest 7. Hyponatremia ?Patient started on D5W with consultation placed to nephrology. Ordered serial BMPs -DM level as of 01/03/2021 143 8. Cardiopulmonary arrest -Successfully resuscitated using ACLS protocol with ROSC 9. Diabetes mellitus type II -01/02/2021; patient has been placed on long-acting insulin discontinued in view of persistent hypoglycemia subsequently started on insulin drip 10. DVT prophylaxis ?Heparin Patient Problems: Active and Suspected Problems Cardiac arrest (Acute) STEMI (ST elevation myocardial infarction) (Acute) Ventricular fibrillation (Acute) Acute hypoxic respiratory failure (Acute) Objective: GENERAL: on the vent without sedation HEENT: Atraumatic; EYES; Anicteric, NECK; supple, normal thyroid, RESPIRATORY: Diminished to auscultation CARDIOVASCULAR: Regular S1 S2, tachycardic GI: soft, normoactive bowel sounds, : No Renal angle tenderness; NEURO:Unresponsive on the vent without sedation SKIN: No Rash - Physical Exam Vitals/I&O's: Vital Signs Temp Pulse Resp BP Pulse Ox 100.5 F H 127 H 20 H 116/64 97 01/03/21 07:00 01/03/21 10:59 01/03/21 10:59 01/03/21 07:00 01/03/21 10:59 Oxygen Delivery Method Mechanical Ventilator Weight: 69 kg Body Mass Index (BMI) 24.1 Finger Stick Blood Glucose 224 Intake and Output for Last 24 Hours 01/01/21 01/02/21 01/03/21 23:59 23:59 23:59 Intake Total 3588.09 / 3690.44 2846.72 / 2846.72 1764.76 / 1764.76 Output Total 2360 / 2360 420 / 420 200 / 200 Balance 1228.09 / 1330.44 2426.72 / 2426.72 1564.76 / 1564.76 Microbiology Past 72 Hours 12/31/20 22:55 Sputum, Induced/Lukens Gram Stain - Final 12/31/20 22:55 Sputum, Induced/Lukens Respiratory Culture - Final Streptococcus agalactiae (B) Presumptive C albicans Mixed Anh 12/31/20 20:20 Blood Culture (Wb) - Central Line Blood Culture - Preliminary Gram negative tristen 01/02/21 10:00 Stool C. difficile DNA Amplification - Final 12/31/20 22:40 Mucosa - Nasopharyngeal Respiratory Panel (PCR) - Final 12/31/20 16:40 Urine Catheter - De Jesus Legionella Antigen - Final 12/31/20 16:40 Urine Catheter - De Jesus Streptococcus pneumoniae Antigen (M - Final Laboratory Results 01/02/21 10:19: POC Glucose 216 H 01/02/21 11:40: POC Glucose 243 H 01/02/21 13:11: POC Glucose 243 H 01/02/21 14:12: POC Glucose 224 H 01/02/21 15:37: POC Glucose 174 H 01/02/21 17:04: POC Glucose 252 H 01/02/21 18:13: POC Glucose 204 H 01/02/21 18:35: Urine Color Yellow, Urine Clarity Cloudy, Urine pH 5.0, Ur Specific [place] 1.020, Urine Protein 30 H, Urine Glucose (UA) 100 H, Urine Ketones 5 H, Urine Occult Blood 250 H, Urine Nitrite Positive H, Urine Bilirubin Negative, Urine Urobilinogen Normal, Ur Leukocyte Esterase 100 H, Urine RBC > 100 SEEN, Urine WBC 10-25 SEEN, Ur Squamous Epith Cells 0-5 SEEN, Urine Bacteria RARE, Urine Mucus 0 SEEN, Urine Yeast 1+ 01/02/21 18:35: Ur Random Sodium 12, Urine Creatinine 312.00 01/02/21 19:30: POC Glucose 219 H 01/02/21 20:34: POC Glucose 194 H 01/02/21 21:33: POC Glucose 163 H 01/02/21 22:28: POC Glucose 174 H 01/02/21 23:42: POC Glucose 140 H 01/03/21 00:31: POC Glucose 101 01/03/21 02:12: POC Glucose 222 H 01/03/21 04:00: WBC 21.8 H, RBC 2.66 L, Hgb 8.0 L, Hct 25.6 L, MCV 96.2, MCH 30.1, MCHC 31.3 L D, RDW Std Deviation 46.3 H, RDW Coeff of Ana 13.2, Plt Count 164, MPV 10.1, Immature Gran % (Auto) 3.200 H, Neut % (Auto) 85.3 H, Lymph % (Auto) 6.5 L, [place] % (Auto) 4.7, Eos % (Auto) 0.1, Baso % (Auto) 0.2, Absolute Neuts (auto) 18.6 H, Absolute Lymphs (auto) 1.42, Nucleated RBC % 0 01/03/21 04:00: Sodium 143, Potassium 3.8, Chloride 113 H, Carbon Dioxide 23.0, Anion Gap 7, BUN 37 H, Creatinine 1.91 H, Estim Creat Clear Calc 31.10, Est GFR (MDRD) Af Amer 36 L, Est GFR (MDRD) Non-Af 30 L, BUN/Creatinine Ratio 19.4, Glucose 342 H, Calcium 7.7 L, Total Bilirubin 0.80, Direct Bilirubin 0.21, AST 8 4 H, ALT 66 H, Alkaline Phosphatase 186 H, Total Protein 5.6 L, Albumin 2.1 L, Globulin 3.5 01/03/21 05:37: POC Glucose 436 H 01/03/21 07:04: POC Glucose 385 H 01/03/21 08:05: POC Glucose 394 H 01/03/21 08:53: POC Glucose 345 H 01/03/21 09:56: POC Glucose 306 H Current Medications Acetaminophen (Acetaminophen 650 Mg/20 Ml Udc) 650 mg GT Q6H PRN PRN PRN Reason: Pain Score 1-10/Temp > 100.7 F Last Admin: 01/03/21 03:57 Dose: 650 mg Documented by: Albuterol/Ipratropium (Ipratropium/Albuterol Sulfate 3 Ml Ampul.Neb) 3 ml INHALATION Q4H.RT PRN PRN Reason: wheezing Aspirin (Aspirin 81 Mg Tab.Chew) 81 mg GT DAILY@0800 [facility] Last Admin: 01/02/21 09:20 Dose: 81 mg Documented by: Atorvastatin Calcium (Atorvastatin Calcium 40 Mg Tablet) 40 mg GT QHS [facility] Last Admin: 01/02/21 20:02 Dose: 40 mg Documented by: Atropine Sulfate (Atropine Sulfate 1 Mg/10 Ml Syringe) 0.5 mg IV UD PRN PRN Reason: HR <50 bpm Chlorhexidine Gluconate (Chlorhexidine 15 Ml) 15 ml PO BID [facility] Last Admin: 01/02/21 20:01 Dose: 15 ml Documented by: Dextrose (Dextrose 50%-Water 25 Gm/50 Ml Disp.Syrin) 0 gm IV X1 PRN; Protocol PRN Reason: Hypoglycemia Protocol Heparin Sodium (Beef Lung) (Heparin Lock 500 Unit/5 Ml In 10 Ml Syringe) 500 u nit IV UD PRN PRN Reason: HEPARIN FLUSH Heparin Sodium (Porcine) (Heparin Injection (Vial) 5,000 Unit/Ml Vial) 5,000 unit SC Q8 [facility] Last Admin: 01/03/21 05:32 Dose: 5,000 unit Documented by: Sodium Chloride () 250 mls @ 15 mls/hr IV .[id number] PRN PRN Reason: Saline Flush Sodium Chloride () 250 mls @ 15 mls/hr IV .[id number] PRN PRN Reason: Additional IVPB Infusion Piperacillin Sod/Tazobactam (Sod 3.375 gm/ Sodium Chloride) 50 mls @ 12.5 mls/hr IV Q8 [facility] Last Infusion: 01/03/21 09:32 Dose: Infused Documented by: Norepinephrine Bitartrate 8 mg (/ Sodium Chloride) 250 mls @ 9.375 mls/hr CONT INF .[id number] [facility]; Protocol Last Admin: 01/02/21 22:31 Dose: Not Given Documented by: Pantoprazole Sodium 40 mg/ (Sodium Chloride) 110 mls @ 330 mls/hr IV Q12 [facility] Last Infusion: 01/02/21 20:22 Dose: Infused Documented by: Enteral Nutritional Formula (Vital Af 1.2 Raffi Liquid) 1,000 mls @ 60 mls/hr GT .[id number] [facility] Last Admin: 01/03/21 04:04 Dose: 60 mls/hr Documented by: Insulin Glargine (Insulin Glargine 100 Units/Ml Pen) 60 units SC BID [facility] Insulin Human Lispro (Insulin Lispro 100 Unit/Ml Insuln.Pen) 0 unit SC Q4 [facility]; Protocol Levetiracetam (Levetiracetam Oral Solution 500 Mg/5 Ml) 2,000 mg GT BID [facility] Prochlorperazine Edisylate (Prochlorperazine 10 Mg/2 Ml Vial) 5 mg IV Q4H PRN PRN PRN Reason: Breakthrough Nausea/Vomiting Senna/Docusate Sodium (Senna/Docusate Sodium 1 Tablet) 1 tablet PO BID PRN PRN Reason: CONSTIPATION Sodium Chloride (0.9% Saline Lock 10 Ml Syringe) 10 - 40 ml IV UD PRN PRN Reason: SALINE FLUSH Last Admin: 01/03/21 03:57 Dose: 40 ml Documented by: Ticagrelor (Ticagrelor 90 Mg Tablet) 90 mg GT BID [facility] Last Admin: 01/02/21 20:00 Dose: 90 mg Documented by: Other Amb Orders: Phase II, Outpatient Cardiac Rehab Location: None Selected Primary Care Physician: Monroe Dozier MD [Primary Care Provider] - Disposition: [facility] Minutes spent on discharge:: 50 Patient Condition:: Critical Medical Necessity - Tobacco Use Smoking Status: Unknown if ever smoked Meaningful Use Info Meaningful Use Diagnoses (Choose all that apply): AMI - AMI/Post PCI/Angioplasty Aspirin given w/in 24hrs of arrival?: Yes ASA at discharge?: Yes Antiplatelet Therapy at Discharge:: Yes Statins at discharge?: Yes Marcio/ARB at discharge?: No Reason Marcio/ARB not ordered:: Hypotension Beta Zee at discharge?: No Reason Beta Zee not ordered:: Hypotension Done w/ Acute PA measure.: Yes Documented LVEF (%): 35 Inpatient E&M: [id number] Disch Hosp
[2021-01-03 11:26] LABS: Bedside Glucose 224 mg/dL (70-110)
[2021-01-03] MEDS: Chlorhexidine 15 ML PO (11:34)
[2021-01-03] MEDS: TICAGRELOR 90 MG TABLET GT (11:34)
[2021-01-03] MEDS: Aspirin 81 MG TAB.CHEW GT (11:34)
[2021-01-03] MEDS: levETIRAcetam Oral Solution 500 MG/5 ML 2000 MG GT (12:01)
[2021-01-03 12:25] LABS: Bedside Glucose 220 mg/dL (70-110)
[2021-01-03 13:11] LABS: Bedside Glucose 264 mg/dL (70-110)
[2021-01-03 15:36] LABS: Bedside Glucose 272 mg/dL (70-110)
--- NOTE | 2021-01-03 17:17 | PCM.PN.REN ---
Patient Problems: Active and Suspected Problems Cardiac arrest (Acute) STEMI (ST elevation myocardial infarction) (Acute) Ventricular fibrillation (Acute) Acute hypoxic respiratory failure (Acute) - Physical Exam Vitals/I&O's: Vital Signs Temp Pulse Resp BP Pulse Ox 100.5 F H 117 H 16 113/60 98 01/03/21 15:00 01/03/21 15:00 01/03/21 15:00 01/03/21 15:00 01/03/21 15:00 Oxygen Delivery Method Mechanical Ventilator Weight: 69 kg Body Mass Index (BMI) 24.1 Finger Stick Blood Glucose 224 Intake and Output for Last 24 Hours 01/01/21 01/02/21 01/03/21 23:59 23:59 23:59 Intake Total 3588.09 / 3690.44 2846.72 / 2846.72 2515.26 / 2515.26 Output Total 2360 / 2360 420 / 420 675 / 675 Balance 1228.09 / 1330.44 2426.72 / 2426.72 1840.26 / 1840.26 General: No apparent distress HEENT: Atraumatic, Normocephalic, - - Intubated OG tube Neck: Trachea Midline Lungs: Clear to auscultation, - - Coarse breath sounds anteriorly Cardiovascular: Regular rate, Regular Rhythm, Normal S1, Normal S2 Abdomen: Bowel Sounds Present Microbiology Past 72 Hours 12/31/20 22:55 Sputum, Induced/Lukens Gram Stain - Final 12/31/20 22:55 Sputum, Induced/Lukens Respiratory Culture - Final Streptococcus agalactiae (B) Presumptive C albicans Mixed Anh 12/31/20 20:20 Blood Culture (Wb) - Central Line Blood Culture - Preliminary Gram negative tristen 01/02/21 10:00 Stool C. difficile DNA Amplification - Final 12/31/20 22:40 Mucosa - Nasopharyngeal Respiratory Panel (PCR) - Final 12/31/20 16:40 Urine Catheter - De Jesus Legionella Antigen - Final 12/31/20 16:40 Urine Catheter - De Jesus Streptococcus pneumoniae Antigen (M - Final Laboratory Results 01/02/21 18:13: POC Glucose 204 H 01/02/21 18:35: Urine Color Yellow, Urine Clarity Cloudy, Urine pH 5.0, Ur Specific [place] 1.020, Urine Protein 30 H, Urine Glucose (UA) 100 H, Urine Ketones 5 H, Urine Occult Blood 250 H, Urine Nitrite Positive H, Urine Bilirubin Negative, Urine Urobilinogen Normal, Ur Leukocyte Esterase 100 H, Urine RBC > 100 SEEN, Urine WBC 10-25 SEEN, Ur Squamous Epith Cells 0-5 SEEN, Urine Bacteria RARE, Urine Mucus 0 SEEN, Urine Yeast 1+ 01/02/21 18:35: Ur Random Sodium 12, Urine Creatinine 312.00 01/02/21 19:30: POC Glucose 219 H 01/02/21 20:34: POC Glucose 194 H 01/02/21 21:33: POC Glucose 163 H 01/02/21 22:28: POC Glucose 174 H 01/02/21 23:42: POC Glucose 140 H 01/03/21 00:31: POC Glucose 101 01/03/21 02:12: POC Glucose 222 H 01/03/21 04:00: WBC 21.8 H, RBC 2.66 L, Hgb 8.0 L, Hct 25.6 L, MCV 96.2, MCH 30.1, MCHC 31.3 L D, RDW Std Deviation 46.3 H, RDW Coeff of Ana 13.2, Plt Count 164, MPV 10.1, Immature Gran % (Auto) 3.200 H, Neut % (Auto) 85.3 H, Lymph % (Auto) 6.5 L, [place] % (Auto) 4.7, Eos % (Auto) 0.1, Baso % (Auto) 0.2, Absolute Neuts (auto) 18.6 H, Absolute Lymphs (auto) 1.42, Nucleated RBC % 0 01/03/21 04:00: Sodium 143, Potassium 3.8, Chloride 113 H, Carbon Dioxide 23.0, Anion Gap 7, BUN 37 H, Creatinine 1.91 H, Estim Creat Clear Calc 31.10, Est GFR (MDRD) Af Amer 36 L, Est GFR (MDRD) Non-Af 30 L, BUN/Creatinine Ratio 19.4, Glucose 342 H, Calcium 7.7 L, Total Bilirubin 0.80, Direct Bilirubin 0.21, AST 84 H, ALT 66 H, Alkaline Phosphatase 186 H, Total Protein 5.6 L, Albumin 2.1 L, Globulin 3.5 01/03/21 05:37: POC Glucose 436 H 01/03/21 07:04: POC Glucose 385 H 01/03/21 08:05: POC Glucose 394 H 01/03/21 08:53: POC Glucose 345 H 01/03/21 09:56: POC Glucose 306 H 01/03/21 11:14: POC Glucose 224 H 01/03/21 11:57: POC Glucose 220 H 01/03/21 13:05: POC Glucose 264 H 01/03/21 15:13: POC Glucose 272 H Current Medications Acetaminophen (Acetaminophen 650 Mg/20 Ml Udc) 650 mg GT Q6H PRN PRN PRN Reason: Pain Score 1-10/Temp > 100.7 F Last Admin: 01/03/21 12:02 Dose: 650 mg Documented by: Albuterol/Ipratropium (Ipratropium/Albuterol Sulfate 3 Ml Ampul.Neb) 3 ml INHALATION Q4H.RT PRN PRN Reason: wheezing Aspirin (Aspirin 81 Mg Tab.Chew) 81 mg GT DAILY@0800 [facility] Last Admin: 01/03/21 11:34 Dose: 81 mg Documented by: Atorvastatin Calcium (Atorvastatin Calcium 40 Mg Tablet) 40 mg GT QHS [facility] Last Admin: 01/02/21 20:02 Dose: 40 mg Documented by: Atropine Sulfate (Atropine Sulfate 1 Mg/10 Ml Syringe) 0.5 mg IV UD PRN PRN Reason: HR <50 bpm Chlorhexidine Gluconate (Chlorhexidine 15 Ml) 15 ml PO BID [facility] Last Admin: 01/03/21 11:34 Dose: 15 ml Documented by: Dextrose (Dextrose 50%-Water 25 Gm/50 Ml Disp.Syrin) 0 gm IV X1 PRN; Protocol PRN Reason: Hypoglycemia Protocol Heparin Sodium (Beef Lung) (Heparin Lock 500 Unit/5 Ml In 10 Ml Syringe) 500 unit IV UD PRN PRN Reason: HEPARIN FLUSH Heparin Sodium (Porcine) (Heparin Injection (Vial) 5,000 Unit/Ml Vial) 5,000 unit SC Q8 [facility] Last Admin: 01/03/21 13:19 Dose: 5,000 unit Documented by: Sodium Chloride () 250 mls @ 15 mls/hr IV .[id number] PRN PRN Reason: Saline Flush Sodium Chloride () 250 mls @ 15 mls/hr IV .[id number] PRN PRN Reason: Additional IVPB Infusion Piperacillin Sod/Tazobactam (Sod 3.375 gm/ Sodium Chloride) 50 mls @ 12.5 mls/hr IV Q8 [facility] Last Admin: 01/03/21 13:17 Dose: 12.5 mls/hr Documented by: Pantoprazole Sodium 40 mg/ (Sodium Chloride) 110 mls @ 330 mls/hr IV Q12 [facility] Last Infusion: 01/03/21 11:54 Dose: Infused Documented by: Enteral Nutritional Formula (Vital Af 1.2 Raffi Liquid) 1,000 mls @ 60 mls/hr GT .[id number] [facility] Last Admin: 01/03/21 04:04 Dose: 60 mls/hr Documented by: Insulin Glargine (Insulin Glargine 100 Units/Ml Pen) 60 units SC BID [facility] Last Admin: 01/03/21 11:59 Dose: 60 u Documented by: Insulin Human Lispro (Insulin Lispro 100 Unit/Ml Insuln.Pen) 0 unit SC Q4 [facility]; Protocol Last Admin: 01/03/21 15:14 Dose: 9 u Documented by: Levetiracetam (Levetiracetam Oral Solution 500 Mg/5 Ml) 2,000 mg GT BID [facility] Last Admin: 01/03/21 12:01 Dose: 2,000 mg Documented by: Prochlorperazine Edisylate (Prochlorperazine 10 Mg/2 Ml Vial) 5 mg IV Q4H PRN PRN PRN Reason: Breakthrough Nausea/Vomiting Senna/Docusate Sodium (Senna/Docusate Sodium 1 Tablet) 1 tablet PO BID PRN PRN Reason: CONSTIPATION Sodium Chloride (0.9% Saline Lock 10 Ml Syringe) 10 - 40 ml IV UD PRN PRN Reason: SALINE FLUSH Last Admin: 01/03/21 12:00 Dose: 20 ml Documented by: Ticagrelor (Ticagrelor 90 Mg Tablet) 90 mg GT BID [facility] Last Admin: 01/03/21 11:34 Dose: 90 mg Documented by: Medical Necessity - Tobacco Use Smoking Status: Unknown if ever smoked Assessment/Plan All Active Problems History of coronary artery stent placement (Acute ~12/31/20) Cardiac arrest (Acute) STEMI (ST elevation myocardial infarction) (Acute) Ventricular fibrillation (Acute) Acute hypoxic respiratory failure (Acute) DOUGLAS?likely ATN with cardiac arrest and shock Hypernatremia iatrogenic resolved Hypokalemia resolved STEMI s/p RCA PCI with stent Cardiac arrest with V. fib and PEA s/p ACLS Respiratory failure s/p intubation on vent SNa 143 better Scr 1.9 better keep MAP>65 avoid nephrotoxins for transfer to [facility]
[2021-01-03 18:16] LABS: Bedside Glucose 164 mg/dL (70-110)
--- NOTE | 2021-01-03 20:23 | NURSING ---
1999- Called and report given to Ed, RN at [facility]'s neuro ICU. [facility] transport is here now getting patient ready. 2039-Pt transported with [facility].
[2021-01-04 00:56] LABS: Bedside Glucose 155 mg/dL (70-110)
--- NOTE | 2021-01-09 06:26 | CRPHASE1 ---
Patient Communication PHII Cardiac Rehab Discussed with Patient:: No - Patient was sedated on mechanical ventilation. Guide to Cardiac Rehab Given to Patient:: No Cardiac Rehab Facility Choice List Given to Patient:: No - Patient transfer to tertiary care center d/t anoxic brain. Choice Program [facility] CR PHII:: Communication Given to CR, Refer to [facility] Restaurant Kitchen And Service Manager:: Wu Tarango Refer Phase II Cardiac Rehab:: No - Patient transfer to tertiary care [place] d/t brain injury post v-fib arrest Cardiac Rehabilitation Info Cardiac Rehabilitation Program Information: Cardiac Rehabilitation is important for patients like you who are recovering from a heart problem. Cardiac rehabilitation programs are recognized as integral to the continued care of the patient with coronary heart disease. The cardiac rehabilitation program is designed to optimize a patient's physical, psychological, and social functioning. Health career services coordinator work in cardiac rehabilitation programs and assist you with getting the treatments you need to get stronger and healthier - like exercise, healthy eating habits, and medications. Cardiac rehabilitation has been show to help people with heart problems live longer and have better life enjoyment than people who do not go to cardiac rehabilitation. Please contact the Cardiac Rehabilitation Program at [facility] at in two weeks if you have not heard from them.
--- NOTE | 2021-01-09 06:29 | CRPH1.INSTRU ---
General Education CAD and cardiac anatomy and function:: Not instructed Explanation of diagnoses and procedures:: Not instructed Sign/Symptoms of SC:: Not instructed Antiplatelet therapy: Not instructed Proper use of NTG-SL: Not instructed Emergency procedures and activation of EMS: Not instructed Compliance of all prescribed medications: Not instructed - Patient medically sedated, on mechanical ventilation, anoxic brain injury due to v-fib cardiac arrest.
== END 2021-01-03 20:20 | disposition short-term general hospital (02) | DRG 216 ==
LOC: ED 15:18 → ICU 16:23
PROVIDERS: Internal Medicine; Internal Medicine Critical Care Medicine; Specialist; Admitting Provider Internal Medicine; Emergency Provider Emergency Medicine; PCP Family Medicine; Referring Provider Internal Medicine; Visit Provider Internal Medicine
DX: I21.19 ST elevation (STEMI) myocardial infarction involving other coronary artery of inferior wall (principal); I46.9 Cardiac arrest, cause unspecified; J96.01 Acute respiratory failure with hypoxia; I49.01 Ventricular fibrillation; N17.0 Acute kidney failure with tubular necrosis; K72.00 Acute and subacute hepatic failure without coma; G93.1 Anoxic brain damage, not elsewhere classified; E87.1 Hypo-osmolality and hyponatremia; E87.0 Hyperosmolality and hypernatremia; E10.65 Type 1 diabetes mellitus with hyperglycemia; F17.200 Nicotine dependence, unspecified, uncomplicated; I44.0 Atrioventricular block, first degree; E87.6 Hypokalemia; I25.10 Atherosclerotic heart disease of native coronary artery without angina pectoris
CPT/HCPCS: 31500; 31720; 36600; 51702; 70551; 71045; 74018; 76770; 80048; 80053; 80076; 81001; 82140; 82550; 82570; 82803; 82962; 83605; 83735; 84100; 84300; 84443; 84478; 84484; 84703; 85025; 85027; 85610; 85730; 87040; 87070; 87077; 87186; 87205; 87449; 87493; 87633; 87641; 92941; 92950; 93005; 93458; 94002; 94003; 94799; 95819; 97802; 99285; J7050; J7120; Q9967; A4216; C1725; C1769; C1874; C1887; C1894; C9606; J1327; J3010; J3490